=== PATIENT | male | born 1975 | race Caucasian/White ===

== ENCOUNTER → 2016-04-19 | Outpatient (CLI) | payer OTHER ==
[~2016-04-19] MED LIST: AMOX500T3 PO; DIPH-416 PO; ERTA1INJ IV; HYDR-5688 PO; OXYC-57 PO; OXYC1CAP5 PO; RIFA300C34 PO; RXC5 PO
== END | disposition home or self-care (01) ==
LOC: C.RDSM 14:22
PROVIDERS: ATTEND Physical Medicine & Rehabilitation Sports Medicine
DX: S46.012D Strain of muscle(s) and tendon(s) of the rotator cuff of left shoulder, subsequent encounter (principal); M25.612 Stiffness of left shoulder, not elsewhere classified; X58.XXXD Exposure to other specified factors, subsequent encounter

== ENCOUNTER → 2016-05-09 | Day surgery (SDC) | payer OTHER ==
[2016-04-29 10:31] VITALS: Ht 175.3 cm; Wt 75.0 kg
[~2016-05-09] VITALS: Ht 175.3 cm; Wt 75.0 kg
[~2016-05-09] MED LIST changes: +ARTIFICIAL TEARS OP OINT 3.5 GM TUBE ONE; +ATROPINE SULFATE 0.1 MG/ML 5ML SYR IV PRN; +CEFAZOLIN 1000MG/55 ML D5W IV SCH; +CEFAZOLIN IV 2,000 MG/60 ML D5W IV ONE; +DEXAMETHASONE SOD INJ 4 MG/ML VIAL IV PRN; +DEXAMETHASONE SOD INJ 4 MG/ML VIAL ONE; +EpHEDrine SULFATE INJ 50 MG/ML AMP IV PRN; +EpHEDrine SULFATE INJ 50 MG/ML AMP ONE; +EpINEphrine INJ 1MG/ML AMP 1 MG/ML AMP ONE; +FENTANYL CITRATE INJ 50 MCG/1 ML 2 ML VIAL IV PRN; +FENTANYL CITRATE INJ 50 MCG/1 ML 2 ML VIAL ONE; +GLYCOPYRROLATE INJ 0.2 MG/ML VIAL ONE; -HYDR-5688 PO; +KETOROLAC TROMETHAMINE 30 MG/ML VIAL IV. PRN; +LABETALOL HCL IV 5 MG/ML 20ML IV PRN; +LACTATED RINGER'S 1000ML 1,000 ML IV SCH; +LIDOCAINE HCL 2% 2 ML VIAL (20MG/ML) ONE; +LIDOCAINE/EPINEPHRINE 1% INJ 50 ML VIAL ONE; +METOCLOPRAMIDE HCL INJ 5 MG/ML 2 ML VIAL IV PRN; +MIDAZOLAM HCL 1 MG/ML 2ML VIAL ONE; +MoRPHine SULFATE 10 MG/ML CARP/VIAL IV PRN; +MoRPHine SULFATE 2 MG/ML CARP IV PRN; +MoRPHine SULFATE 4 MG/ML 1 ML CARP\\VIAL IV PRN; +NEOSTIGMINE METHYLSULFATE 5 MG/5 ML SYR ONE; +ONDANSETRON INJ 2 MG/ML 2 ML VIAL IV PRN; +ONDANSETRON INJ 2 MG/ML 2 ML VIAL ONE; -OXYC-57 PO; +OXYCODONE/ACETAMINOPHEN 5-325 TAB PO PRN; +PHENYLEPHRINE 100MCG/ML 5ML SYR IV PRN; +PHENYLEPHRINE HCL INJ 10 MG/ML VIAL ONE; +PROPOFOL IV EMULSION 10 MG/ML 20 ML VIAL IV ONE; +ROCURONIUM BROMIDE 10 MG/ML 5 ML VIAL ONE; +ROPIVACAINE 0.5% 5 MG/ML 30 ML VIAL ONE; +SODIUM CHLORIDE 0.9% 1000ML 1,000 ML IV SCH; +SUCCINYLCHOLINE CHLORIDE 20 MG/ML 10 ML VIAL IV ONE
--- NOTE | 2016-05-09 09:10 | History & Physical Bridge Note ---
H&P Re-Evaluation Bridge Note: I have examined the patient, reviewed the History & Physical and in the interval since the performance of the History & Physical I have noted the following changes of clinical significance: No changes noted
--- NOTE | 2016-05-09 14:04 | [facility] Post Operative Brief Note ---
Immediate Operative Summary Operative Date May 09, 2016. Pre-Operative Diagnosis Left Shoulder Stiffness, S/P Rotator Cuff Repair Post-Operative Diagnosis same Procedure(s) Performed Left Shoulder Arthroscopy,Extensive Debridement, Biopsies,manipulation Surgeon Dr. Mary Hodges Media Reconciliation Specialist Surgeon(s) Dr. Joesph Mayberry Estimated Blood Loss 50cc Findings healed cuff, adhesive capsulitis, extensive scarring Specimens 1. Left Shoulder SubAcromial Space--Do Not Combine--Janna Prosthetic Joint for Gram Stain, Aerobic, Anaerobic Culture--Will HOLD for 14 days for P.Acnes 2.Left Shoulder Gleno-Humeral Joint-Tissue Culture-Do Not Combine with SubAcromial Space Culture--Janna Prosthetic Joint for Gram Stain,Aerobic, Anaerobic Cultures--Will HOLD for 14 days for P.Acnes #2--Left Shoulder Gleno-Humeral Joint is also a Swab Culture Drains 0 Anesthesia general with block Complication(s) None Disposition Recovery Room / PACU
--- NOTE | 2016-05-09 14:18 | Discharge Instructions-SurgCtr ---
Discharge Instructions Visit Reason for Visit: Left Shoulder Stiffness, S/P Rotator Cuff Repair Discharge Discharge Diagnosis / Problem: status post left shoulder arthroscopic capsular release Discharge Goals Goal(s): Decrease discomfort, Improve function, Increase independence Activity Recommendations Activity Limitations: per Instructions/Follow-up section Anesthesia . Post Anesthesia Instructions: If you have had General Anesthesia or IV Sedation: * Do not drive today. * Resume driving when surgeon permits. * Do not make important decisions or sign legal documents today. * Call surgeon for: 1. Temperature elevations greater than 101 degrees F. 2. Uncontrollable pain. 3. Excessive bleeding. 4. Persistent nausea and vomiting. 5. Medication intolerance (nausea, vomiting or rash). * For nausea and vomiting use only clear liquids such as: tea, soda, bouillon until nausea subsides, then gradually increase diet as tolerated. * If you have any concerns or questions, call your surgeon's office. If physician is unavailable and it is an emergency, call 911 or go to the nearest emergency room. . Instructions / Follow-Up Instructions / Follow-Up The following are instructions to follow after "Shoulder Surgery" including, Acromioplasty, Rotator Cuff Repair and Instability Surgery ACTIVITY RECOMMENDATIONS: * Minimize activity after surgery. * No excessive walking, jogging, sports or laboring. * Return to activity is individualized depending on the patient and type of surgery. * Driving is not permitted until at least your first post operative visit. Please ask your doctor when it is safe to resume driving. * Expect increased discomfort with increased activity. Continue to ice the shoulder as needed. SCHOOL/WORK RECOMMENDATIONS: * You may return to sedentary work or school when you are feeling more comfortable. This is usually 3-7 days after surgery. MEDICATIONS: * You will have a prescription for pain medication and an anti-inflammatory medication after surgery. * Use the pain medication for severe pain and the anti-inflammatory for less severe pain. Once the pain medication has run out, try to use the anti-inflammatory medication. If this is not effective, contact the office for assistance. * The pain medication may cause nausea, constipation and drowsiness. You should see how they affect you before driving or similar activity. * The anti-inflammatory medication may cause stomach upset and bleeding. If this occurs let your doctor know immediately . * Take a stool softener like Colace or a laxative like Senokot to prevent constipation. DIET: * Resume previous diet. SPECIAL CARE: ICE: You have the option of an ice cooler, gel packs or ice bags. * If you have an ice cooler, refer to the instructions for that device. The ice cooler may be used continuously. * If you do not have an ice cooler, you will need to use ice bags or gel packs. Do not apply ice directly to the skin. Use a thin dressing or mac shirt between the skin and ice bag. Apply ice for 20-30 minutes and repeat every 2-4 hours. This is especially important for the first 7-10 days after surgery. Once the pain improves, use ice as needed. ELEVATION: * You may be more comfortable sleeping in an upright position. Use the sling to elevate your arm. DRESSING: * Your dressing will be changed at your first therapy appointment approximately 4-5 days after surgery. Band-aids, tape strips or gauze may be applied. You may then change your dressing daily. * Reapply dressing followed by the EBIce cooling pad (if chosen) and then the sling. * Always wash your hands prior to touching the incision area. * Once the stitches are removed, you may leave the wound open to air or cover with gauze. * Expect some bloody drainage for the first few days after surgery. * Leave the tape strips, if present, in place for 5-7 days. * Band-aids and gauze may be changed daily. * There may be a gauze pad in your armpit area. This can be changed daily or replaced by a dry washcloth. SLING/BRACE: * You will need to use a sling or brace after surgery. The length of time the sling is used is dependent upon the type of surgery performed. * Arthroscopic Acromioplasty requires use of the sling for 2-4 weeks for comfort. * Labral procedures and Rotator Cuff Repairs require use of the sling for a longer period of time. Please check with your doctor prior to discontinuing the sling. BATHING: * You may shower or sponge-bathe immediately after surgery. The post operative shoulder dressing is mostly water-tight. You may shower right over this dressing, but be reasonably careful not to get the gauze or incision wet. * Once the dressing has been changed on the fourth or fifth day after surgery, you may shower and get the incision wet. * Wash with regular soap and water. * Do not bathe (submerge the incision), soak, swim or use a hot tub until the incision is completely healed over with normal skin and the doctor has given the OK to proceed. * There is no need to apply any ointments, powders or salves to your incision. * Do not apply alcohol or hydrogen peroxide directly to the incision. * Diluted peroxide (50:50 mixture with sterile saline) may be used to clean dried blood from around the incision area. THERAPY: * You will begin therapy four or five days after surgery. * Organized therapy with the therapist is important for the first 2-4 months after surgery depending on the type of procedure. During that time you will attend therapy 1-3 times per week. * You will also need to do daily exercises for range of motion and strength as instructed. * Patients who have a Capsular Shift Procedure will need to abide by temporary range of motion limitations. * Patients having Rotator Cuff Surgery are not allowed to actively lift their arms until 4-6 weeks after surgery. * Please check with your doctor regarding appropriate motion restrictions. FOLLOW UP VISIT: * If not already scheduled, please call the office at to schedule a follow-up appointment for 10 days after surgery and monthly thereafter. * Follow up with physical therapy on day / [place] * Follow up with Dr. Hodges on 05/20/16 Procedures Procedures Performed: Left Shoulder Arthroscopy,Extensive Debridement, Biopsies,manipulation Pending Studies Studies pending at discharge: no Medical Emergencies . Who to Call and When: Medical Emergencies: If at any time you feel your situation is an emergency, please call 911 immediately. . Non-Emergent Contact Non-Emergency issues call your: Surgeon Call Non-Emergent contact if: you have a fever, your pain is not controlled, wound has increased drainage . . "Provider Documentation" section prepared by Fabian Murphy.
--- NOTE | 2016-05-09 14:20 | [facility] Post Operative Brief Note ---
Immediate Operative Summary Operative Date May 09, 2016. Pre-Operative Diagnosis Left Shoulder Stiffness, S/P Rotator Cuff Repair Post-Operative Diagnosis same Procedure(s) Performed Left Shoulder Arthroscopy,Extensive Debridement, Biopsies,manipulation Surgeon Dr. Mary Hodges Manager Field Service Surgeon(s) Dr. Fabian Mayberry Estimated Blood Loss 50cc Specimens 1. Left Shoulder SubAcromial Space--Do Not Combine--Janna Prosthetic Joint for Gram Stain, Aerobic, Anaerobic Culture--Will HOLD for 14 days for P.Acnes 2.Left Shoulder Gleno-Humeral Joint-Tissue Culture-Do Not Combine with SubAcromial Space Culture--Janna Prosthetic Joint for Gram Stain,Aerobic, Anaerobic Cultures--Will HOLD for 14 days for P.Acnes #2--Left Shoulder Gleno-Humeral Joint is also a Swab Culture Complication(s) None Disposition PCU
[2016-05-09 15:13] VITALS: TEMP 36.5
--- NOTE | 2016-05-09 15:32 | Anesthesia Progress Nt - [facility] ---
Anesthesia Post Op Note Date & Time May 09, 2016 at 15:33 Vital Signs Pain Intensity: 2 Vital Signs Past 12 Hours Date Time Temp Pulse Resp B/P Pulse Ox O2 Delivery O2 Flow Rate FiO2 05/09/16 15:13 36.5 88 16 117/72 95 Room Air 05/09/16 14:48 87 19 05/09/16 14:48 36.7 05/09/16 14:48 86 19 141/92 95 05/09/16 14:43 85 22 05/09/16 14:43 85 22 129/93 93 05/09/16 14:38 86 17 05/09/16 14:38 87 17 143/97 93 05/09/16 14:33 84 18 136/80 94 05/09/16 14:33 83 18 05/09/16 14:28 80 24 126/89 96 05/09/16 14:28 80 24 05/09/16 14:23 83 22 05/09/16 14:23 83 22 120/87 100 05/09/16 14:18 83 19 122/90 100 05/09/16 14:18 82 19 05/09/16 14:13 88 25 131/86 100 05/09/16 14:13 88 25 05/09/16 14:08 87 23 05/09/16 14:08 88 23 134/88 100 05/09/16 14:03 90 14 131/88 99 05/09/16 14:03 85 14 05/09/16 14:02 37.4 90 20 126/88 99 Diffusion Mask 8 05/09/16 10:30 70 05/09/16 10:30 71 22 98 05/09/16 10:28 104/65 05/09/16 10:25 69 18 98 05/09/16 10:25 69 05/09/16 10:23 107/68 05/09/16 10:20 70 05/09/16 10:20 71 21 98 05/09/16 10:18 113/77 05/09/16 10:15 70 05/09/16 10:15 69 22 98 05/09/16 10:13 120/71 05/09/16 10:10 69 05/09/16 10:10 69 21 98 05/09/16 10:08 119/75 05/09/16 10:05 74 05/09/16 10:05 75 23 98 05/09/16 10:04 77 05/09/16 10:04 80 23 98 05/09/16 10:03 127/71 05/09/16 09:59 80 20 98 05/09/16 09:59 78 05/09/16 09:58 126/73 05/09/16 09:54 75 05/09/16 09:54 77 16 97 05/09/16 09:53 125/79 05/09/16 09:49 79 05/09/16 09:49 77 22 98 05/09/16 09:48 123/78 05/09/16 09:44 76 05/09/16 09:44 76 21 98 05/09/16 09:43 115/78 05/09/16 09:39 76 26 99 05/09/16 09:39 78 05/09/16 09:38 105/79 05/09/16 09:36 109/76 05/09/16 09:34 64 0 05/09/16 09:29 74 0 05/09/16 09:24 66 0 05/09/16 09:19 67 0 05/09/16 09:14 0 05/09/16 09:09 0 05/09/16 09:04 0 05/09/16 08:59 0 05/09/16 08:37 36.7 77 16 109/77 97 Room Air Notes Mental Status: alert / awake / arousable, participated in evaluation Pt Amnestic to Procedure: Yes Nausea / Vomiting: adequately controlled Pain: adequately controlled Airway Patency, RR, SpO2: stable & adequate BP & HR: stable & adequate Hydration State: stable & adequate Anesthetic Complications: no major complications apparent
[2016-05-09 15:35] VITALS: BP 116/75; PULSE 88; O2SAT 95
--- NOTE | 2016-05-09 18:43 | OPERATIVE REPORT ---
DATE OF OPERATION: 05/09/2016 PREOPERATIVE DIAGNOSIS: Left shoulder stiffness, status post rotator cuff repair. POSTOPERATIVE DIAGNOSIS: Same. PROCEDURE: Bursal and articular synovial biopsies, examination and manipulation under anesthesia, extensive debridement of subacromial space, scar tissue and arthroscopic capsular releases intraarticularly. SURGEON: Miky Hodges MD CLOTH BLEACHING RANGE BACK TENDER: Fabian Sims MD fellow. No PA available. ANESTHESIA: General with interscalene block. INDICATIONS OF PROCEDURE: The patient is a 40-year-old male who is approximately 6 months status post a left shoulder rotator cuff repair. This was a traumatic tear that occurred at work and was fixed with 3 anchors. The patient has trouble with range of motion throughout his postoperative course and recently has plateaued with his range of motion. He has never had any erythema, swelling or wound drainage. He had no pain at rest or at night. The pain only when he stretches. X-rays show no complication. MRI shows that the rotator cuff is healed. There was no fluid around the anchors, capsular volume the small and there is mild bone marrow edema in the humeral head. There was no abscess formation. Preoperative sed rate, C-reactive protein and white blood cell count are all elevated. 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 He has not had fevers, chills, sweats, nausea, vomiting, diarrhea, cough, rhinorrhea, or dysuria. I discussed with him that there is a possibility that he may have an indolent infection based upon his stiffness and preoperative labs. Plan is to obtain some tissue biopsies to send for culture and proceed from there. Today, our main goal is to take the biopsy and do capsular releases to improve his range of motion. I discussed with him that if he did indeed have an infection, further surgery might be necessary along with consultation with ID. After surgery, he will be started on amoxicillin and rifampin to cover for appropriate Propionibacterium acnes potential infection. DESCRIPTION OF PROCEDURE: The patient was taken to the operating room. He was positioned lateral decubitus with the left side up. The left upper extremity was prepped and draped in usual sterile fashion. No bacteriostatic agents were utilized. The shoulder was not injected. Preoperative antibiotics were held and no epinephrine was utilized in the initial saline. Once the bursal and its articular biopsies and cultures had been obtained, intravenous antibiotics were administered. The patient was identified as [place]. He identified the left shoulder as the operative site. I marked it with my initials. A preop surgical time out was performed. Axillary roll was inserted. The torso was secured to the table. The table was airplaned posteriorly. The shoulder was placed into 10 pounds of lateral and distal traction. This was alternated between 5-10 pounds depending on surgical needs. The left upper extremity was prepped and draped in usual sterile fashion. Ioban was utilized to exclude the axilla from the field. The Arthrex shoulder tower was utilized. DVT prophylaxis was done with foot pumps and early mobility. The exam under anesthesia showed forward elevation of approximately 120 degrees compared 170 on the contralateral side. At this side, external rotation was about 0-5 degrees compared to 60 on the right. At 90 degrees of abduction, external rotation was about 45 compared 105 on the left. Internal rotation at 90 degrees of abduction was 30 degrees on the left, 45 on the right. A gentle manipulation was attempted; however, there was no improvement. The prior posterior soft spot viewing portal was utilized and access was gained at the subacromial space. A spinal needle was utilized to localize a portal distal anterior to the prior portal. Immediately on entering the subacromial space, significant scarring was noted with some degree of inflammation present. The shaver was introduced and the space was created for orientation and visualization. I then took multiple synovial biopsies using a basket punch. These were taken off the bursal tissue and scar tissue and multiple biopsies were taken in the region of the exposed sutures. The sutures were noted to be intact. No anchors were visualized. This was labeled as subacromial space. The scope was introduced into the joint and an anterior working portal in the rotator interval was created using the outside-in technique. There were significant adhesions noted between the rotator interval, the biceps, and the anterior humeral head. The rotator interval was thickened and contracted and this was debrided with basket forceps and motorized shaver. The rotator interval tissue was harvested with basket forceps. I also took some posterior capsular biopsy and anterior capsular biopsy. I then switched the scope anterior and through the posterior portal, I was able to take several biopsies directly from the suture anchor site of the rotator cuff repair. The biceps tendon was intact, but there were adhesions noted all around it. After taking the biopsies, the intravenous antibiotics were administered. I also took a swab culture from the area of the suture anchors posterosuperiorly that I could see. This was also sent as the articular specimen. These cultures were sent for Gram stain, aerobic and anaerobic and specific instructions as the prosthetic joint culture to held Propionibacterium acnes for 2 weeks. The adhesions between the biceps and rotator cuff were released. The adhesions between the biceps and the articular surfaces were also released. The biceps was normal. The labrum was intact circumferentially. The articular cartilage was normal throughout the shoulder with the exception of a 0.5 x 1.5 area where there was some shallow chondrosis noted superiorly. This would then perhaps 1 cm medial to the articular cartilage margin at about the center of the humeral head. The rotator cuff was noted to be intact. Sutures were visualized. There was normal appearing tissue from the rotator cuff coming down and attaching to the greater tuberosity which could not be displaced. The bare area was normal. The axillary pouch was contracted. The scope was placed anteriorly and the posterosuperior and posteroinferior capsule released under direct visualization and debrided with a shaver back to the muscular layer. The division inferiorly was carried anterior and I very judiciously debrided this capsule and took care to avoid the axillary nerve. The division was applied as close the glenoid as possible. The rotator interval was thoroughly debrided. The subscapularis was identified. There was a adherent capsular tissue to this and inferior to the subscapularis in the anteroinferior capsule was markedly thickened and contracted. This was carefully divided with basket forceps cautery and debrided with a shaver. Again, care was taken in the axillary pouch to not debride, avoid the axillary nerve, and stay close to the glenoid. This resulted in overall improvement of capsular volume. The subscap was normal. There were no loose bodies. The scope was then placed back into the subacromial space and a thorough subacromial bursectomy was performed. Adhesions between the deltoid and the humerus were released anterior, posterior and lateral. Adhesions between the rotator cuff and the acromion and throughout were released as well. Sutures were noted. The rotator cuff was intact without any evidence of tear. The instruments were removed from the shoulder. The portals were closed with 4-0 nylon, a soft sterile dressing was applied. A manipulation was then performed. Forward elevation I could get to about 150. This was difficult due to swelling. External rotation was 30-40 degrees at the side. With the arm at 90 degrees of abduction, external rotation was 85 degrees and internal rotation was about 45 degrees. I did feel a little bit giving of the tissue as I manipulated the arm. Manipulation throughout the range of external rotation and forward elevation was performed. ABD was placed in the armpit. A simple arm sling was applied. He was awakened from anesthesia without difficulty and taken to recovery room in stable condition. Specimens were as mentioned above. There were no complications. Counts were correct at the end of case. Blood loss was approximately 100 mL. At the conclusion of the operation, I spoke to patient's and informed her of my findings. Postoperative instructions were given. He will be started on the rifampin and amoxicillin. He is starting the physical therapy tomorrow and will have therapy with a therapist 3 times a week and then work daily several times on his own. I attest to the content of the Intraoperative Record and any orders documented therein. Any exceptions are noted below. MTDD
== END | disposition home or self-care (01) ==
LOC: X.SURG 08:20
PROVIDERS: ATTEND Physical Medicine & Rehabilitation Sports Medicine
DX: M25.612 Stiffness of left shoulder, not elsewhere classified (principal); S43.422D Sprain of left rotator cuff capsule, subsequent encounter; Z98.890 Other specified postprocedural states; X58.XXXD Exposure to other specified factors, subsequent encounter; M00.9 Pyogenic arthritis, unspecified; E78.5 Hyperlipidemia, unspecified

== ENCOUNTER → 2016-05-17 | Outpatient (CLI) | payer OTHER ==
[~2016-05-17] MED LIST changes: -ARTIFICIAL TEARS OP OINT 3.5 GM TUBE ONE; -ATROPINE SULFATE 0.1 MG/ML 5ML SYR IV PRN; -CEFAZOLIN 1000MG/55 ML D5W IV SCH; -CEFAZOLIN IV 2,000 MG/60 ML D5W IV ONE; -DEXAMETHASONE SOD INJ 4 MG/ML VIAL IV PRN; -DEXAMETHASONE SOD INJ 4 MG/ML VIAL ONE; -EpHEDrine SULFATE INJ 50 MG/ML AMP IV PRN; -EpHEDrine SULFATE INJ 50 MG/ML AMP ONE; -EpINEphrine INJ 1MG/ML AMP 1 MG/ML AMP ONE; -FENTANYL CITRATE INJ 50 MCG/1 ML 2 ML VIAL IV PRN; -FENTANYL CITRATE INJ 50 MCG/1 ML 2 ML VIAL ONE; -GLYCOPYRROLATE INJ 0.2 MG/ML VIAL ONE; -KETOROLAC TROMETHAMINE 30 MG/ML VIAL IV. PRN; -LABETALOL HCL IV 5 MG/ML 20ML IV PRN; -LACTATED RINGER'S 1000ML 1,000 ML IV SCH; -LIDOCAINE HCL 2% 2 ML VIAL (20MG/ML) ONE; -LIDOCAINE/EPINEPHRINE 1% INJ 50 ML VIAL ONE; -METOCLOPRAMIDE HCL INJ 5 MG/ML 2 ML VIAL IV PRN; -MIDAZOLAM HCL 1 MG/ML 2ML VIAL ONE; -MoRPHine SULFATE 10 MG/ML CARP/VIAL IV PRN; -MoRPHine SULFATE 2 MG/ML CARP IV PRN; -MoRPHine SULFATE 4 MG/ML 1 ML CARP\\VIAL IV PRN; -NEOSTIGMINE METHYLSULFATE 5 MG/5 ML SYR ONE; -ONDANSETRON INJ 2 MG/ML 2 ML VIAL IV PRN; -ONDANSETRON INJ 2 MG/ML 2 ML VIAL ONE; -OXYCODONE/ACETAMINOPHEN 5-325 TAB PO PRN; -PHENYLEPHRINE 100MCG/ML 5ML SYR IV PRN; -PHENYLEPHRINE HCL INJ 10 MG/ML VIAL ONE; -PROPOFOL IV EMULSION 10 MG/ML 20 ML VIAL IV ONE; -ROCURONIUM BROMIDE 10 MG/ML 5 ML VIAL ONE; -ROPIVACAINE 0.5% 5 MG/ML 30 ML VIAL ONE; -SODIUM CHLORIDE 0.9% 1000ML 1,000 ML IV SCH; -SUCCINYLCHOLINE CHLORIDE 20 MG/ML 10 ML VIAL IV ONE
== END | disposition home or self-care (01) ==
LOC: C.LAB1850 16:45
PROVIDERS: ATTEND Physical Medicine & Rehabilitation Sports Medicine
DX: Z01.818 Encounter for other preprocedural examination (principal)

== ENCOUNTER → 2016-05-22 | Day surgery (SDC) | payer OTHER ==
[~2016-05-22] VITALS: Ht 175.3 cm; Wt 75.0 kg
[~2016-05-22] MED LIST changes: +CEFTRIAXONE SOD INJ 2000 MG in DEXTROSE 5% 50ML IV SCH
[2016-05-22 13:05] VITALS: BP 127/80; PULSE 90; TEMP 37; O2SAT 97; Ht 175.3 cm; Wt 75.0 kg
== END | disposition home or self-care (01) ==
LOC: C.MTU 12:54
PROVIDERS: ATTEND Internal Medicine Infectious Disease
DX: M00.812 Arthritis due to other bacteria, left shoulder (principal); A49.8 Other bacterial infections of unspecified site

== ENCOUNTER → 2016-05-28 | Outpatient (CLI) | payer OTHER ==
[~2016-05-28] MED LIST changes: -AMOX500T3 PO; -CEFTRIAXONE SOD INJ 2000 MG in DEXTROSE 5% 50ML IV SCH; -RIFA300C34 PO
[2016-05-28 13:06] LABS: BASO % 0.2 %; BASO ABS # 0.03 K/uL (0-0.2); COMPLETE YES; EOS % 1.6 %; HEMATOCRIT 37.4 % (42-52); IG% 0.3 %; LYMPH % 10.1 %; LYMPH ABS # 1.58 K/uL (1.2-3.4); MEAN CELL VOLUME 90.1 fL (80-100); MEAN CORPUSCULAR HEMOGLOBIN 31.8 pg (25-34); MEAN CORPUSCULAR HGB CONC 35.3 g/dl (32-36); MEAN PLATELET VOLUME 9.2 fL (7.4-10.4); MONO % 7.2 %; NEUT % 80.6 %; PLATELET COUNT 270 K/uL (130-400); RED BLOOD COUNT 4.15 M/uL (4.7-6.1); WHITE BLOOD COUNT 15.61 K/uL (4.8-10.8)
[2016-05-28 13:35] LABS: ALT/SGPT 18 U/L (12-78); BLOOD UREA NITROGEN 8 mg/dl (7-18); BUN/CREATININE RATIO 9.1 (10-20); C-REACTIVE PROTEIN 6.13 mg/dl (0-0.29); CALCIUM 9.2 mg/dl (8.5-10.1); CARBON DIOXIDE 26 mmol/L (21-32); CHLORIDE 106 mmol/L (98-107); CREATININE 0.86 mg/dl (0.60-1.40); GLUCOSE 89 mg/dl (70-99); POTASSIUM 4.1 mmol/L (3.5-5.1); SODIUM 140 mmol/L (136-145)
[2016-05-28 13:37] LABS: ALB/GLOB RATIO 0.9 (0.9-2); ALKALINE PHOSPHATASE 90 U/L (45-117); AST/SGOT 9 U/L (15-37)
== END | disposition home or self-care (01) ==
LOC: C.LABSPEC 12:52
PROVIDERS: ATTEND Internal Medicine Infectious Disease
DX: A49.9 Bacterial infection, unspecified (principal); Z51.81 Encounter for therapeutic drug level monitoring; Z79.2 Long term (current) use of antibiotics

== ENCOUNTER → 2016-06-04 | Outpatient (CLI) | payer OTHER ==
[2016-06-04 13:17] LABS: BASO % 0.2 %; BASO ABS # 0.02 K/uL (0-0.2); COMPLETE YES; EOS % 2.6 %; HEMATOCRIT 37.9 % (42-52); IG% 0.4 %; LYMPH % 12.4 %; MEAN CELL VOLUME 90.2 fL (80-100); MEAN CORPUSCULAR HEMOGLOBIN 30.7 pg (25-34); MEAN PLATELET VOLUME 9.7 fL (7.4-10.4); MONO % 9.7 %; NEUT % 74.7 %; PLATELET COUNT 265 K/uL (130-400); WHITE BLOOD COUNT 12.11 K/uL (4.8-10.8)
[2016-06-04 13:23] LABS: ALT/SGPT 23 U/L (12-78); BLOOD UREA NITROGEN 8 mg/dl (7-18); BUN/CREATININE RATIO 9.9 (10-20); C-REACTIVE PROTEIN 8.28 mg/dl (0-0.29); CALCIUM 8.7 mg/dl (8.5-10.1); CARBON DIOXIDE 20 mmol/L (21-32); CHLORIDE 106 mmol/L (98-107); GLUCOSE 100 mg/dl (70-99); POTASSIUM 3.6 mmol/L (3.5-5.1); SODIUM 136 mmol/L (136-145)
[2016-06-04 13:26] LABS: ALB/GLOB RATIO 0.8 (0.9-2); ALKALINE PHOSPHATASE 94 U/L (45-117); AST/SGOT 11 U/L (15-37)
== END | disposition home or self-care (01) ==
LOC: C.LABSPEC 12:41
PROVIDERS: ATTEND Internal Medicine Infectious Disease
DX: A49.9 Bacterial infection, unspecified (principal); Y99.0 Civilian activity done for income or pay

== ENCOUNTER → 2016-06-06 | Outpatient (CLI) | payer OTHER | END | disposition home or self-care (01) | LOC: C.LAB1850 14:21 | PROVIDERS: ATTEND Internal Medicine Infectious Disease | DX: R19.7 Diarrhea, unspecified (principal) ==

== ENCOUNTER → 2016-06-11 | Outpatient (CLI) | payer OTHER ==
[~2016-06-11] MED LIST changes: -OXYC1CAP5 PO
[2016-06-11 13:00] LABS: BASO % 0.4 %; BASO ABS # 0.06 K/uL (0-0.2); COMPLETE YES; EOS % 2.8 %; HEMATOCRIT 38.7 % (42-52); LYMPH % 17.1 %; LYMPH ABS # 2.31 K/uL (1.2-3.4); MEAN CELL VOLUME 91.5 fL (80-100); MEAN CORPUSCULAR HEMOGLOBIN 32.2 pg (25-34); MEAN CORPUSCULAR HGB CONC 35.1 g/dl (32-36); MEAN PLATELET VOLUME 9.2 fL (7.4-10.4); MONO % 7.3 %; NEUT % 71.4 %; PLATELET COUNT 352 K/uL (130-400); RED BLOOD COUNT 4.23 M/uL (4.7-6.1); WHITE BLOOD COUNT 13.49 K/uL (4.8-10.8)
[2016-06-11 13:08] LABS: ALT/SGPT 40 U/L (12-78); BLOOD UREA NITROGEN 11 mg/dl (7-18); BUN/CREATININE RATIO 12.7 (10-20); C-REACTIVE PROTEIN 2.71 mg/dl (0-0.29); CARBON DIOXIDE 23 mmol/L (21-32); CHLORIDE 107 mmol/L (98-107); CREATININE 0.85 mg/dl (0.60-1.40); GLUCOSE 79 mg/dl (70-99); SODIUM 138 mmol/L (136-145)
[2016-06-11 13:11] LABS: ALB/GLOB RATIO 0.9 (0.9-2); ALKALINE PHOSPHATASE 111 U/L (45-117); AST/SGOT 19 U/L (15-37)
== END | disposition home or self-care (01) ==
LOC: C.LABSPEC 12:46
PROVIDERS: ATTEND Internal Medicine Infectious Disease
DX: A49.9 Bacterial infection, unspecified (principal)

== ENCOUNTER → 2016-06-17 | Outpatient (CLI) | payer OTHER ==
[2016-06-17 19:04] LABS: BASO % 0.3 %; BASO ABS # 0.04 K/uL (0-0.2); COMPLETE YES; EOS % 2.2 %; HEMATOCRIT 36.3 % (42-52); IG% 0.2 %; LYMPH % 14.5 %; LYMPH ABS # 2.11 K/uL (1.2-3.4); MEAN CELL VOLUME 87.7 fL (80-100); MEAN CORPUSCULAR HEMOGLOBIN 30.9 pg (25-34); MEAN CORPUSCULAR HGB CONC 35.3 g/dl (32-36); MEAN PLATELET VOLUME 9.4 fL (7.4-10.4); MONO % 6.3 %; NEUT % 76.5 %; PLATELET COUNT 321 K/uL (130-400); RED BLOOD COUNT 4.14 M/uL (4.7-6.1); WHITE BLOOD COUNT 14.52 K/uL (4.8-10.8)
[2016-06-17 19:18] LABS: ALB/GLOB RATIO 0.9 (0.9-2); ALKALINE PHOSPHATASE 102 U/L (45-117); ALT/SGPT 36 U/L (12-78); AST/SGOT 16 U/L (15-37); BLOOD UREA NITROGEN 9 mg/dl (7-18); BUN/CREATININE RATIO 8.4 (10-20); C-REACTIVE PROTEIN 2.55 mg/dl (0-0.29); CALCIUM 8.4 mg/dl (8.5-10.1); CARBON DIOXIDE 26 mmol/L (21-32); CHLORIDE 107 mmol/L (98-107); GLUCOSE 117 mg/dl (70-99); POTASSIUM 3.5 mmol/L (3.5-5.1); SODIUM 140 mmol/L (136-145)
== END | disposition home or self-care (01) ==
LOC: C.LABSPEC 09:03
PROVIDERS: ATTEND Internal Medicine Infectious Disease
DX: A49.9 Bacterial infection, unspecified (principal)

== ENCOUNTER → 2016-06-25 | Outpatient (CLI) | payer OTHER ==
[2016-06-25 18:30] LABS: BASO % 0.2 %; BASO ABS # 0.03 K/uL (0-0.2); COMPLETE YES; EOS % 3.2 %; HEMATOCRIT 37.9 % (42-52); IG% 0.2 %; LYMPH % 12.8 %; LYMPH ABS # 1.54 K/uL (1.2-3.4); MEAN CELL VOLUME 90.5 fL (80-100); MEAN CORPUSCULAR HEMOGLOBIN 30.8 pg (25-34); MEAN PLATELET VOLUME 9.4 fL (7.4-10.4); MONO % 7.6 %; PLATELET COUNT 284 K/uL (130-400); RED BLOOD COUNT 4.19 M/uL (4.7-6.1); WHITE BLOOD COUNT 12.04 K/uL (4.8-10.8)
[2016-06-25 18:39] LABS: ALT/SGPT 30 U/L (12-78); AST/SGOT 13 U/L (15-37); BLOOD UREA NITROGEN 8 mg/dl (7-18); CARBON DIOXIDE 27 mmol/L (21-32); CHLORIDE 105 mmol/L (98-107); CREATININE 0.93 mg/dl (0.60-1.40); GLUCOSE 74 mg/dl (70-99); POTASSIUM 4.3 mmol/L (3.5-5.1); SODIUM 139 mmol/L (136-145)
[2016-06-25 18:42] LABS: ALB/GLOB RATIO 0.9 (0.9-2); ALKALINE PHOSPHATASE 107 U/L (45-117); C-REACTIVE PROTEIN 4.34 mg/dl (0-0.29)
== END | disposition home or self-care (01) ==
LOC: C.LABSPEC 17:57
PROVIDERS: ATTEND Internal Medicine Infectious Disease
DX: A49.9 Bacterial infection, unspecified (principal)

== ENCOUNTER → 2016-07-02 | Outpatient (CLI) | payer OTHER ==
[2016-07-02 13:58] LABS: BASO % 0.4 %; BASO ABS # 0.05 K/uL (0-0.2); COMPLETE YES; EOS % 2.4 %; HEMATOCRIT 38.6 % (42-52); IG% 0.3 %; LYMPH % 10.8 %; LYMPH ABS # 1.37 K/uL (1.2-3.4); MEAN CELL VOLUME 92.1 fL (80-100); MEAN CORPUSCULAR HEMOGLOBIN 31.3 pg (25-34); MEAN CORPUSCULAR HGB CONC 33.9 g/dl (32-36); MEAN PLATELET VOLUME 9.4 fL (7.4-10.4); MONO % 6.7 %; NEUT % 79.4 %; PLATELET COUNT 303 K/uL (130-400); RED BLOOD COUNT 4.19 M/uL (4.7-6.1)
[2016-07-02 14:21] LABS: ALT/SGPT 26 U/L (12-78); AST/SGOT 12 U/L (15-37); BLOOD UREA NITROGEN 7 mg/dl (7-18); BUN/CREATININE RATIO 7.1 (10-20); CARBON DIOXIDE 25 mmol/L (21-32); CHLORIDE 108 mmol/L (98-107); GLUCOSE 76 mg/dl (70-99); SODIUM 141 mmol/L (136-145)
[2016-07-02 14:26] LABS: ALB/GLOB RATIO 0.9 (0.9-2); ALKALINE PHOSPHATASE 112 U/L (45-117); C-REACTIVE PROTEIN 3.84 mg/dl (0-0.29)
== END | disposition home or self-care (01) ==
LOC: C.LABSPEC 13:23
PROVIDERS: ATTEND Internal Medicine Infectious Disease
DX: A49.9 Bacterial infection, unspecified (principal)

== ENCOUNTER → 2016-07-05 | Outpatient (CLI) | payer OTHER ==
[~2016-07-05] MED LIST changes: +IBUP-1459 PO; +OXYC1TAB3 PO
== END | disposition home or self-care (01) ==
LOC: C.RDSM 12:00
PROVIDERS: ATTEND Physical Medicine & Rehabilitation Sports Medicine
DX: T81.4XXD Infection following a procedure, subsequent encounter (principal); Y83.9 Surgical procedure, unspecified as the cause of abnormal reaction of the patient, or of later complication, without mention of misadventure at the time of the procedure

== ENCOUNTER → 2016-07-09 | Outpatient (CLI) | payer OTHER ==
[2016-07-09 13:37] LABS: BASO % 0.4 %; BASO ABS # 0.05 K/uL (0-0.2); COMPLETE YES; EOS % 2.3 %; HEMATOCRIT 38.2 % (42-52); IG% 0.6 %; LYMPH % 13.7 %; LYMPH ABS # 1.72 K/uL (1.2-3.4); MEAN CELL VOLUME 91.4 fL (80-100); MEAN CORPUSCULAR HEMOGLOBIN 30.9 pg (25-34); MEAN CORPUSCULAR HGB CONC 33.8 g/dl (32-36); MEAN PLATELET VOLUME 9.4 fL (7.4-10.4); MONO % 7.2 %; NEUT % 75.8 %; PLATELET COUNT 329 K/uL (130-400); RED BLOOD COUNT 4.18 M/uL (4.7-6.1); WHITE BLOOD COUNT 12.53 K/uL (4.8-10.8)
[2016-07-09 13:59] LABS: ALB/GLOB RATIO 0.9 (0.9-2); ALKALINE PHOSPHATASE 115 U/L (45-117); ALT/SGPT 25 U/L (12-78); AST/SGOT 11 U/L (15-37); BLOOD UREA NITROGEN 9 mg/dl (7-18); BUN/CREATININE RATIO 10.1 (10-20); CALCIUM 9.3 mg/dl (8.5-10.1); CARBON DIOXIDE 27 mmol/L (21-32); CHLORIDE 107 mmol/L (98-107); CREATININE 0.87 mg/dl (0.60-1.40); GLUCOSE 96 mg/dl (70-99); POTASSIUM 4.2 mmol/L (3.5-5.1); SODIUM 140 mmol/L (136-145)
[2016-07-09 14:00] LABS: C-REACTIVE PROTEIN 2.43 mg/dl (0-0.29)
--- NOTE | 2016-07-18 13:37 | CODING QUERY NO DIAGNOSIS ---
TREATMENT RENDERED WITHOUT A DIAGNOSIS To promote full compliance with coding requirements relating to patient care, physician participation is requested in all cases of counselor camp uncertainty. Please assist us with providing a diagnosis/symptom for the test(s) below: A diagnosis/symptom was not documented on your Order. A valid diagnosis/symptom is required to bill all insurances. Please remember that we are unable to code a diagnosis of rule out, probable, possible, questionable, or suspected. Tests that require a diagnosis: CBC W/AUTO DIFF SED-RATE COMP MET PROFILE C-REACTIVE PROTEIN Provider Signature: Date: Thank you Radha Austin [employer] Information Management Once completed, please kindly fax back to [phone] For questions please call [phone]
== END | disposition home or self-care (01) ==
LOC: C.LABSPEC 12:50
PROVIDERS: ATTEND Internal Medicine Infectious Disease
DX: A49.9 Bacterial infection, unspecified (principal)

== ENCOUNTER → 2016-07-24 | Outpatient (CLI) | payer OTHER ==
[2016-07-24 14:05] LABS: BASO % 0.4 %; BASO ABS # 0.05 K/uL (0-0.2); COMPLETE YES; EOS % 2.8 %; HEMATOCRIT 38.8 % (42-52); IG% 0.4 %; LYMPH % 13.4 %; LYMPH ABS # 1.52 K/uL (1.2-3.4); MEAN CELL VOLUME 93.3 fL (80-100); MEAN CORPUSCULAR HEMOGLOBIN 30.3 pg (25-34); MEAN CORPUSCULAR HGB CONC 32.5 g/dl (32-36); MEAN PLATELET VOLUME 9.4 fL (7.4-10.4); MONO % 7.1 %; NEUT % 75.9 %; PLATELET COUNT 261 K/uL (130-400); RED BLOOD COUNT 4.16 M/uL (4.7-6.1); WHITE BLOOD COUNT 11.34 K/uL (4.8-10.8)
[2016-07-24 15:46] LABS: ALKALINE PHOSPHATASE 123 U/L (45-117); ALT/SGPT 44 U/L (12-78); AST/SGOT 22 U/L (15-37); BLOOD UREA NITROGEN 9 mg/dl (7-18); BUN/CREATININE RATIO 9.2 (10-20); C-REACTIVE PROTEIN 2.17 mg/dl (0-0.29); CALCIUM 9.2 mg/dl (8.5-10.1); CARBON DIOXIDE 27 mmol/L (21-32); CHLORIDE 108 mmol/L (98-107); CREATININE 0.99 mg/dl (0.60-1.40); GLUCOSE 81 mg/dl (70-99); POTASSIUM 3.9 mmol/L (3.5-5.1); SODIUM 140 mmol/L (136-145)
== END | disposition home or self-care (01) ==
LOC: C.LABSPEC 12:36
PROVIDERS: ATTEND Internal Medicine Infectious Disease
DX: A49.9 Bacterial infection, unspecified (principal); Z79.2 Long term (current) use of antibiotics

== ENCOUNTER → 2016-08-06 | Outpatient (CLI) | payer OTHER ==
[2016-08-06 10:15] LABS: BASO % 0.4 %; BASO ABS # 0.05 K/uL (0-0.2); COMPLETE YES; EOS % 2.5 %; HEMATOCRIT 41.6 % (42-52); IG% 0.3 %; LYMPH % 15.8 %; LYMPH ABS # 1.76 K/uL (1.2-3.4); MEAN CELL VOLUME 91.4 fL (80-100); MEAN CORPUSCULAR HEMOGLOBIN 30.3 pg (25-34); MEAN CORPUSCULAR HGB CONC 33.2 g/dl (32-36); MEAN PLATELET VOLUME 9.2 fL (7.4-10.4); PLATELET COUNT 298 K/uL (130-400); RED BLOOD COUNT 4.55 M/uL (4.7-6.1); WHITE BLOOD COUNT 11.15 K/uL (4.8-10.8)
[2016-08-06 10:25] LABS: ALT/SGPT 29 U/L (12-78); BLOOD UREA NITROGEN 12 mg/dl (7-18); BUN/CREATININE RATIO 14.1 (10-20); C-REACTIVE PROTEIN 1.53 mg/dl (0-0.29); CARBON DIOXIDE 24 mmol/L (21-32); CHLORIDE 106 mmol/L (98-107); CREATININE 0.87 mg/dl (0.60-1.40); GLUCOSE 93 mg/dl (70-99); POTASSIUM 3.8 mmol/L (3.5-5.1); SODIUM 140 mmol/L (136-145)
[2016-08-06 10:28] LABS: ALB/GLOB RATIO 1.1 (0.9-2); ALKALINE PHOSPHATASE 121 U/L (45-117); AST/SGOT 13 U/L (15-37)
[2016-08-06 10:29] LABS: CALCIUM 9.4 mg/dl (8.5-10.1)
== END | disposition home or self-care (01) ==
LOC: C.LABSPEC 09:41
PROVIDERS: ATTEND Physical Medicine & Rehabilitation Sports Medicine
DX: S46.012D Strain of muscle(s) and tendon(s) of the rotator cuff of left shoulder, subsequent encounter (principal); X58.XXXD Exposure to other specified factors, subsequent encounter; M25.612 Stiffness of left shoulder, not elsewhere classified; T81.4XXD Infection following a procedure, subsequent encounter; Y83.9 Surgical procedure, unspecified as the cause of abnormal reaction of the patient, or of later complication, without mention of misadventure at the time of the procedure; A49.9 Bacterial infection, unspecified; Z51.81 Encounter for therapeutic drug level monitoring; Z79.2 Long term (current) use of antibiotics

== ENCOUNTER → 2016-08-13 | Outpatient (CLI) | payer OTHER ==
[2016-08-13 12:46] LABS: BASO % 0.3 %; BASO ABS # 0.03 K/uL (0-0.2); COMPLETE YES; EOS % 3.5 %; HEMATOCRIT 41.1 % (42-52); IG% 0.3 %; LYMPH % 16.1 %; LYMPH ABS # 1.64 K/uL (1.2-3.4); MEAN CELL VOLUME 93.2 fL (80-100); MEAN CORPUSCULAR HEMOGLOBIN 31.3 pg (25-34); MEAN CORPUSCULAR HGB CONC 33.6 g/dl (32-36); MEAN PLATELET VOLUME 9.8 fL (7.4-10.4); MONO % 9.4 %; NEUT % 70.4 %; PLATELET COUNT 282 K/uL (130-400); RED BLOOD COUNT 4.41 M/uL (4.7-6.1)
[2016-08-13 15:15] LABS: ALT/SGPT 22 U/L (12-78); AST/SGOT 10 U/L (15-37); BLOOD UREA NITROGEN 10 mg/dl (7-18); BUN/CREATININE RATIO 10.7 (10-20); CALCIUM 9.1 mg/dl (8.5-10.1); CARBON DIOXIDE 25 mmol/L (21-32); CHLORIDE 108 mmol/L (98-107); CREATININE 0.94 mg/dl (0.60-1.40); GLUCOSE 85 mg/dl (70-99); POTASSIUM 4.2 mmol/L (3.5-5.1); SODIUM 140 mmol/L (136-145)
[2016-08-13 15:18] LABS: ALKALINE PHOSPHATASE 117 U/L (45-117); C-REACTIVE PROTEIN 1.91 mg/dl (0-0.29)
== END | disposition home or self-care (01) ==
LOC: C.LABSPEC 11:59
PROVIDERS: ATTEND Internal Medicine Infectious Disease
DX: A49.9 Bacterial infection, unspecified (principal); Z79.2 Long term (current) use of antibiotics

== ENCOUNTER → 2016-08-20 | Outpatient (CLI) | payer OTHER ==
[2016-08-20 13:23] LABS: BASO % 0.6 %; BASO ABS # 0.06 K/uL (0-0.2); COMPLETE YES; EOS % 2.6 %; HEMATOCRIT 40.6 % (42-52); IG% 0.3 %; LYMPH % 17.1 %; LYMPH ABS # 1.84 K/uL (1.2-3.4); MEAN CELL VOLUME 92.5 fL (80-100); MEAN CORPUSCULAR HEMOGLOBIN 30.1 pg (25-34); MEAN CORPUSCULAR HGB CONC 32.5 g/dl (32-36); MEAN PLATELET VOLUME 9.8 fL (7.4-10.4); MONO % 7.3 %; NEUT % 72.1 %; PLATELET COUNT 267 K/uL (130-400); RED BLOOD COUNT 4.39 M/uL (4.7-6.1); WHITE BLOOD COUNT 10.78 K/uL (4.8-10.8)
[2016-08-20 13:50] LABS: ALT/SGPT 26 U/L (12-78); BLOOD UREA NITROGEN 15 mg/dl (7-18); BUN/CREATININE RATIO 17.2 (10-20); C-REACTIVE PROTEIN 1.13 mg/dl (0-0.29); CARBON DIOXIDE 23 mmol/L (21-32); CHLORIDE 108 mmol/L (98-107); CREATININE 0.88 mg/dl (0.60-1.40); GLUCOSE 86 mg/dl (70-99); POTASSIUM 4.3 mmol/L (3.5-5.1); SODIUM 140 mmol/L (136-145)
[2016-08-20 13:52] LABS: ALB/GLOB RATIO 1.1 (0.9-2); ALKALINE PHOSPHATASE 103 U/L (45-117); AST/SGOT 16 U/L (15-37); CALCIUM 9.1 mg/dl (8.5-10.1)
== END | disposition home or self-care (01) ==
LOC: C.LABSPEC 12:23
PROVIDERS: ATTEND Internal Medicine Infectious Disease
DX: A49.9 Bacterial infection, unspecified (principal)

== ENCOUNTER → 2016-08-26 | Outpatient (CLI) | payer OTHER ==
[2016-08-26 18:42] LABS: BASO % 0.3 %; BASO ABS # 0.04 K/uL (0-0.2); COMPLETE YES; EOS % 1.3 %; HEMATOCRIT 40.2 % (42-52); IG% 0.4 %; LYMPH % 13.9 %; LYMPH ABS # 1.87 K/uL (1.2-3.4); MEAN CELL VOLUME 92.4 fL (80-100); MEAN CORPUSCULAR HEMOGLOBIN 31.3 pg (25-34); MEAN CORPUSCULAR HGB CONC 33.8 g/dl (32-36); MEAN PLATELET VOLUME 9.6 fL (7.4-10.4); MONO % 7.4 %; NEUT % 76.7 %; PLATELET COUNT 292 K/uL (130-400); RED BLOOD COUNT 4.35 M/uL (4.7-6.1); WHITE BLOOD COUNT 13.42 K/uL (4.8-10.8)
[2016-08-26 18:58] LABS: ALT/SGPT 26 U/L (12-78); BLOOD UREA NITROGEN 12 mg/dl (7-18); BUN/CREATININE RATIO 12.1 (10-20); CALCIUM 8.5 mg/dl (8.5-10.1); CARBON DIOXIDE 25 mmol/L (21-32); CHLORIDE 107 mmol/L (98-107); GLUCOSE 88 mg/dl (70-99); POTASSIUM 3.8 mmol/L (3.5-5.1); SODIUM 140 mmol/L (136-145)
[2016-08-26 19:02] LABS: ALB/GLOB RATIO 1.2 (0.9-2); ALKALINE PHOSPHATASE 109 U/L (45-117); AST/SGOT 15 U/L (15-37); C-REACTIVE PROTEIN 2.38 mg/dl (0-0.29)
== END | disposition home or self-care (01) ==
LOC: C.LABSPEC 17:57
PROVIDERS: ATTEND Internal Medicine Infectious Disease
DX: A49.9 Bacterial infection, unspecified (principal)

== ENCOUNTER → 2016-08-29 | Day surgery (SDC) | payer OTHER ==
[2016-08-19 11:58] VITALS: Ht 175.3 cm; Wt 72.7 kg
[~2016-08-29] VITALS: Ht 175.3 cm; Wt 72.7 kg
[~2016-08-29] MED LIST changes: +ARTIFICIAL TEARS OP OINT 3.5 GM TUBE ONE; +ATROPINE SULFATE 0.1 MG/ML 5ML SYR IV PRN; +BUPIVACAINE/EPINEPHRINE 0.25% 1:200,000 30 ML VIAL ONE; +CEFAZOLIN 1000MG/55 ML D5W IV SCH; +DEXAMETHASONE SOD INJ 4 MG/ML VIAL ONE; +ERTAPENEM IV 1 GM in SODIUM CHLOR 0.9% AD-VAN 50ML IV SCH; +EpHEDrine SULFATE INJ 50 MG/ML AMP IV PRN; +EpINEphrine INJ 1MG/ML AMP 1 MG/ML AMP ONE; +FENTANYL CITRATE INJ 50 MCG/1 ML 2 ML VIAL IV PRN; +FENTANYL CITRATE INJ 50 MCG/1 ML 2 ML VIAL ONE; +GENTAMICIN SULFATE 40 MG/ML 2 ML VIAL ONE; +GENTAMICIN SULFATE 40 MG/ML VIAL IV SCH; +HYDROmorphone INJ 1 MG/ML SYR ONE; +LACTATED RINGER'S 1000ML 1,000 ML IV SCH; +LIDOCAINE HCL 2% 2 ML VIAL (20MG/ML) ONE; +LIDOCAINE/EPINEPHRINE 1% INJ 50 ML VIAL ONE; +MIDAZOLAM HCL 1 MG/ML 2ML VIAL ONE; +MoRPHine SULFATE 2 MG/ML CARP IV PRN; +MoRPHine SULFATE 4 MG/ML 1 ML CARP\\VIAL IV PRN; +ONDANSETRON INJ 2 MG/ML 2 ML VIAL IV PRN; +ONDANSETRON INJ 2 MG/ML 2 ML VIAL ONE; +OXYCODONE HCL IR 5 MG TAB (IMMEDIATE RELEASE) PO PRN; +POVIDONE-IODINE OP SOLN 30 ML BTL ONE; +PROPOFOL IV EMULSION 10 MG/ML 20 ML VIAL IV ONE; +ROPIVACAINE 0.5% 5 MG/ML 30 ML VIAL ONE; +SODIUM CHLORIDE 0.9% 1000ML 1,000 ML IV SCH; +VANCOMYCIN HCL 1000MG/20ML VIAL ONE
--- NOTE | 2016-08-29 11:47 | [facility] Post Operative Brief Note ---
Immediate Operative Summary Operative Date August 29, 2016. Pre-Operative Diagnosis Left Shoulder Infection Post-Operative Diagnosis Same Procedure(s) Performed Left Shoulder Scope, Debridement, Open Removal of Deep Hardware, Irrigation /Debridement, Insertion of Stimulan Beads Surgeon Dr. Mary Hodges Corporate Bond Trader Surgeon(s) Cindi Coon PAC Estimated Blood Loss 10 cc Findings intact rotator cuff Specimens A. Retained Hardware B culture x 3 Drains 0 Anesthesia LMA with block Complication(s) None Disposition Recovery Room / PACU
--- NOTE | 2016-08-29 11:50 | Discharge Instructions-SurgCtr ---
Discharge Instructions Date of Service August 29, 2016. Visit Reason for Visit: Left Shoulder Infection Discharge Discharge Diagnosis / Problem: left shoulder post op infection; s/p RTC repair Discharge Goals Goal(s): Decrease discomfort, Improve function, Increase independence Medications Stopped Medications Name(s): Invanz antibiotic-last dose 1 week ago Restart Stopped Medication(s): Resume Invanz per Infectious Disease on 08/30/16. You will have a dose at the Surgery center on 08/29/16. Activity Recommendations Activity Limitations: per Instructions/Follow-up section Anesthesia . Post Anesthesia Instructions: If you have had General Anesthesia or IV Sedation: * Do not drive today. * Resume driving when surgeon permits. * Do not make important decisions or sign legal documents today. * Call surgeon for: 1. Temperature elevations greater than 101 degrees F. 2. Uncontrollable pain. 3. Excessive bleeding. 4. Persistent nausea and vomiting. 5. Medication intolerance (nausea, vomiting or rash). * For nausea and vomiting use only clear liquids such as: tea, soda, bouillon until nausea subsides, then gradually increase diet as tolerated. * If you have any concerns or questions, call your surgeon's office. If physician is unavailable and it is an emergency, call 911 or go to the nearest emergency room. . Instructions / Follow-Up Instructions / Follow-Up The following are instructions to follow after "Shoulder Surgery" including, Acromioplasty, Rotator Cuff Repair and Instability Surgery ACTIVITY RECOMMENDATIONS: * Minimize activity after surgery. * No excessive walking, jogging, sports or laboring. * Return to activity is individualized depending on the patient and type of surgery. * Driving is not permitted until at least your first post operative visit. Please ask your doctor when it is safe to resume driving. * Expect increased discomfort with increased activity. Continue to ice the shoulder as needed. SCHOOL/WORK RECOMMENDATIONS: * You may return to sedentary work or school when you are feeling more comfortable. This is usually 3-7 days after surgery. MEDICATIONS: * You will have a prescription for pain medication and an anti-inflammatory medication after surgery. * Use the pain medication for severe pain and the anti-inflammatory for less severe pain. Once the pain medication has run out, try to use the anti-inflammatory medication. If this is not effective, contact the office for assistance. * The pain medication may cause nausea, constipation and drowsiness. You should see how they affect you before driving or similar activity. * The anti-inflammatory medication may cause stomach upset and bleeding. If this occurs let your doctor know immediately . * Take a stool softener like Colace or a laxative like Senokot to prevent constipation. DIET: * Resume previous diet. SPECIAL CARE: ICE: You have the option of an ice cooler, gel packs or ice bags. * If you have an ice cooler, refer to the instructions for that device. The ice cooler may be used continuously. * If you do not have an ice cooler, you will need to use ice bags or gel packs. Do not apply ice directly to the skin. Use a thin dressing or mac shirt between the skin and ice bag. Apply ice for 20-30 minutes and repeat every 2-4 hours. This is especially important for the first 7-10 days after surgery. Once the pain improves, use ice as needed. ELEVATION: * You may be more comfortable sleeping in an upright position. Use the sling to elevate your arm. DRESSING: * Your dressing will be changed at your first therapy appointment approximately 4-5 days after surgery. Band-aids, tape strips or gauze may be applied. You may then change your dressing daily. * Reapply dressing followed by the EBIce cooling pad (if chosen) and then the sling. * Always wash your hands prior to touching the incision area. * Once the stitches are removed, you may leave the wound open to air or cover with gauze. * Expect some bloody drainage for the first few days after surgery. * Leave the tape strips, if present, in place for 5-7 days. * Band-aids and gauze may be changed daily. * There may be a gauze pad in your armpit area. This can be changed daily or replaced by a dry washcloth. SLING/BRACE: * You will need to use a sling or brace after surgery. The length of time the sling is used is dependent upon the type of surgery performed. * Arthroscopic Acromioplasty requires use of the sling for 2-4 weeks for comfort. * Labral procedures and Rotator Cuff Repairs require use of the sling for a longer period of time. Please check with your doctor prior to discontinuing the sling. BATHING: * You may shower or sponge-bathe immediately after surgery. The post operative shoulder dressing is mostly water-tight. You may shower right over this dressing, but be reasonably careful not to get the gauze or incision wet. * Once the dressing has been changed on the fourth or fifth day after surgery, you may shower and get the incision wet. * Wash with regular soap and water. * Do not bathe (submerge the incision), soak, swim or use a hot tub until the incision is completely healed over with normal skin and the doctor has given the OK to proceed. * There is no need to apply any ointments, powders or salves to your incision. * Do not apply alcohol or hydrogen peroxide directly to the incision. * Diluted peroxide (50:50 mixture with sterile saline) may be used to clean dried blood from around the incision area. THERAPY: * You will begin therapy four or five days after surgery. * Organized therapy with the therapist is important for the first 2-4 months after surgery depending on the type of procedure. During that time you will attend therapy 1-3 times per week. * You will also need to do daily exercises for range of motion and strength as instructed. * Patients who have a Capsular Shift Procedure will need to abide by temporary range of motion limitations. * Patients having Rotator Cuff Surgery are not allowed to actively lift their arms until 4-6 weeks after surgery. * Please check with your doctor regarding appropriate motion restrictions. FOLLOW UP VISIT: * If not already scheduled, please call the office at to schedule a follow-up appointment for 10 days after surgery and monthly thereafter. * You have a follow up appointment with Dr. Hodges on 09/11/16 at 12:15 p.m. * You should begin physical therapy on Friday or Friday next week. Script provided. Diet Recommendations Home Diet: no limitations, resume previous diet Procedures Procedures Performed: Left Shoulder Scope, Debridement, Open Removal of Deep Hardware, Irrigation /Debridement, Insertion of Stimulan Beads Pending Studies Studies pending at discharge: no Medical Emergencies . Who to Call and When: Medical Emergencies: If at any time you feel your situation is an emergency, please call 911 immediately. . Non-Emergent Contact Non-Emergency issues call your: Surgeon Call Non-Emergent contact if: temperature is above 101, your pain is not controlled, your pain is concerning you, wound has increased drainage, you have any medication questions . . "Provider Documentation" section prepared by Tressa Rhoades. . [place] Drug Monitoring Program Search Results: patient reviewed within database, no issues identified
--- NOTE | 2016-08-29 11:56 | [facility] Operative Report ---
Operative Report Operative Date August 29, 2016. Pre-Operative Diagnosis Left Shoulder Infection Post-Operative Diagnosis Left shoulder infection; s/p Left RTC repair Procedure(s) Performed Left shoulder arthroscopy, open hardware removal, debridement, irrigation, insertion of antibiotic beads Surgeon Dr. Miky Hodges Telemetry Rn Surgeon(s) Tressa Coon PAC Estimated Blood Loss 10 cc Findings retained hardware Specimens A. Retained Hardware B culture x 3 Drains 0 Anesthesia LMA with block Complication(s) None Disposition Recovery Room / PACU (stable) Indications Patient has been followed in our office, with persistent left shoulder pain and stiffness. S/p RTC repair and manipulation with continued pain left shoulder. Cultures were taken and he was found to have an infection in his left shoulder. He was given a PICC line and has been receiving IV antibiotics for the last 6 weeks with minimal improvement. MRI obtained, found to have fluid around suture anchors, surgery recommended. Risks/complications discussed, informed consent obtained. Description of Procedure Patient was taken to the operating room, given general anesthesia, given IV Ancef for surgical prophylaxis. Time out performed, prepped and draped in routine sterile fashion. I was present the entire case, please see Dr. Hodges's operative report for further detail. Patient was awakened and taken to the recovery room in stable condition. I attest to the content of the Intraoperative Record and any orders documented therein. Any exceptions are noted below.
[2016-08-29 12:37] VITALS: TEMP 37
--- NOTE | 2016-08-29 13:06 | Anesthesia Progress Nt - [facility] ---
Anesthesia Post Op Note Date & Time August 29, 2016 at 13:06 Vital Signs Pain Intensity: 0 Vital Signs Past 12 Hours Date Time Temp Pulse Resp B/P Pulse Ox O2 Delivery O2 Flow Rate FiO2 08/29/16 12:37 37 92 16 138/73 94 Room Air 08/29/16 12:31 37 150/80 08/29/16 12:30 92 18 08/29/16 12:30 89 18 93 08/29/16 12:26 128/79 08/29/16 12:25 100 15 08/29/16 12:25 91 15 91 08/29/16 12:21 144/70 08/29/16 12:20 88 20 08/29/16 12:20 87 20 91 08/29/16 12:16 142/73 08/29/16 12:15 87 18 93 08/29/16 12:15 90 18 08/29/16 12:11 148/74 08/29/16 12:10 88 17 08/29/16 12:10 86 17 98 08/29/16 12:06 134/67 08/29/16 12:05 88 17 08/29/16 12:05 82 17 98 08/29/16 12:01 124/67 08/29/16 12:00 86 18 98 08/29/16 12:00 84 18 08/29/16 11:56 120/67 08/29/16 11:55 84 19 08/29/16 11:55 83 19 127/73 98 08/29/16 11:52 36.8 88 20 127/73 98 Mask 6 08/29/16 11:51 145/ 08/29/16 11:50 79 08/29/16 11:50 79 97 08/29/16 07:49 121/74 08/29/16 07:47 80 08/29/16 07:47 80 94 08/29/16 07:42 72 21 99 08/29/16 07:42 72 21 08/29/16 07:41 146/78 08/29/16 07:39 67 15 100 08/29/16 07:39 70 15 08/29/16 07:36 148/80 08/29/16 07:35 162/81 08/29/16 07:31 157/85 08/29/16 07:29 53 97 08/29/16 07:29 53 08/29/16 07:26 134/81 08/29/16 07:24 63 95 08/29/16 07:24 60 08/29/16 07:20 138/77 08/29/16 07:19 56 98 08/29/16 07:19 56 08/29/16 07:14 61 08/29/16 07:09 73 08/29/16 07:04 56 08/29/16 06:59 58 08/29/16 06:42 107/69 08/29/16 06:29 36.8 64 16 107/69 97 Room Air Notes Mental Status: alert / awake / arousable, participated in evaluation Pt Amnestic to Procedure: Yes Nausea / Vomiting: adequately controlled Pain: adequately controlled Airway Patency, RR, SpO2: stable & adequate BP & HR: stable & adequate Hydration State: stable & adequate Anesthetic Complications: no major complications apparent
[2016-08-29 13:20] VITALS: BP 142/82; PULSE 88; O2SAT 95
--- NOTE | 2016-08-29 16:11 | OPERATIVE REPORT ---
DATE OF OPERATION: 08/29/2016 PREOPERATIVE DIAGNOSIS: Propionibacterium acnes infection of the left shoulder status post arthroscopic rotator cuff repair. POSTOPERATIVE DIAGNOSIS: Same. SURGEON: Dr. Hodges. INTERNATIONAL TRADE SPECIALIST: Dr. Fabian Sims, fellow. SECOND INTERNATIONAL TRADE SPECIALIST: Cindi Rhoades. ANESTHESIA: Laryngeal mask with interscalene block. PROCEDURE: Left shoulder arthroscopy with debridement, open removal of deep hardware, culture, implantation of antibiotic impregnated Stimulan beads. BRIEF HISTORY: The patient is a 41-year-old male who is almost 1 year status post an arthroscopic repair of his left shoulder rotator cuff. His postoperative course was complicated by stiffness. The workup for that demonstrated abnormal sed rate and C-reactive protein. He underwent manipulation and arthroscopic lysis of adhesions with culture. The culture grew out Propionibacterium acnes. The hardware consisting of 3 suture anchors was left in place at that time and the rotator cuff was noted to be intact. He underwent an approximate 8-week course of intravenous antibiotics. He had issues with diarrhea. His range of motion improved nearly to normal except for slight loss of external rotation and his pain improved, but his inflammatory markers remained elevated. A repeat MRI showed some fluid around the anchors possibly related to biofilm production. His rotator cuff was intact. He is taken back today for shoulder arthroscopy and debridement, reevaluation of his rotator cuff, removal of the implants and implantation of antibiotic impregnated Stimulan beads. PROCEDURE IN DETAIL: Informed consent was obtained. The patient identified as Helder Melendez. He identified the operative site as the left shoulder. I marked it with my initials. A preop surgical time out was performed. A preop dose of IV antibiotics were given. He had been off of Inanz for 1 week preoperatively, he had the PICC line in place. He was taken to the operating room, positioned supine on the OR table. The Trimano arm queen and Mccammon body positioner were utilized. The anesthetic was administered. He was examined under anesthesia. He had grade 2 anterior, posterior laxity equal bilaterally with a grade 1 sulcus sign equal bilaterally. His range of motion was full and equal to the opposite side except for external rotation of 30 degrees on the left compared to 45 on the right. His elevation and rotatory movement at 90 degrees of abduction were equal to the opposite side. He was positioned beach chair. The neck was held in neutral alignment. The heels were padded, knees were flexed, the torso was secured to the table. The left upper extremity was prepped and draped in the usual sterile fashion. Prior to that 1% lidocaine with epinephrine was injected into the portal sites and subacromial space. DVT prophylaxis with impulse foot pumps and postoperatively with early mobility. There was no undue pressure on his opposite foot. Prior incisions were utilized when able and new incisions were made where necessary. A posterior soft spot viewing portal was established followed by an anterior mid glenoid working portal. There were some adhesions in the anterior aspect of the shoulder joint rotator interval area which were debrided. I re-released his anterior capsule from the level of the subscap down to the inferior margin of the glenoid and this made his external rotation with the arm to the side symmetric. The biceps tendon was normal, the articular cartilage of the glenoid was normal. There was minor fraying around the margin of the glenoid. The scope was placed anterior to visualize the posterior structures. There was evidence of healed prior arthroscopic capsular release throughout. The articular surface of the humeral head was normal throughout. There was some fibrillation posteriorly. The bare area was noted. There was a normal posterior rotator cuff insertion. The rotator cuff repair was completely intact. The area where the suture anchors was present sutures were noted to be present. There was one area on the superior and posterior aspect of the head, 4-5 mm wide and 15 mm long where there was an area of missing cartilage. This was noted on prior arthroscopic surgery. The remainder of the cartilage showed no significant issues. There were no loose bodies. The scope was placed in the subacromial space. There were adhesions noted and these were debrided, particularly in the anterior aspect of the shoulder and posteriorly. The lateral gutters were recreated. Prior to going into the subacromial space, I used a spinal needle on PDS suture to percutaneously tag where the location of the suture anchors was believed to be based upon intra-articular location of the stitches. The PDS sutures were identified and oriented in relationship to the skin for incision. The rotator cuff was intact on the bursal and articular surface. I then went ahead and removed the arthroscopic instruments, I made a 5 cm incision over the anterolateral aspect of the acromion. Full thickness flaps were elevated down to the deltoid fascia. The deltoid was then split in line with its fibers off the anterior margin of the acromion, the deltoid was not detached. A self-retaining retractor was inserted. Bursitis was removed. Compared to prior surgery there was much more normal appearance without any notable granulation tissue throughout the shoulder and minimal tenosynovitis. The lateral anchor was identified which was a SwiveLock. The screwdriver was engaged and it was easily removed. This brought out 4 sutures which I then utilized to trace back to the suture anchors. I started out anteriorly and traced these anchors back using blunt dissection to where they went into the rotator cuff and oriented this in comparison of my PDS sutures. I then went ahead and made a longitudinal incision anteriorly, splitting the supraspinatus, but not detaching it. I then dissected the sutures down to the level of the anchor. I used curettes and rongeur to debride the area around the anchor to clearly see it and then removed the FiberWire sutures. The screwdriver was engaged and the anchor was easily removed. The anterior anchor was loose. The other anchors were not. The rotator cuff around this area was completely healed. The rotator cuff was not detached, but was split. The same procedure was performed posteriorly where the sutures were utilized to identify where the anchor was, and a longitudinal split which was about 1.5 cm posterior to the prior split in line with fibers of the rotator cuff was made. Using cautery, curette and rongeur I was able to trace the stitches out down to the level of the anchor, all of the FiberWire sutures were completely removed. When I inserted the initial anchor for the original surgery, I used a BioComposite anchor which broke when I inserted it. There were several small pieces of this BioComposite anchor located anterolaterally, which I removed with a curette and rongeur. The anchor was then engaged and completely removed. There was some fibrillation of the posterior flap but otherwise the rotator cuff in this area posteriorly was also completely healed. Irrigation with sterile saline was performed, irrigation with Betadine lavage was performed. All of the holes were curettaged with a curette and thoroughly irrigated. I then mixed Stimulan beads 10 mL of powder with 240 mg of gentamicin and 1 gram of vancomycin to make small 2 mm beads. Once the beads had set, approximately 8-10 beads were placed into each of the holes, impacted with a switching stick down into the bone. The rotator cuff was then reapproximated using 0 PDS sutures x2 for each of these splits, this resulted in complete repair of the rotator cuff without any detachment. The margin, the area that was slightly detached was right where the suture anchor went in, which was right at the articular cartilage margin. All of the anchors were completely removed as were all the sutures including the tip of the SwiveLock anchor. Irrigation was then again performed. The split at the deltoid was closed with running #1 Vicryl in a full thickness fashion proximally but not distally. The deltoid was split for a distance of 4 cm and self-retaining retractor was utilized. Skin was closed with 3-0 Vicryl and 4-0 nylon sutures on the skin. The portals were closed with 4-0 nylon. The arm was cleaned with wet and dry sponges. A soft sterile dressing was applied and an ABD in the armpit. The patient was placed into an UltraSling. He was awakened from anesthesia without difficulty and taken to the recovery room in stable condition. The removed hardware was sent for specimen. I did obtain 3 cultures, one for each of the suture anchor sites. These were labeled for aerobic and anaerobic cultures and Gram stain. They were labeled as periprosthetic cultures to be held for 2 weeks to identify Propionibacterium acnes. There were instructions to not combine the cultures. Counts were correct at the end of case. Blood loss was minimal. At the conclusion of the operation, I spoke to patient's and informed her of my findings. Postoperative instructions were given. He will be given a dose of Ivanz prior to discharge, will continue that at home starting tomorrow. He can do active movement of the hand, wrist, and elbow. We are going to do passive range of motion of the shoulder to protect the division of the rotator cuff for a period of 4-6 weeks. He will be into physical therapy within a few days to work on his range of motion in a passive fashion. The patient had a localized area of discomfort which was over the anterolateral biceps near the end of the deltopectoral interval, this area was not readily visualized with the surgical procedure. I did debride scar tissue in the front of the shoulder in hopes that this may help dissipate that. The biceps tendon was normal. Subscap was normal. I attest to the content of the Intraoperative Record and any orders documented therein. Any exceptions are noted below. CANDYD
== END | disposition home or self-care (01) ==
LOC: X.SURG 06:04
PROVIDERS: ATTEND Physical Medicine & Rehabilitation Sports Medicine
DX: T84.611A Infection and inflammatory reaction due to internal fixation device of left humerus, initial encounter (principal); B96.89 Other specified bacterial agents as the cause of diseases classified elsewhere; Z98.890 Other specified postprocedural states; F17.210 Nicotine dependence, cigarettes, uncomplicated; X58.XXXA Exposure to other specified factors, initial encounter

== ENCOUNTER → 2016-09-03 | Outpatient (CLI) | payer OTHER ==
[~2016-09-03] MED LIST changes: -ARTIFICIAL TEARS OP OINT 3.5 GM TUBE ONE; -ATROPINE SULFATE 0.1 MG/ML 5ML SYR IV PRN; -BUPIVACAINE/EPINEPHRINE 0.25% 1:200,000 30 ML VIAL ONE; -CEFAZOLIN 1000MG/55 ML D5W IV SCH; -DEXAMETHASONE SOD INJ 4 MG/ML VIAL ONE; -ERTAPENEM IV 1 GM in SODIUM CHLOR 0.9% AD-VAN 50ML IV SCH; -EpHEDrine SULFATE INJ 50 MG/ML AMP IV PRN; -EpINEphrine INJ 1MG/ML AMP 1 MG/ML AMP ONE; -FENTANYL CITRATE INJ 50 MCG/1 ML 2 ML VIAL IV PRN; -FENTANYL CITRATE INJ 50 MCG/1 ML 2 ML VIAL ONE; -GENTAMICIN SULFATE 40 MG/ML 2 ML VIAL ONE; -GENTAMICIN SULFATE 40 MG/ML VIAL IV SCH; -HYDROmorphone INJ 1 MG/ML SYR ONE; -LACTATED RINGER'S 1000ML 1,000 ML IV SCH; -LIDOCAINE HCL 2% 2 ML VIAL (20MG/ML) ONE; -LIDOCAINE/EPINEPHRINE 1% INJ 50 ML VIAL ONE; -MIDAZOLAM HCL 1 MG/ML 2ML VIAL ONE; -MoRPHine SULFATE 2 MG/ML CARP IV PRN; -MoRPHine SULFATE 4 MG/ML 1 ML CARP\\VIAL IV PRN; -ONDANSETRON INJ 2 MG/ML 2 ML VIAL IV PRN; -ONDANSETRON INJ 2 MG/ML 2 ML VIAL ONE; -OXYCODONE HCL IR 5 MG TAB (IMMEDIATE RELEASE) PO PRN; -POVIDONE-IODINE OP SOLN 30 ML BTL ONE; -PROPOFOL IV EMULSION 10 MG/ML 20 ML VIAL IV ONE; -ROPIVACAINE 0.5% 5 MG/ML 30 ML VIAL ONE; -SODIUM CHLORIDE 0.9% 1000ML 1,000 ML IV SCH; -VANCOMYCIN HCL 1000MG/20ML VIAL ONE
[2016-09-03 13:46] LABS: BASO % 0.5 %; BASO ABS # 0.05 K/uL (0-0.2); COMPLETE YES; EOS % 3.8 %; HEMATOCRIT 39.5 % (42-52); IG% 0.2 %; LYMPH % 17.2 %; LYMPH ABS # 1.63 K/uL (1.2-3.4); MEAN CELL VOLUME 92.1 fL (80-100); MEAN CORPUSCULAR HEMOGLOBIN 30.8 pg (25-34); MEAN CORPUSCULAR HGB CONC 33.4 g/dl (32-36); MEAN PLATELET VOLUME 9.4 fL (7.4-10.4); MONO % 7.7 %; NEUT % 70.6 %; PLATELET COUNT 321 K/uL (130-400); RED BLOOD COUNT 4.29 M/uL (4.7-6.1); WHITE BLOOD COUNT 9.46 K/uL (4.8-10.8)
[2016-09-03 14:25] LABS: ALB/GLOB RATIO 0.9 (0.9-2); ALT/SGPT 25 U/L (12-78); AST/SGOT 14 U/L (15-37); BLOOD UREA NITROGEN 9 mg/dl (7-18); BUN/CREATININE RATIO 9.2 (10-20); C-REACTIVE PROTEIN 3.23 mg/dl (0-0.29); CARBON DIOXIDE 24 mmol/L (21-32); CHLORIDE 106 mmol/L (98-107); CREATININE 0.98 mg/dl (0.60-1.40); GLUCOSE 92 mg/dl (70-99); SODIUM 140 mmol/L (136-145)
[2016-09-03 14:26] LABS: ALKALINE PHOSPHATASE 96 U/L (45-117)
== END | disposition home or self-care (01) ==
LOC: C.LABSPEC 12:14
PROVIDERS: ATTEND Internal Medicine Infectious Disease
DX: A49.9 Bacterial infection, unspecified (principal)

== ENCOUNTER → 2016-09-10 | Outpatient (CLI) | payer OTHER ==
[2016-09-10 12:41] LABS: BASO % 0.8 %; BASO ABS # 0.08 K/uL (0-0.2); COMPLETE YES; EOS % 3.2 %; HEMATOCRIT 41.3 % (42-52); IG% 0.6 %; LYMPH % 20.9 %; LYMPH ABS # 2.09 K/uL (1.2-3.4); MEAN CELL VOLUME 92.2 fL (80-100); MEAN CORPUSCULAR HEMOGLOBIN 29.9 pg (25-34); MEAN CORPUSCULAR HGB CONC 32.4 g/dl (32-36); MEAN PLATELET VOLUME 9.2 fL (7.4-10.4); MONO % 6.6 %; NEUT % 67.9 %; PLATELET COUNT 328 K/uL (130-400); RED BLOOD COUNT 4.48 M/uL (4.7-6.1); WHITE BLOOD COUNT 9.98 K/uL (4.8-10.8)
[2016-09-10 12:59] LABS: ALT/SGPT 32 U/L (12-78); AST/SGOT 17 U/L (15-37); BLOOD UREA NITROGEN 5 mg/dl (7-18); BUN/CREATININE RATIO 5.7 (10-20); C-REACTIVE PROTEIN 0.73 mg/dl (0-0.29); CARBON DIOXIDE 26 mmol/L (21-32); CHLORIDE 107 mmol/L (98-107); CREATININE 0.94 mg/dl (0.60-1.40); GLUCOSE 97 mg/dl (70-99); POTASSIUM 3.9 mmol/L (3.5-5.1); SODIUM 141 mmol/L (136-145)
[2016-09-10 13:01] LABS: ALB/GLOB RATIO 0.9 (0.9-2); ALKALINE PHOSPHATASE 100 U/L (45-117)
[2016-09-10 13:07] LABS: CALCIUM 9.3 mg/dl (8.5-10.1)
== END | disposition home or self-care (01) ==
LOC: C.LABSPEC 12:25
PROVIDERS: ATTEND Internal Medicine Infectious Disease
DX: A49.9 Bacterial infection, unspecified (principal)

== ENCOUNTER → 2016-09-11 | Outpatient (CLI) | payer OTHER | END | disposition home or self-care (01) | LOC: C.RDSM 13:11 | PROVIDERS: ATTEND Physical Medicine & Rehabilitation Sports Medicine | DX: S46.012D Strain of muscle(s) and tendon(s) of the rotator cuff of left shoulder, subsequent encounter (principal); X58.XXXD Exposure to other specified factors, subsequent encounter ==

== ENCOUNTER → 2016-09-17 | Outpatient (CLI) | payer OTHER ==
[2016-09-17 12:48] LABS: BASO % 0.6 %; BASO ABS # 0.06 K/uL (0-0.2); COMPLETE YES; EOS % 3.5 %; HEMATOCRIT 40.2 % (42-52); IG% 0.2 %; LYMPH % 17.9 %; LYMPH ABS # 1.75 K/uL (1.2-3.4); MEAN CELL VOLUME 92.4 fL (80-100); MEAN CORPUSCULAR HEMOGLOBIN 31.7 pg (25-34); MEAN CORPUSCULAR HGB CONC 34.3 g/dl (32-36); MEAN PLATELET VOLUME 9.6 fL (7.4-10.4); MONO % 8.3 %; NEUT % 69.5 %; PLATELET COUNT 299 K/uL (130-400); RED BLOOD COUNT 4.35 M/uL (4.7-6.1); WHITE BLOOD COUNT 9.77 K/uL (4.8-10.8)
[2016-09-17 13:24] LABS: ALT/SGPT 24 U/L (12-78); BLOOD UREA NITROGEN 6 mg/dl (7-18); BUN/CREATININE RATIO 5.5 (10-20); C-REACTIVE PROTEIN 0.59 mg/dl (0-0.29); CARBON DIOXIDE 21 mmol/L (21-32); CHLORIDE 108 mmol/L (98-107); GLUCOSE 80 mg/dl (70-99); POTASSIUM 4.1 mmol/L (3.5-5.1); SODIUM 140 mmol/L (136-145)
[2016-09-17 13:27] LABS: ALKALINE PHOSPHATASE 86 U/L (45-117); AST/SGOT 18 U/L (15-37)
[2016-09-17 13:33] LABS: CALCIUM 9.5 mg/dl (8.5-10.1)
== END | disposition home or self-care (01) ==
LOC: C.LABSPEC 12:34
PROVIDERS: ATTEND Internal Medicine Infectious Disease
DX: A49.9 Bacterial infection, unspecified (principal)

== ENCOUNTER → 2016-09-24 | Outpatient (CLI) | payer OTHER ==
[2016-09-24 13:15] LABS: BASO % 0.7 %; BASO ABS # 0.05 K/uL (0-0.2); COMPLETE YES; EOS % 5.7 %; IG% 0.1 %; LYMPH % 22.3 %; LYMPH ABS # 1.57 K/uL (1.2-3.4); MEAN CELL VOLUME 92.6 fL (80-100); MEAN CORPUSCULAR HGB CONC 33.5 g/dl (32-36); MEAN PLATELET VOLUME 9.4 fL (7.4-10.4); MONO % 7.8 %; NEUT % 63.4 %; PLATELET COUNT 215 K/uL (130-400); RED BLOOD COUNT 4.32 M/uL (4.7-6.1); WHITE BLOOD COUNT 7.03 K/uL (4.8-10.8)
[2016-09-24 14:02] LABS: ALKALINE PHOSPHATASE 80 U/L (45-117); ALT/SGPT 25 U/L (12-78); BLOOD UREA NITROGEN 7 mg/dl (7-18); BUN/CREATININE RATIO 6.1 (10-20); C-REACTIVE PROTEIN 0.79 mg/dl (0-0.29); CARBON DIOXIDE 24 mmol/L (21-32); CHLORIDE 106 mmol/L (98-107); GLUCOSE 90 mg/dl (70-99); POTASSIUM 4.1 mmol/L (3.5-5.1); SODIUM 139 mmol/L (136-145)
[2016-09-24 14:04] LABS: AST/SGOT 13 U/L (15-37)
== END | disposition home or self-care (01) ==
LOC: C.LABSPEC 12:39
PROVIDERS: ATTEND Internal Medicine Infectious Disease
DX: A49.9 Bacterial infection, unspecified (principal)

== ENCOUNTER → 2016-10-01 | Outpatient (CLI) | payer OTHER ==
[~2016-10-01] MED LIST changes: -IBUP-1459 PO; -OXYC1TAB3 PO
[2016-10-01 10:59] LABS: BASO % 0.4 %; BASO ABS # 0.05 K/uL (0-0.2); COMPLETE YES; EOS % 2.9 %; HEMATOCRIT 39.5 % (42-52); IG% 0.4 %; LYMPH % 14.2 %; LYMPH ABS # 1.59 K/uL (1.2-3.4); MEAN CELL VOLUME 90.6 fL (80-100); MEAN CORPUSCULAR HEMOGLOBIN 31.2 pg (25-34); MEAN CORPUSCULAR HGB CONC 34.4 g/dl (32-36); MEAN PLATELET VOLUME 9.6 fL (7.4-10.4); MONO % 9.5 %; NEUT % 72.6 %; PLATELET COUNT 182 K/uL (130-400); RED BLOOD COUNT 4.36 M/uL (4.7-6.1); WHITE BLOOD COUNT 11.21 K/uL (4.8-10.8)
[2016-10-01 11:20] LABS: ALKALINE PHOSPHATASE 90 U/L (45-117); ALT/SGPT 23 U/L (12-78); AST/SGOT 18 U/L (15-37); BLOOD UREA NITROGEN 13 mg/dl (7-18); BUN/CREATININE RATIO 13.6 (10-20); C-REACTIVE PROTEIN 1.67 mg/dl (0-0.29); CARBON DIOXIDE 25 mmol/L (21-32); CHLORIDE 106 mmol/L (98-107); CREATININE 0.99 mg/dl (0.60-1.40); GLUCOSE 83 mg/dl (70-99); SODIUM 139 mmol/L (136-145)
== END | disposition home or self-care (01) ==
LOC: C.LABSPEC 09:41
PROVIDERS: ATTEND Internal Medicine Infectious Disease
DX: A49.9 Bacterial infection, unspecified (principal)

== ENCOUNTER → 2016-10-08 | Outpatient (CLI) | payer OTHER ==
[2016-10-08 09:22] LABS: BASO % 0.6 %; BASO ABS # 0.05 K/uL (0-0.2); COMPLETE YES; EOS % 3.5 %; HEMATOCRIT 39.8 % (42-52); IG% 0.2 %; LYMPH % 20.1 %; LYMPH ABS # 1.65 K/uL (1.2-3.4); MEAN CELL VOLUME 91.3 fL (80-100); MEAN CORPUSCULAR HGB CONC 33.9 g/dl (32-36); MEAN PLATELET VOLUME 9.2 fL (7.4-10.4); MONO % 8.1 %; NEUT % 67.5 %; PLATELET COUNT 252 K/uL (130-400); RED BLOOD COUNT 4.36 M/uL (4.7-6.1); WHITE BLOOD COUNT 8.19 K/uL (4.8-10.8)
[2016-10-08 09:32] LABS: ALT/SGPT 23 U/L (12-78); BLOOD UREA NITROGEN 8 mg/dl (7-18); BUN/CREATININE RATIO 7.5 (10-20); C-REACTIVE PROTEIN 0.71 mg/dl (0-0.29); CALCIUM 9.1 mg/dl (8.5-10.1); CARBON DIOXIDE 24 mmol/L (21-32); CHLORIDE 106 mmol/L (98-107); GLUCOSE 121 mg/dl (70-99); POTASSIUM 4.1 mmol/L (3.5-5.1); SODIUM 137 mmol/L (136-145)
[2016-10-08 09:35] LABS: ALKALINE PHOSPHATASE 91 U/L (45-117); AST/SGOT 16 U/L (15-37)
== END | disposition home or self-care (01) ==
LOC: C.LABSPEC 08:18
PROVIDERS: ATTEND Internal Medicine Infectious Disease
DX: A49.9 Bacterial infection, unspecified (principal)

== ENCOUNTER → 2016-10-15 | Outpatient (CLI) | payer OTHER ==
[2016-10-15 14:45] LABS: BASO % 0.6 %; BASO ABS # 0.06 K/uL (0-0.2); COMPLETE YES; EOS % 3.2 %; HEMATOCRIT 40.7 % (42-52); IG% 0.3 %; LYMPH ABS # 1.58 K/uL (1.2-3.4); MEAN CELL VOLUME 92.5 fL (80-100); MEAN CORPUSCULAR HEMOGLOBIN 31.1 pg (25-34); MEAN CORPUSCULAR HGB CONC 33.7 g/dl (32-36); MEAN PLATELET VOLUME 9.2 fL (7.4-10.4); MONO % 9.4 %; NEUT % 69.5 %; PLATELET COUNT 276 K/uL (130-400)
[2016-10-15 15:08] LABS: ALT/SGPT 25 U/L (12-78); AST/SGOT 17 U/L (15-37); BLOOD UREA NITROGEN 13 mg/dl (7-18); BUN/CREATININE RATIO 13.8 (10-20); CALCIUM 8.9 mg/dl (8.5-10.1); CARBON DIOXIDE 25 mmol/L (21-32); CHLORIDE 105 mmol/L (98-107); CREATININE 0.96 mg/dl (0.60-1.40); GLUCOSE 99 mg/dl (70-99); POTASSIUM 4.2 mmol/L (3.5-5.1); SODIUM 137 mmol/L (136-145)
[2016-10-15 15:11] LABS: ALKALINE PHOSPHATASE 95 U/L (45-117); C-REACTIVE PROTEIN 0.84 mg/dl (0-0.29)
== END | disposition home or self-care (01) ==
LOC: C.LABSPEC 12:36
PROVIDERS: ATTEND Internal Medicine Infectious Disease
DX: A49.9 Bacterial infection, unspecified (principal)

== ENCOUNTER → 2016-10-18 | Outpatient (CLI) | payer OTHER | END | disposition home or self-care (01) | LOC: C.RDSM 10:10 | PROVIDERS: ATTEND Physical Medicine & Rehabilitation Sports Medicine | DX: M54.6 Pain in thoracic spine (principal) ==

== ENCOUNTER → 2016-11-04 | Outpatient (CLI) | payer OTHER ==
[2016-11-04 17:54] LABS: BASO % 0.3 %; BASO ABS # 0.03 K/uL (0-0.2); COMPLETE YES; EOS % 1.4 %; HEMATOCRIT 39.9 % (42-52); IG% 0.3 %; LYMPH % 14.4 %; LYMPH ABS # 1.63 K/uL (1.2-3.4); MEAN CORPUSCULAR HEMOGLOBIN 32.2 pg (25-34); MEAN CORPUSCULAR HGB CONC 34.6 g/dl (32-36); MEAN PLATELET VOLUME 9.6 fL (7.4-10.4); MONO % 6.7 %; NEUT % 76.9 %; PLATELET COUNT 258 K/uL (130-400); RED BLOOD COUNT 4.29 M/uL (4.7-6.1)
[2016-11-04 18:18] LABS: ALT/SGPT 28 U/L (12-78); AST/SGOT 16 U/L (15-37); BLOOD UREA NITROGEN 7 mg/dl (7-18); CARBON DIOXIDE 25 mmol/L (21-32); CHLORIDE 108 mmol/L (98-107); GLUCOSE 154 mg/dl (70-99); POTASSIUM 4.1 mmol/L (3.5-5.1); SODIUM 140 mmol/L (136-145)
[2016-11-04 18:20] LABS: ALB/GLOB RATIO 0.9 (0.9-2); ALKALINE PHOSPHATASE 96 U/L (45-117)
== END | disposition home or self-care (01) ==
LOC: C.LABBFT 12:19
PROVIDERS: ATTEND Internal Medicine Infectious Disease
DX: M00.812 Arthritis due to other bacteria, left shoulder (principal); A49.8 Other bacterial infections of unspecified site

== ENCOUNTER → 2016-12-11 | Outpatient (CLI) | payer OTHER ==
[2016-12-11 16:53] LABS: BASO % 0.4 %; BASO ABS # 0.04 K/uL (0-0.2); COMPLETE YES; EOS % 2.3 %; HEMATOCRIT 42.2 % (42-52); IG% 0.2 %; LYMPH % 18.9 %; LYMPH ABS # 1.88 K/uL (1.2-3.4); MEAN CORPUSCULAR HEMOGLOBIN 31.6 pg (25-34); MEAN CORPUSCULAR HGB CONC 33.6 g/dl (32-36); MEAN PLATELET VOLUME 9.8 fL (7.4-10.4); MONO % 8.3 %; NEUT % 69.9 %; PLATELET COUNT 255 K/uL (130-400); RED BLOOD COUNT 4.49 M/uL (4.7-6.1); WHITE BLOOD COUNT 9.97 K/uL (4.8-10.8)
[2016-12-11 17:00] LABS: ALT/SGPT 27 U/L (12-78); AST/SGOT 19 U/L (15-37); BLOOD UREA NITROGEN 11 mg/dl (7-18); BUN/CREATININE RATIO 8.8 (10-20); C-REACTIVE PROTEIN 0.96 mg/dl (0-0.29); CALCIUM 9.1 mg/dl (8.5-10.1); CARBON DIOXIDE 26 mmol/L (21-32); CHLORIDE 106 mmol/L (98-107); GLUCOSE 91 mg/dl (70-99); POTASSIUM 3.9 mmol/L (3.5-5.1); SODIUM 139 mmol/L (136-145)
[2016-12-11 17:03] LABS: ALB/GLOB RATIO 1.2 (0.9-2); ALKALINE PHOSPHATASE 96 U/L (45-117)
== END | disposition home or self-care (01) ==
LOC: C.LABBFT 11:29
PROVIDERS: ATTEND Internal Medicine Infectious Disease
DX: M00.812 Arthritis due to other bacteria, left shoulder (principal)

== ENCOUNTER → 2017-01-02 | Outpatient (CLI) | payer OTHER ==
[2017-01-02 12:10] LABS: BASO % 0.9 %; BASO ABS # 0.07 K/uL (0-0.2); COMPLETE YES; EOS % 2.9 %; IG% 0.3 %; LYMPH % 29.5 %; LYMPH ABS # 2.32 K/uL (1.2-3.4); MEAN CELL VOLUME 91.9 fL (80-100); MEAN CORPUSCULAR HEMOGLOBIN 31.1 pg (25-34); MEAN CORPUSCULAR HGB CONC 33.9 g/dl (32-36); MEAN PLATELET VOLUME 9.4 fL (7.4-10.4); NEUT % 57.4 %; PLATELET COUNT 243 K/uL (130-400); RED BLOOD COUNT 4.79 M/uL (4.7-6.1); WHITE BLOOD COUNT 7.87 K/uL (4.8-10.8)
[2017-01-02 12:20] LABS: ALT/SGPT 29 U/L (12-78); BLOOD UREA NITROGEN 12 mg/dl (7-18); BUN/CREATININE RATIO 10.6 (10-20); C-REACTIVE PROTEIN 0.86 mg/dl (0-0.29); CALCIUM 9.5 mg/dl (8.5-10.1); CARBON DIOXIDE 23 mmol/L (21-32); CHLORIDE 105 mmol/L (98-107); GLUCOSE 85 mg/dl (70-99); POTASSIUM 4.4 mmol/L (3.5-5.1); SODIUM 136 mmol/L (136-145)
[2017-01-02 12:23] LABS: ALB/GLOB RATIO 1.1 (0.9-2); ALKALINE PHOSPHATASE 95 U/L (45-117); AST/SGOT 17 U/L (15-37)
== END | disposition home or self-care (01) ==
LOC: C.LABBFT 10:59
PROVIDERS: ATTEND Internal Medicine Infectious Disease
DX: M00.812 Arthritis due to other bacteria, left shoulder (principal)

== ENCOUNTER → 2017-02-13 | Day surgery (SDC) | payer OTHER ==
[2017-01-27 12:09] VITALS: Ht 175.3 cm; Wt 72.7 kg
[~2017-02-13] VITALS: Ht 175.3 cm; Wt 72.7 kg
[~2017-02-13] MED LIST changes: +ATROPINE SULFATE 0.1 MG/ML 5ML SYR IV PRN; +CEFAZOLIN 2000MG IV PUSH 10 ML IV SCH; +DEXAMETHASONE SOD INJ 4 MG/ML VIAL IV PRN; -DIPH-416 PO; -ERTA1INJ IV; +EpHEDrine SULFATE INJ 50 MG/ML AMP IV PRN; +EpINEphrine INJ 1MG/ML AMP 1 MG/ML AMP ONE; +FENTANYL CITRATE INJ 50 MCG/1 ML 2 ML VIAL IV PRN; +FENTANYL CITRATE INJ 50 MCG/1 ML 2 ML VIAL ONE; +IBUP-1459 PO; +KETOROLAC TROMETHAMINE 30 MG/ML VIAL IV. PRN; +LABETALOL HCL IV 5 MG/ML 20ML IV PRN; +LACTATED RINGER'S 1000ML 1,000 ML IV SCH; +LIDOCAINE/EPINEPHRINE 1% INJ 50 ML VIAL ONE; +METOCLOPRAMIDE HCL INJ 5 MG/ML 2 ML VIAL IV PRN; +MIDAZOLAM HCL 1 MG/ML 2ML VIAL ONE; +MoRPHine SULFATE 10 MG/ML CARP/VIAL IV PRN; +MoRPHine SULFATE 2 MG/ML CARP IV PRN; +MoRPHine SULFATE 4 MG/ML 1 ML CARP\\VIAL IV PRN; +ONDANSETRON INJ 2 MG/ML 2 ML VIAL IV PRN; +ONDANSETRON INJ 2 MG/ML 2 ML VIAL ONE; +OXYC1TAB3 PO; +OXYCODONE HCL IR 5 MG TAB (IMMEDIATE RELEASE) PO PRN; +PHENYLEPHRINE 100MCG/ML 5ML SYR IV PRN; +PROPOFOL IV EMULSION 10 MG/ML 20 ML VIAL IV ONE; +ROCURONIUM BROMIDE 10 MG/ML 5 ML VIAL IV ONE; +ROPIVACAINE 0.5% 5 MG/ML 30 ML VIAL ONE; -RXC5 PO; +SODIUM CHLORIDE 0.9% 1000ML 1,000 ML IV SCH; +SUCCINYLCHOLINE CHLORIDE 20 MG/ML 10 ML VIAL IV ONE
--- NOTE | 2017-02-13 10:50 | Discharge Instructions-SurgCtr ---
Discharge Instructions Date of Service Feb 13, 2017. Visit Reason for Visit: S/P Left Shoulder Rotator Cuff Repair, Po Infectio Discharge Discharge Diagnosis / Problem: status post left shoulder rotator cuff repair, postoperative infection Discharge Goals Goal(s): Decrease discomfort, Improve function, Increase independence Activity Recommendations Activity Limitations: per Instructions/Follow-up section Weightbearing Status: Left weightbearing (as tolerated) Anesthesia . Post Anesthesia Instructions: If you have had General Anesthesia or IV Sedation: * Do not drive today. * Resume driving when surgeon permits. * Do not make important decisions or sign legal documents today. * Call surgeon for: 1. Temperature elevations greater than 101 degrees F. 2. Uncontrollable pain. 3. Excessive bleeding. 4. Persistent nausea and vomiting. 5. Medication intolerance (nausea, vomiting or rash). * For nausea and vomiting use only clear liquids such as: tea, soda, bouillon until nausea subsides, then gradually increase diet as tolerated. * If you have any concerns or questions, call your surgeon's office. If physician is unavailable and it is an emergency, call 911 or go to the nearest emergency room. . Instructions / Follow-Up Instructions / Follow-Up The following are instructions to follow after "Shoulder Surgery" including, Acromioplasty, Rotator Cuff Repair and Instability Surgery ACTIVITY RECOMMENDATIONS: * Minimize activity after surgery. * No excessive walking, jogging, sports or laboring. * Return to activity is individualized depending on the patient and type of surgery. * Driving is not permitted until at least your first post operative visit. Please ask your doctor when it is safe to resume driving. * Expect increased discomfort with increased activity. Continue to ice the shoulder as needed. SCHOOL/WORK RECOMMENDATIONS: * You may return to sedentary work or school when you are feeling more comfortable. This is usually 3-7 days after surgery. MEDICATIONS: * You will have a prescription for pain medication and an anti-inflammatory medication after surgery. * Use the pain medication for severe pain and the anti-inflammatory for less severe pain. Once the pain medication has run out, try to use the anti-inflammatory medication. If this is not effective, contact the office for assistance. * Resume your clindamycin starting today if tolerating food. Take same dose as she did prior to surgery. * The pain medication may cause nausea, constipation and drowsiness. You should see how they affect you before driving or similar activity. * The anti-inflammatory medication may cause stomach upset and bleeding. If this occurs let your doctor know immediately . * Take a stool softener like Colace or a laxative like Senokot to prevent constipation. DIET: * Resume previous diet. SPECIAL CARE: ICE: You have the option of an ice cooler, gel packs or ice bags. * If you have an ice cooler, refer to the instructions for that device. The ice cooler may be used continuously. * If you do not have an ice cooler, you will need to use ice bags or gel packs. Do not apply ice directly to the skin. Use a thin dressing or mac shirt between the skin and ice bag. Apply ice for 20-30 minutes and repeat every 2-4 hours. This is especially important for the first 7-10 days after surgery. Once the pain improves, use ice as needed. ELEVATION: * You may be more comfortable sleeping in an upright position. Use the sling to elevate your arm. DRESSING: * Your dressing will be changed at your first therapy appointment approximately 4-5 days after surgery. Band-aids, tape strips or gauze may be applied. You may then change your dressing daily. * Reapply dressing followed by the EBIce cooling pad (if chosen) and then the sling. * Always wash your hands prior to touching the incision area. * Once the stitches are removed, you may leave the wound open to air or cover with gauze. * Expect some bloody drainage for the first few days after surgery. * Leave the tape strips, if present, in place for 5-7 days. * Band-aids and gauze may be changed daily. * There may be a gauze pad in your armpit area. This can be changed daily or replaced by a dry washcloth. SLING/BRACE: * You will need to use a sling or brace after surgery. The length of time the sling is used is dependent upon the type of surgery performed. * Arthroscopic Acromioplasty requires use of the sling for 2-4 weeks for comfort. * Labral procedures and Rotator Cuff Repairs require use of the sling for a longer period of time. Please check with your doctor prior to discontinuing the sling. BATHING: * You may shower or sponge-bathe immediately after surgery. The post operative shoulder dressing is mostly water-tight. You may shower right over this dressing, but be reasonably careful not to get the gauze or incision wet. * Once the dressing has been changed on the fourth or fifth day after surgery, you may shower and get the incision wet. * Wash with regular soap and water. * Do not bathe (submerge the incision), soak, swim or use a hot tub until the incision is completely healed over with normal skin and the doctor has given the OK to proceed. * There is no need to apply any ointments, powders or salves to your incision. * Do not apply alcohol or hydrogen peroxide directly to the incision. * Diluted peroxide (50:50 mixture with sterile saline) may be used to clean dried blood from around the incision area. THERAPY: * You will begin therapy four or five days after surgery. * Organized therapy with the therapist is important for the first 2-4 months after surgery depending on the type of procedure. During that time you will attend therapy 1-3 times per week. * You will also need to do daily exercises for range of motion and strength as instructed. * Patients who have a Capsular Shift Procedure will need to abide by temporary range of motion limitations. * Patients having Rotator Cuff Surgery are not allowed to actively lift their arms until 4-6 weeks after surgery. * Please check with your doctor regarding appropriate motion restrictions. FOLLOW UP VISIT: * If not already scheduled, please call the office at to schedule a follow-up appointment for 10 days after surgery and monthly thereafter. * Start physical therapy on Friday or Friday. Please call for appointment. Prescription is provided today for instructions. * You have a follow-up appointment scheduled with Dr. Hodges on 02/26/2017 at 1:15 PM Diet Recommendations Home Diet: no limitations, resume previous diet Procedures Procedures Performed: Left Shoulder Arthroscopic Extemsive Debridement, Biceps Tenotomy With Cultures, Examine under anesthesia Pending Studies Studies pending at discharge: no Medical Emergencies . Who to Call and When: Medical Emergencies: If at any time you feel your situation is an emergency, please call 911 immediately. . Non-Emergent Contact Non-Emergency issues call your: Surgeon Call Non-Emergent contact if: temperature is above 101, your pain is not controlled, wound has increased drainage, wound has increased redness, wound has increased pain, you have any medication questions . . "Provider Documentation" section prepared by Tressa Rhoades. . [place] Drug Monitoring Program Search Results: patient reviewed within database, no issues identified
--- NOTE | 2017-02-13 10:56 | [facility] Operative Report ---
Operative Report Operative Date Feb 13, 2017. Pre-Operative Diagnosis Left shoulde infection, status post rotator cuff repair Post-Operative Diagnosis Same as pre-op Procedure(s) Performed Left Shoulder Arthroscopic Extensive Debridement, Biceps Tenotomy With Cultures, Examine under anesthesia Surgeon Exhibitor Sales Surgeon(s) Tressa Aguilar PA-C Estimated Blood Loss 1ML Findings Scarring, small rotator cuff tear. Specimens #1 Left shoulder joint culture-hold for 2 weeks for P.Acnes #2 Left shoulder intrarticular tissue culture & biopsy-hold for 2 weeks for P.Acnes #3 Left shoulder bursa tissue culture & biopsy-hold for 2 weeks for P.Acnes #4 Left shoulder bursa culture-hold for 2 weeks for P.Acnes Drains none Anesthesia Gen. with peripheral nerve block Complication(s) None Disposition Recovery Room / PACU (stable) Indications Patient is a 41-year-old male who is status post a left shoulder rotator cuff repair last year he then developed a postoperative infection. He then underwent hardware removal in August 2016. He has been on suppressive antibiotics since. It was determined that he would undergo a left shoulder arthroscopy debridement tenotomy and intraoperative cultures. Risks and complications of the surgery were explained to the patient and he agreed to proceed. Informed consent was obtained. His antibiotics were held for 3 weeks prior to surgery. Description of Procedure Patient was taken to the operating room and placed under general anesthesia. He was given a peripheral nerve block of his left shoulder. He was given 2 g of IV Ancef for surgical prophylaxis. Timeout was performed. He was prepped and draped in routine sterile fashion. I was present during the entire case, please see Dr. Hodges's operative report for further detail. Patient was awakened and transferred to the recovery room in stable condition. I attest to the content of the Intraoperative Record and any orders documented therein. Any exceptions are noted below.
--- NOTE | 2017-02-13 11:00 | [facility] Operative Report ---
Operative Report Operative Date Feb 13, 2017. Pre-Operative Diagnosis Left shoulde infection, status post rotator cuff repair Post-Operative Diagnosis Same as pre-op Procedure(s) Performed Left Shoulder Arthroscopic Extemsive Debridement, Biceps Tenotomy With Cultures, Examine under anesthesia Surgeon Title Specialist Surgeon(s) Margie STARKS Estimated Blood Loss 25 mL Findings Thinning of the rotator cuff tendon posteriorly. Full-thickness perforation of the rotator cuff without detachment from the greater tuberosity. Specimens #1 Left shoulder joint culture-hold for 2 weeks for P.Acres #2 Left shoulder intrarticular tissue culture & biopsy-hold for 2 weeks for P.Acres #3 Left shoulder bursa tissue culture & biopsy-hold for 2 weeks for P.Acres #4 Left shoulder bursa culture-hold for 2 weeks for P.Acres Drains none Anesthesia laryngeal mask with peripheral nerve block Complication(s) None Disposition Recovery Room / PACU Implants None Indications Patient's a 41-year-old male little a little over 1 year status post a arthroscopic left shoulder rotator cuff repair. He had postoperative stiffness. He underwent a shoulder arthroscopy debridement and cultures which showed an infection with Propionibacterium acnes. He was treated with antibiotics. He then had a third operation to debride and remove his implants. He now goes back to surgery as he has continued pain and crepitation. MRI suggest thinning of the rotator cuff. He has anterior pain. It is thought that the the biceps tendon is responsible for this discomfort. We talked about the differences between Tenodesis and tenotomy. Further foreign material and implants are desired to be avoided and therefore tenotomy was elected. We'll also do debridement to try to help with pain and range of motion. We'll also take cultures to of a violated for eradication of infection. We will also evaluate rotator cuff. If there is a rotator cuff tear due to concerns of recurrence of infection with implants or foreign material. We will leave the rotator cuff as is for now. Description of Procedure Informed consent was obtained. The patient identified as Helder mahajan. He identified the operative site as the left shoulder. I marked with my initials. Preoperative surgical timeout was performed. A preoperative dose of IV antibiotics was given. His preoperative oral antibiotics of been held for 3 weeks. DVT prophylaxis intraoperatively with foot pumps postoperatively with early mobility. No local anesthetic with injection was given. The general anesthetic and nerve block were administered by the anesthesiologist. He was positioned beachchair with the neck held in neutral alignment. The eyes were carefully lubricated and taped shut. Padding was applied around the mastoid processes. The torso secured to the table with tape and kidney rest the heels were padded and the knees were flexed. The NeuravionO arm queen and Tennent body positioner were utilized. The examination under anesthesia revealed grade 2 anterior and posterior translation and grade 2 sulcus equal to the opposite side. There was crepitation with forward elevation the shoulder likely localized to the subacromial space. The shoulder could not be dislocated. Her motion showed approximate 20 of external rotation on the right side compared to about 15 on the left. His internal rotation was equal with the arm to side and with the arm at 90 of abduction. External rotation was about 95 on the right and 85 on the left. His forward elevation was 180 on the right and 170 on the left. His abduction was perhaps 5 less than the opposite side. Therefore his range of motion passively was within 10 of the opposite side in all planes. Cleaning Specialist photographs were obtained. The left upper extremity was prepped and draped in usual sterile fashion a double prep was performed. The axilla was excluded from the field with Ioban. Prior arthroscopic portals were utilized were appropriate. Posterior viewing portal was established followed by anterior working portal using the outside in technique. There was some bleeding within the joint likely due to the examination and manipulation preoperatively. There was some mild synovitis around the rotator cuff insertion. There was injection and streaking of the biceps tendon but otherwise normal in appearance a biceps tenotomy was performed and stump was debrided. The rotator interval and subscapularis appeared to be normal and the glenoid labrum was intact circumferentially. The axillary pouch was somewhat scarred but intact there were no loose bodies. The articular surface of the glenoid was normal. The articular surface of the humeral head was normal with some fibrillation. Posteriorly there were some irregularities of the articular cartilage just medial to the bare area consistent with what was seen previously. There was a chondral defect located superiorly which was seen on prior arthroscopic evaluation. Initial up action upon entering the shoulder was to obtain a swab culture of the rotator cuff insertion and synovial punch biopsies of the tissue in that area without injuring the rotator cuff. This was mainly scar tissue. I then went into the subacromial space. Significant scarring was noted. Culture was obtained and punch biopsies of this scar tissue in different areas of the bursa were obtained. There was a swab culture labeled left shoulder intra-articular a tissue culture labeled left shoulder intra-articular a bursal swab culture and tissue culture labeled as such. All were to be held for 2 weeks labeled periprosthetic culture looking for P acnes. I then did an extensive debridement of the subacromial space there was some fraying on the upper surface of the rotator cuff bursa area and undersurface of the acromion consistent with impingement which may have accounted for his crepitation. Scar tissue in the gutters was debrided scar tissue on the medial upper surface of the rotator cuff was debrided. Electro Cautery was utilized for hemostasis. The anterior and superior rotator cuff appeared to be intact. There was questionable thinning posteriorly. After taking cultures and thoroughly debriding the subacromial space I reentered the shoulder joint. I debrided the rotator cuff insertion but found that the rotator cuff was approximated to the articular cartilage margin without evidence of a full- thickness tear. The scope was placed anterior and posterior structures were visualized. The posterior portion of the rotator cuff repair was inspected and there appeared to be some undersurface partial thickness delamination. There was no full-thickness tearing of the rotator cuff. There was a perforation which was a few millimeters wide and perhaps a centimeter in length beginning at the bone and proceeding medialward. The rotator cuff tendon looked to be about 5 mm in thickness at the minimum in this area for its attachment. The rotator cuff otherwise was intact without evidence of a full-thickness detached tear. I did reenter the bursal space and examined this and probe. Again no full-thickness tear but the perforation longitudinal was noted. This could be repaired with perhaps a single stitch but given his history of the infection we agreed not to do any repairing at this point. Concern for recurrent infection particularly with any foreign material or implants. This perforation would've been in the region of the juncture between the supraspinatus and infraspinatus The arthroscopic instruments were removed from the shoulder the portals were closed with an interrupted nylon sutures a postoperative soft sterile dressing was applied with an ABG in the armpit. He was applied and a simple sling. The specimens were as mentioned above. Multiple cultures and biopsies. Counts are correct in the case blood loss was minimal. At the conclusion operations both patient's and informed her my findings postoperative instructions were given. He'll be able to do early active range of motion of the shoulder as tolerated without restriction in terms of movement. He can begin doing some shoulder isometrics and we will cautiously progress with rotator cuff rehabilitation and strengthening in the future. He is to resume his preop oral antibiotic until we have definitive cultures back. Blood loss was approximately 25 mL. No residual foreign material was noted in the shoulder. I attest to the content of the Intraoperative Record and any orders documented therein. Any exceptions are noted below.
[2017-02-13 11:56] VITALS: PULSE 68; TEMP 36.7; O2SAT 97
--- NOTE | 2017-02-13 12:11 | Anesthesia Progress Nt - [facility] ---
Anesthesia Post Op Note Date & Time Feb 13, 2017 at 12:11 Vital Signs Pain Intensity: 0 Vital Signs Past 12 Hours Date Time Temp Pulse Resp B/P (MAP) Pulse Ox O2 Delivery O2 Flow Rate FiO2 02/13/17 11:56 36.7 68 123/83 (96) 97 Room Air 02/13/17 11:20 36.2 02/13/17 11:17 63 22 02/13/17 11:17 63 22 99 02/13/17 11:16 135/94 (101) 02/13/17 11:15 Room Air 02/13/17 11:12 68 23 02/13/17 11:12 67 23 98 02/13/17 11:10 135/92 (97) 02/13/17 11:07 65 21 02/13/17 11:07 65 21 99 02/13/17 11:06 125/90 (103) 02/13/17 11:02 69 22 02/13/17 11:02 68 22 100 02/13/17 11:01 136/90 (96) 02/13/17 10:57 74 21 02/13/17 10:57 75 21 99 02/13/17 10:56 131/94 (98) 02/13/17 10:52 74 23 98 02/13/17 10:52 74 23 02/13/17 10:51 143/87 (101) 02/13/17 10:48 143/84 (100) 02/13/17 10:45 36.7 76 16 143/84 98 Diffusion Mask 5 02/13/17 08:47 0 02/13/17 08:42 76 30 99 02/13/17 08:42 76 02/13/17 08:41 102/78 02/13/17 08:37 77 25 98 02/13/17 08:37 76 02/13/17 08:35 116/75 02/13/17 08:32 78 02/13/17 08:32 78 29 99 02/13/17 08:31 114/79 02/13/17 08:27 61 18 99 02/13/17 08:27 64 02/13/17 08:26 123/74 02/13/17 08:25 61 13 123/74 (90) 100 Mask 6 02/13/17 08:22 62 02/13/17 07:17 36.7 64 16 116/78 (05) 98 Room Air Notes Mental Status: alert / awake / arousable, participated in evaluation Pt Amnestic to Procedure: Yes Nausea / Vomiting: adequately controlled Pain: adequately controlled Airway Patency, RR, SpO2: stable & adequate BP & HR: stable & adequate Hydration State: stable & adequate Anesthetic Complications: no major complications apparent
[2017-02-13 12:12] VITALS: BP 130/76
== END | disposition home or self-care (01) ==
LOC: X.SURG 06:38
PROVIDERS: ATTEND Physical Medicine & Rehabilitation Sports Medicine
DX: M00.9 Pyogenic arthritis, unspecified (principal); Z98.890 Other specified postprocedural states; F17.200 Nicotine dependence, unspecified, uncomplicated; Z88.1 Allergy status to other antibiotic agents

== ENCOUNTER → 2017-03-03 | Outpatient (CLI) | payer OTHER ==
[~2017-03-03] MED LIST changes: -ATROPINE SULFATE 0.1 MG/ML 5ML SYR IV PRN; -CEFAZOLIN 2000MG IV PUSH 10 ML IV SCH; -DEXAMETHASONE SOD INJ 4 MG/ML VIAL IV PRN; -EpHEDrine SULFATE INJ 50 MG/ML AMP IV PRN; -EpINEphrine INJ 1MG/ML AMP 1 MG/ML AMP ONE; -FENTANYL CITRATE INJ 50 MCG/1 ML 2 ML VIAL IV PRN; -FENTANYL CITRATE INJ 50 MCG/1 ML 2 ML VIAL ONE; -KETOROLAC TROMETHAMINE 30 MG/ML VIAL IV. PRN; -LABETALOL HCL IV 5 MG/ML 20ML IV PRN; -LACTATED RINGER'S 1000ML 1,000 ML IV SCH; -LIDOCAINE/EPINEPHRINE 1% INJ 50 ML VIAL ONE; -METOCLOPRAMIDE HCL INJ 5 MG/ML 2 ML VIAL IV PRN; -MIDAZOLAM HCL 1 MG/ML 2ML VIAL ONE; -MoRPHine SULFATE 10 MG/ML CARP/VIAL IV PRN; -MoRPHine SULFATE 2 MG/ML CARP IV PRN; -MoRPHine SULFATE 4 MG/ML 1 ML CARP\\VIAL IV PRN; -ONDANSETRON INJ 2 MG/ML 2 ML VIAL IV PRN; -ONDANSETRON INJ 2 MG/ML 2 ML VIAL ONE; -OXYCODONE HCL IR 5 MG TAB (IMMEDIATE RELEASE) PO PRN; -PHENYLEPHRINE 100MCG/ML 5ML SYR IV PRN; -PROPOFOL IV EMULSION 10 MG/ML 20 ML VIAL IV ONE; -ROCURONIUM BROMIDE 10 MG/ML 5 ML VIAL IV ONE; -ROPIVACAINE 0.5% 5 MG/ML 30 ML VIAL ONE; -SODIUM CHLORIDE 0.9% 1000ML 1,000 ML IV SCH; -SUCCINYLCHOLINE CHLORIDE 20 MG/ML 10 ML VIAL IV ONE
[2017-03-03 10:34] LABS: BASO % 0.6 %; BASO ABS # 0.07 K/uL (0-0.2); COMPLETE YES; HEMATOCRIT 44.1 % (42-52); IG% 0.3 %; LYMPH % 18.3 %; LYMPH ABS # 2.21 K/uL (1.2-3.4); MEAN CELL VOLUME 92.6 fL (80-100); MEAN CORPUSCULAR HEMOGLOBIN 31.5 pg (25-34); MEAN PLATELET VOLUME 9.2 fL (7.4-10.4); MONO % 7.6 %; NEUT % 71.2 %; PLATELET COUNT 226 K/uL (130-400); RED BLOOD COUNT 4.76 M/uL (4.7-6.1); WHITE BLOOD COUNT 12.08 K/uL (4.8-10.8)
[2017-03-03 11:06] LABS: ALT/SGPT 29 U/L (12-78); BLOOD UREA NITROGEN 13 mg/dl (7-18); BUN/CREATININE RATIO 12.4 (10-20); C-REACTIVE PROTEIN 1.06 mg/dl (0-0.29); CALCIUM 8.8 mg/dl (8.5-10.1); CARBON DIOXIDE 25 mmol/L (21-32); CHLORIDE 104 mmol/L (98-107); CREATININE 1.07 mg/dl (0.60-1.40); GLUCOSE 94 mg/dl (70-99); POTASSIUM 4.2 mmol/L (3.5-5.1); SODIUM 136 mmol/L (136-145)
[2017-03-03 11:08] LABS: ALB/GLOB RATIO 1.2 (0.9-2); ALKALINE PHOSPHATASE 101 U/L (45-117); AST/SGOT 17 U/L (15-37)
== END | disposition home or self-care (01) ==
LOC: C.LAB1850 09:43
PROVIDERS: ATTEND Internal Medicine Infectious Disease
DX: M00.812 Arthritis due to other bacteria, left shoulder (principal)

== ENCOUNTER → 2017-08-11 | Outpatient (CLI) | payer OTHER | END | disposition home or self-care (01) | LOC: C.RDSM 13:36 | PROVIDERS: ATTEND Physical Medicine & Rehabilitation Sports Medicine | DX: Z98.890 Other specified postprocedural states (principal); T81.4XXD Infection following a procedure, subsequent encounter; S46.012D Strain of muscle(s) and tendon(s) of the rotator cuff of left shoulder, subsequent encounter; X58.XXXD Exposure to other specified factors, subsequent encounter ==

== ENCOUNTER 2017-11-13 08:18 | Observation (INO) | payer OTHER ==
[2017-11-13] VITALS (13 sets, daily range): BP systolic 107–126; BP diastolic 65–82; PULSE 48–75; TEMP 36.5–37.1; O2SAT 95–100; Ht 175.3 cm; Wt 74.1 kg
[~2017-11-13] VITALS: Ht 175.3 cm; Wt 74.1 kg
[~2017-11-13 08:18] MED LIST changes: +ASPI81TA28 PO; -OXYC1TAB3 PO
[2017-11-13] MEDS ORDERED: ATOR-26 PO (09:17)
[2017-11-13] MEDS ORDERED: ASPECOTC PO (09:17)
[2017-11-13] MEDS ORDERED: ATEN-173 PO (09:17)
[2017-11-13] MEDS ORDERED: OMEG10007 PO (09:17)
[2017-11-13] MEDS ORDERED: MIDAZOLAM HCL 1 MG/ML 2ML VIAL ONE ×3 (10:36→11:42)
[2017-11-13] MEDS ORDERED: HEPARIN SOD (PORCINE) 1000 UNIT/ML 10 ML VIAL ONE (10:36)
[2017-11-13] MEDS ORDERED: FENTANYL CITRATE INJ 50 MCG/1 ML 2 ML VIAL ONE (10:36)
[2017-11-13] MEDS ORDERED: NiCARDipine HCL INJ 2.5 MG/ML 10 ML AMP ONE (10:36)
[2017-11-13] MEDS ORDERED: NITROGLYCERIN/D5W 100MCG/ML 20ML SYR ONE (10:39)
[2017-11-13] MEDS ORDERED: SODIUM CHLORIDE 0.9% 1000ML 1,000 ML IV SCH (11:35)
--- NOTE | 2017-11-13 11:41 | Cardiac Catheterization ---
Procedure Note Procedure Date Nov 13, 2017. Pre-Procedure Diagnosis Angina AUC Score 9 Post-Procedure Diagnosis Severe CAD Procedure(s) Performed Coronary Angiography, Left Heart Cath, LV Angiography Field Irrigation Worker Dr. Perez Marine Oil Terminal Superintendent(s) None Estimated Blood Loss None Medication(s) Versed, Lidocaine 1% Summary of Findings See dictated report Hemodynamics Rest Ao: 111/63 Final Ao: 117/65 LV: 123/19 Recommendations PCI without planned CABG Specimens None Radiation Exposure (mGy) 794 Contrast (mls) 70 Procedural Complication(s) None Disposition PCU ACC Data Cardiac Status Clinical evaluation leading to the procedure CAD Presntation: Stable angina Anginal Classification: CCS III Heart Failure: No Cardiogenic Shock w/in 24Hrs: No Cardiac Arrest w/in 24Hrs: No Imaging studies past 6 months: No Stress studies past 6 months: No Coronary Anatomy Dominant: Right LAD (% Stenosis): Proximal (95%), Mid (80%) OM1 (% Stenosis): Normal OM2 (% Stenosis): Normal L PDA (% Stenosis): Distal (Tandem 80% and 90%) RCA (% Stenosis): Proximal (70%) Left Ventricular Angiography EF (%): 60% Mitral Regurgitation: None Diagnostic Physician's Name: Ry Perez, DO Status: Elective Closure Device Percutaneous Entry Location: Femoral
[2017-11-13] MEDS ORDERED: DC ALL ANTICOAGULANTS ONE (11:45)
--- NOTE | 2017-11-13 11:48 | Procedure Note ---
Cardiac Cath Report Procedure: 1. Left heart catheterization 2. Coronary angiography 3. Left ventriculogram History: This is a 42-year-old male patient who presented with classic exertional angina. He has a history of cigarette smoking and familial hypercholesterolemia. Procedure summary: After informed consent was obtained the patient was taken to the cardiac catheterization lab. I attempted to gain access from a right radial approach however even with the use of ultrasound I was not able to cannulate the radial artery. We then switched to a right transfemoral approach utilizing a retrograde selinger technique. Preformed 5 Bengali diagnostic catheters utilized for the coronary angiograms. A 5 Bengali pigtail catheter was utilized for the left ventriculogram. Following the procedure the patient underwent coronary intervention. Coronary angiography: Selective injections of the left coronary artery revealed the left main trunk to be widely patent. The left circumflex artery consists of a large first marginal or ramus branch which is widely patent and then a smaller second marginal branch which is also patent. The proximal LAD just at the takeoff of the left main trunk has a 95% long stenosis. There is diffuse disease throughout the proximal and mid segment of the LAD and just after the first septal tanker service attendant there is an 80% long stenosis. The remainder the LAD is widely patent. There is a second ramus branch from the left main trunk which is patent. The right coronary artery is dominant. There is a 90% stenosis in the proximal right coronary artery and then to tandem lesions distally 80% and 90% respectively. Left ventriculogram The left ventricle is of normal size with normal systolic function. The estimated left ventricular ejection fraction is 60%. The LVEDP is 19. The mitral valve is competent. Summary: Severe two-vessel coronary artery disease including proximal LAD and mid LAD stenosis along with proximal right coronary and distal right coronary lesions. Left ventricular function is preserved. Recommendations: The patient's will be reviewed with interventional cardiology.
[2017-11-13] MEDS ORDERED: NITROGLYCERIN 0.4 MG SL PER TAB CHARGE ONE ×2 (11:52→12:09)
[2017-11-13] MEDS ORDERED: TICAGRELOR 90 MG TAB PO ONE (12:19)
[2017-11-13] MEDS ORDERED: IV FLUIDS COMPLETED PRN (13:45)
--- NOTE | 2017-11-13 13:45 | CARDIAC CATH REPORT ---
INDICATION: Unstable angina, positive stress test in a 42-year-old smoker. PROCEDURE PERFORMED: PCI with drug-eluting stent x6 (normal 6), 2-vessel left anterior descending artery and right coronary artery, radiological interpretation and supervision. METHOD: Upon completion of cardiac catheterization and after review of cardiac catheterization films, the 5-Kinyarwanda sheath in the right femoral artery was exchanged over wire for a 6-Kinyarwanda sheath, was aspirated and flushed. Intravenous heparin was administered and titrated to an ACT on the order of 250 seconds. A 6-Kinyarwanda JR4 guiding catheter with sideholes was advanced over wire under fluoroscopic guidance to the central circulation where it was aspirated and flushed. After confirmation of adequate waveform, it was advanced into the right coronary artery. Cineangiograms of the right coronary were obtained and reviewed. A 0.014-inch lumber carrier wire was advanced through the guiding catheter across the area of stenosis to the distal subbranch of the posterolateral branch. A 2.0 Mini Trek 15 angioplasty catheter was positioned in the ostial posterior AV extension of the right coronary artery, in the distal right coronary artery, proximal right coronary with multiple inflations made to maximum pressure of less than 1 and balloon was withdrawn. A 2.5 Xience 15 stent was positioned in the ostial posterior AV extension of the right coronary artery, inflated to maximum pressure of less than a minute, balloon was withdrawn. A 2.75 Xience 15 stent was positioned in the distal right coronary, inflated to maximum pressure of less than a minute, balloon was withdrawn. A 3.0 Xience 15, then 3.0 Xience 12 were positioned in the proximal right coronary and each inflated to maximum pressure of less than a minute. Balloon was withdrawn. The distal and proximal right coronary artery stented segments were postdilated with multiple inflations to maximum pressure using a 3.0 NC Trek 15 to maximum pressure of less than a minute. The balloon was withdrawn. Final cineangiograms were obtained and the wire was removed from the coronary artery, guiding catheter was removed from the right coronary artery under fluoroscopic guidance, removed from body over wire and the sheath was aspirated and flushed. A 6-Kinyarwanda EBU 3.5 guiding catheter was advanced over wire under fluoroscopic guidance to the central circulation. It was aspirated and flushed. After confirmation of adequate waveforms, it was advanced into the left main. Cineangiogram of the left anterior descending was obtained and reviewed. A new 2.5 Mini Trek 15 angioplasty catheter was positioned first in the mid LAD, then in the proximal and ostial LAD. Each inflated to a maximum pressure of less than a minute. Balloon was withdrawn. A 2.5 Xience 15 stent was positioned in the mid LAD, inflated to maximum pressure of less than a minute. Balloon was withdrawn. A 2.5 Xience 12 stent was positioned in the ostium and proximal left anterior descending artery, inflated to maximum pressure of less than a minute. Balloon was withdrawn. Both stented segments were postdilated to maximum pressure using a 2.5 NC Trek 12 to maximum pressure of less than a minute. Balloon was withdrawn. Final cineangiograms were obtained and the wire was removed from the coronary artery, guiding catheter was removed from left main under fluoroscopic guidance, Kinyarwanda sheath and flushed. An Angio-Seal was deployed over the right femoral artery. The patient returned to his room in good condition. COMPLICATIONS: None. FINDINGS: Initial cineangiograms demonstrated an ostial 80 and a mid 80% stenosis of a relatively small of the LAD, final cineangiograms demonstrated no residual stenosis, normal cut resection, BOB grade 3 flow throughout the stented segments. Initial cineangiograms demonstrated an ostial 80, proximal 80, distal 90% stenosis of the RCA and an ostial 90% stenosis of the posterior AV extension of the right coronary artery. Final cineangiograms demonstrate no residual stenosis, no uncovered resection and BOB grade 3 flow throughout the vessels including the PDA. IMPRESSION: Successful angioplasty, drug-eluting stent placement. RECOMMENDATIONS: Smoking cessation, medical therapy of risk factors in the face of now documented coronary artery disease in the young man. Dual antiplatelet therapy for minimum of 1 year.
[2017-11-13] MEDS: SODIUM CHLORIDE 0.45% 1000ML 1,000 ML IV SCH ×2 (16:26→18:27)
[2017-11-13] MEDS ORDERED: ACETAMINOPHEN 325 MG TAB ONE (18:25)
[2017-11-13] MEDS ORDERED: NURSING VERBAL MED ORDER ONE (18:30)
[2017-11-13] MEDS ORDERED: ACETAMINOPHEN 325 MG TAB PO PRN (18:30)
[2017-11-13] MEDS: TICAGRELOR 90 MG TAB PO SCH (20:43)
[2017-11-14 03:49] VITALS: BP 110/64; PULSE 66; TEMP 36.7; O2SAT 95
[2017-11-14] MEDS: SODIUM CHLORIDE 0.45% 1000ML 1,000 ML IV SCH (04:28)
[2017-11-14 06:12] LABS: BASO % 0.2 %; BASO ABS # 0.03 K/uL (0-0.2); EOS % 2.4 %; EOS ABS # 0.32 K/uL (0-0.5); HEMATOCRIT 40.3 % (42-52); HEMOGLOBIN 13.9 g/dL (14.0-18.0); IG# 0.06 K/uL (0.00-0.02); LYMPH ABS # 2.11 K/uL (1.2-3.4); MEAN CELL VOLUME 92.4 fL (80-100); MEAN CORPUSCULAR HEMOGLOBIN 31.9 pg (25-34); MEAN CORPUSCULAR HGB CONC 34.5 g/dl (32-36); MEAN PLATELET VOLUME 9.7 fL (7.4-10.4); MONO % 9.4 %; MONO ABS # 1.24 K/uL (0.11-0.59); NEUT % 71.5 %; NEUT ABS # 9.39 K/uL (1.4-6.5); PLATELET COUNT 201 K/uL (130-400); RED CELL DISTRIBUTION WIDTH CV 12.7 % (11.5-14.5); RED CELL DISTRIBUTION WIDTH SD 42.7 fL (36.4-46.3); WHITE BLOOD COUNT 13.15 K/uL (4.8-10.8)
[2017-11-14 07:16] VITALS: BP 121/70; PULSE 65; TEMP 36.7; O2SAT 96
[2017-11-14] MEDS: TICAGRELOR 90 MG TAB PO SCH (08:35)
[2017-11-14] MEDS ORDERED: ASPIRIN 81 MG ECTAB PO SCH (09:00)
[2017-11-14] MEDS ORDERED: ATORVASTATIN 40 MG TAB PO SCH (09:00)
[2017-11-14] MEDS ORDERED: ASPI-461 PO (09:30)
[2017-11-14] MEDS ORDERED: PLAVIX75 PO (09:30)
[2017-11-14] MEDS ORDERED: CLOPIDOGREL BISULFATE 300 MG TAB PO STA (09:35)
--- NOTE | 2017-11-14 09:35 | Discharge Instructions ---
Discharge Instructions Procedure Procedure Date: Nov 14, 2017. Reason for Visit: Abnormal Stress, Chest Pain *Dr Perez Doing*. Discharge Discharge Date: Nov 14, 2017. Discharge Diagnosis: Coronary artery disease s/p 2 vessel stenting, LASHAY Last Recorded Wt (Kilograms): 74.100 Anesthesia Post Anesthesia Instructions: If you have had General Anesthesia or IV Sedation: * Do not drive today. * Resume driving when surgeon permits. * Do not make important decisions or sign legal documents today. * Call surgeon for: 1. Temperature elevations greater than 101 degrees F. 2. Uncontrollable pain. 3. Excessive bleeding. 4. Persistent nausea and vomiting. 5. Medication intolerance (nausea, vomiting or rash). * For nausea and vomiting use only clear liquids such as: tea, soda, bouillon until nausea subsides, then gradually increase diet as tolerated. * If you have any concerns or questions, call your surgeon's office. If physician is unavailable and it is an emergency, call 911 or go to the nearest emergency room. Instructions Activity Recommendations: limitations as noted below Recommended Home Diet: low cholesterol Allergies: Coded Allergies: Ceftriaxone (Verified Allergy, Intermediate, fatigue,wt loss, severe dehydration, 10/20/17) Provider Instructions ACTIVITY RECOMMENDATIONS: It is common to feel weak and fatigue for a few days. * Do not drive or operate any motorized equipment for the next three days. * Limit stair usage (2 or 3 trips a day only) for the next three days. * Do not lift anything heavier than 10 pounds for the next three days. * Do not engage in vigorous exercise or any sports for the next five days. * You may shower the day after your procedure, but do not immerse the area for three days. Cleanse the site gently with soap and water. SPECIAL CARE INSTRUCTIONS: * You may replace the pressure dressing or band-aid the morning after the procedure. * After your procedure, it is normal to have a small bruise or small lump at the site. Examine your site daily for any change in the bruise or lump, redness, swelling, drainage or numbness. Notify your doctor if any change. BLEEDING: * If there is a small amount of bleeding at the site, lie down and apply firm pressure with a clean cloth for ten minutes. When the bleeding stops, lie quietly keeping the procedure limb straight for six hours. Notify your doctor as soon as possible. * If the bleeding does not stop after ten minutes or if there is a large amount of bleeding or spurting, call 911 immediately. Continue to lie down and hold firm pressure until help arrives. SKIN IRRITATION: * You may experience some redness and/or swelling in the area where radiation was administered. If any skin irritation occurs, please contact your family physician. FOLLOW UP VISIT: Keep any scheduled doctor appointments. Follow Up Additional Instructions: Continue tobacco abstention Follow-up with: Dr Perez as scheduled Gloria Luevano Recommendations: Call your doctor if: * Temperature above 101 degrees * Pain not relieved by pain medicine ordered * There is increased drainage or redness from any incision * You have any unanswered questions or concerns. Your Doctors Instructions noted above were prepared by provider Jarrod Mccabe. Patient Signature Section: Patient Instructions Signature Page Helder Melendez Patient (or Guardian) Signature/Date: I have read and understand the instructions given to me by my caregivers. Caregiver/RN/Doctor Signature/Date: The above-named patient and/or guardian has received patient instructions on this date. + Original Patient Signature Page (only) stays with chart. Please make copy for patient.
--- NOTE | 2017-11-14 10:16 | DISCHARGE SUMMARY ---
DISCHARGE DIAGNOSES: 1. Diffuse coronary atherosclerosis. 2. Status post successful 2-vessel coronary stenting using drug-eluting stents to the right coronary artery in 2 separate areas and the left anterior descending in 2 separate areas. 3. Familial hyperlipidemia. DISPOSITION: Discharged to home. CONDITION: Good. ALLERGIES: CEFTRIAXONE. DISCHARGE MEDICATIONS: Atenolol 25 mg p.o. daily, aspirin 81 mg p.o. daily, nitroglycerin sublingual 0.4 mg p.r.n. pain, Plavix 75 mg p.o. daily, atorvastatin 80 mg p.o. daily. DISCHARGE INSTRUCTIONS: Post cath instructions given. No driving, lifting, or strenuous activity x3 days. Call or go to the ER if sudden pain, swelling, bleeding in the groin develop. Follow up with Dr. Perez as scheduled. Cardiac rehab consulted. HISTORY OF PRESENT ILLNESS: Patient is a 42-year-old male with a history of progressive angina of 2 months or greater with positive stress testing referred for diagnostic cardiac catheterization. History is notable for prior tobacco use and familial hyperlipidemia. HOSPITAL COURSE: Patient was initially admitted for diagnostic cardiac catheterization study demonstrating small caliber vessels with diffuse coronary atherosclerosis, significant high grade obstruction with 95% narrowing of the proximal LAD, 80% narrowing of the mid left anterior descending, proximal narrowing of the right coronary of 70% with distal narrowing of 80%-90% of the right coronary artery. The patient underwent 2-vessel coronary intervention with stents to both areas of disease in the left anterior descending and the right coronary artery successfully. Groin access site was closed using Angio-Seal. Post procedure, patient tolerated well. On the day of discharge, he was ambulatory in the [place] without recurrent symptoms or complaints. There were no arrhythmias. DISCHARGE PLAN: Discharged to home with the aggressive management of multiple cardiac risk factors. Patient is already at tobacco abstention. High dose atorvastatin added to regimen. Dual antiplatelet therapy mandated for uninterruption for a year with combination of aspirin and clopidogrel.
[2017-11-14 10:49] VITALS: BP 121/70; PULSE 65; TEMP 36.7; O2SAT 96
== END 2017-11-14 12:00 | disposition home or self-care (01) ==
LOC: C.CATH 08:18 → ENRESERV 11:43 → C.2T 12:30
PROVIDERS: ADMIT Internal Medicine Interventional Cardiology; ATTEND Internal Medicine Interventional Cardiology
DX: I25.119 Atherosclerotic heart disease of native coronary artery with unspecified angina pectoris (principal); E78.4 Other hyperlipidemia; F17.200 Nicotine dependence, unspecified, uncomplicated; Z79.82 Long term (current) use of aspirin; Z82.49 Family history of ischemic heart disease and other diseases of the circulatory system

== ENCOUNTER 2025-03-13 10:52 | Inpatient (IN) ==
--- NOTE | 2025-03-13 12:01 | XRay Report ---
XR chest 1V not portable HISTORY: 49 years-old Male Chest pain, nonspecific COMPARISON: 09/02/2024 TECHNIQUE: AP view of the chest FINDINGS: Cardiomediastinal and hilar silhouettes are within normal limits. No pneumothorax, pleural effusion o r overt pulmonary edema. Mild patchy right basilar pulmonary opacities. The bones of the chest appear grossly intact. IMPRESSION: Findings suggestive of right basilar pneumonia. ACT 112: Negative or not required by law. The above report was generated using voice recognition software. It may contain grammatical, syntax o r spelling errors. Electronically signed by: Jorge Vega M.D. 03/13/2025 12:00 PM
--- NOTE | 2025-03-13 12:04 | Emergency Department Note ---
Impression & Plan Acute exacerbation of chronic obstructive airways disease, RLL pneumonia, Hypoxia ED Provider Note Provider: Delfino Stone MD CHIEF COMPLAINT: Cough, achy, sore throat, fatigue/weakness HISTORY OF PRESENT ILLNESS: Patient is a 49-year-old gentleman history of emphysema as well as CAD with stents earlier this year presenting here today reporting that since Friday he started to have little bit of sore throat and cold symptoms. On developed significant diffuse body aches and subjective fevers at home. Feeling weak and at times dizzy and quite lethargic. Has a little bit of pain with coughing and coughed enough that he threw up once. Denies any other nausea however or diarrhea. Started feel just a little bit better today but still with some ongoing cough symptoms. No chest pain like when he had cardiac disease in the past. No inhalers at home. Has used some NyQuil but no other [id number] medications other than cough drops. PAST MEDICAL HISTORY: As noted above MEDICATIONS: Reviewed home medications SOCIAL HISTORY: Former smoker PHYSICAL EXAM: GENERAL: alert and oriented in no acute distress on stretcher slightly fatigued, mask in place Head: normocephalic and atraumatic EYES: No injection, discharge or icterus. EOMI. NECK: Trachea midline. Supple with good range of motion noted ENT: Mucous membranes pink and moist. Pharynx without exudate or uvular deviation with slight erythema. LUNGS: Airway patent. No retractions. Breath sounds with some expiratory wheeze appreciable. HEART: Regular rate and rhythm. No chest wall tenderness SKIN: Acyanotic, warm, dry, without rashes EXTREMITIES: Without swelling, tenderness or deformity NEUROLOGICAL: No focal deficits. No aphasia. No facial droop or slurred speech. Ambulatory. EK bpm normal sinus rhythm. No PVC or PAC. No acute ST segment elevation or depression with some lead III T wave inversion. QTc 440. Patient's laboratory studies and imaging reviewed. Differential includes Reactive airway disease, pneumonia, URI, strep throat, RPA, NICKEL PLATER, meningitis, pneumothorax, COPD, CHF, infections, cardiac ischemia, pulmonary embolism, musculoskeletal, gastrointestinal, as well as other pathologies. IMPRESSION/MEDICAL DECISION MAKING: Patient in no severe distress. Does not appear altered. Does not appear meningitic. Not hypoxic here. Former smoker history of emphysema by report but not on inhalers or oxygen at home. Patient with some expiratory wheeze. Describes URI and bronchitis symptoms initially. X-ray obtained and sent to radiologist for review to exclude pneumonia. Blood work is sent as well. EKG without significant findings. Little bit of chest pain with coughing I doubt this represents PE dissection or ACS. Did complete a troponin for completeness given his fatigue symptoms. Diffuse body aches seem likely indicative of a viral process. COVID flu RSV testing was completed. No evidence of NICKEL PLATER or RPA on clinical exam but did send a strep test to exclude this. Given some IV steroid, DuoNeb, Tylenol, Mucinex, Tessalon Perle to help with symptoms here initially. Chest x-ray completed questioning possibly some early developing right basilar pneumonia findings per radiology report. No atilio large pneumonia or effusion noted. Negative COVID flu RSV and strep testing. Blood work without anemia or leukocytosis. Electrolytes without significant abnormality or renal dysfunction beyond some borderline hyponatremia 133. Troponin is normal. After nebulizer patient is noted to be hypoxic into the high 80s. Placed on 2 L of oxygen. Discussed with pharmacy. Treated with a dose of Unasyn and doxycycline here. Discussed with him that a combination of likely emphysema/COPD flare with early pneumonia is causing his symptoms. Given the hypoxia recommended observation overnight. DIAGNOSIS: COPD exacerbation, right lower lobe pneumonia, hypoxia DISPOSITION: Hospitalist will evaluate Patient was agreeable with this plan. Past Med/Surg History Problem List (Updated 03/13/25 @ 16:36 by Delfino Stone M.D.) Hypoxia (Acute) RLL pneumonia (Acute) Acute exacerbation of chronic obstructive airways disease (Acute) Chest pain (Acute) Dyslipidemia (Chronic) History of coronary artery stent placement (Chronic) CAD (coronary artery disease) (Chronic) Medical History Dyslipidemia CAD (coronary artery disease) Surgical History History of colonoscopy History of coronary artery stent placement Social History Smoking Status: Never smoker Tobacco Type: Cigarettes and E-cigarettes / Vaping Hx Alcohol Use: No Hx Substance Use: No Preferred Language: Chadian Communication Ability: Effective Hr Leader Required: No Beliefs That Will Affect Care: None marital status: Current Living Situation: Spouse and Family Feels Safe at Home: Yes Assistive Devices: None Allergies Allergies Allergy/AdvReac Type Severity Reaction Status Date / Time ceftriaxone Allergy Intermediate fatigue,wt Verified 09/02/24 13:41 loss, severe dehydration Home Meds Home Medications Medication Instructions Recorded Confirmed alirocumab 75 mg/mL subcutaneous 75 mg subcut Q14D 05/24/20 03/13/25 pen injector (Praluent Pen) aspirin 81 mg tablet,delayed 81 mg PO QAM 05/24/20 03/13/25 release (Marshal Low Dose Aspirin) atorvastatin 80 mg tablet 80 mg PO QAM 05/24/20 03/13/25 clopidogrel 75 mg tablet 75 mg PO QAM 05/24/20 03/13/25 ezetimibe 10 mg tablet 10 mg PO QAM 05/24/20 03/13/25 allopurinol 100 mg tablet 100 mg PO QAM 09/02/24 03/13/25 metformin 500 mg tablet,extended 500 mg PO QAM 09/02/24 03/13/25 release 24 hr bupropion HCl 300 mg 24 hr tablet, 300 mg PO QAM 03/13/25 03/13/25 extended release Previous Rx's Medication Instructions Recorded isosorbide mononitrate 30 mg 30 mg PO QAM #30 tabs 25 tablet,extended release 24 hr pantoprazole 40 mg tablet,delayed 40 mg PO DAILY #30 tabs 09/03/24 release Results & Data (ED) Vital Signs Vital Signs - 24 hr 03/13/25 11:08 03/13/25 12:04 03/13/25 12:04 Temperature 37.4 C Temperature Source Oral Pulse Rate 93 H Pulse Rate [Apical] 91 H Respiratory Rate 18 17 Respiratory Effort / Characteristics Non-Labored Spontaneous Respiratory Depth Normal Respiratory Pattern Blood Pressure 148/96 H Blood Pressure [Left Arm] 102/73 Blood Pressure Mean 113 Blood Pressure Mean [Left Arm] 82 Blood Pressure Position Sitting Blood Pressure Position [Left Arm] Pulse Oximetry 95 98 98 Oxygen Delivery Method Room Air Room Air Room Air Sepsis Recent Fever Within 48 Hours No Sepsis New/Unexplained Change in Mental Status No Sepsis Action Taken by Nursing No Action Required Oxygen Flow Rate - Titration Pulse Oximetry Post Tiitration 03/13/25 12:04 03/13/25 12:19 03/13/25 13:35 Temperature Temperature Source Pulse Rate Pulse Rate [Apical] 88 Respiratory Rate 18 Respiratory Effort / Characteristics Non-Labored Spontaneous Respiratory Depth Respiratory Pattern Blood Pressure Blood Pressure [Left Arm] Blood Pressure Mean Blood Pressure Mean [Left Arm] Blood Pressure Position Blood Pressure Position [Left Arm] Pulse Oximetry 98 94 87 L Oxygen Delivery Method Room Air Room Air Room Air Sepsis Recent Fever Within 48 Hours Sepsis New/Unexplained Change in Mental Status Sepsis Action Taken by Nursing Oxygen Flow Rate - Titration 2 Pulse Oximetry Post Tiitration 92 03/13/25 13:35 Temperature Temperature Source Pulse Rate Pulse Rate [Apical] 109 H Respiratory Rate 20 Respiratory Effort / Characteristics Non-Labored Spontaneous Respiratory Depth Normal Respiratory Pattern Regular Blood Pressure Blood Pressure [Left Arm] 140/71 Blood Pressure Mean Blood Pressure Mean [Left Arm] 94 Blood Pressure Position Blood Pressure Position [Left Arm] Sitting Pulse Oximetry 92 Oxygen Delivery Method Room Air Sepsis Recent Fever Within 48 Hours Sepsis New/Unexplained Change in Mental Status Sepsis Action Taken by Nursing Oxygen Flow Rate - Titration Pulse Oximetry Post Tiitration Laboratory Data 03/13/25 11:37 03/13/25 12:55 Lab Results 03/13/25 03/13/25 03/13/25 Range/Units 11:37 11:58 12:55 WBC 6.53 (4.8-10.8) K/ul RBC 4.75 (4.70-6.10) M/uL Hgb 15.0 (14.0-18.0) g/dL Hct 43.4 (42.0-52.0) % MCV 91.4 (80.0-100.0) fL MCH 31.6 (25.0-34.0) pg MCHC 34.6 (32.0-36.0) g/dL RDW Std Deviation 40.0 (36.4-46.3) fL RDW Coeff of Juan Antonio 11.9 (11.5-14.5) % Plt Count 178 (130-400) K/uL MPV 9.0 L (9.4-12.4) fL Immature Gran % (Auto) 0.3 % Neut % (Auto) 71.0 % Lymph % (Auto) 14.5 % [place] % (Auto) 12.7 % Eos % (Auto) 0.9 % Baso % (Auto) 0.6 % Neut # (Auto) 4.63 (1.40-6.50) K/uL Lymph # (Auto) 0.95 L (1.20-3.40) K/uL [place] # (Auto) 0.83 H (0.11-0.59) K/uL Eos # (Auto) 0.06 (0.00-0.50) K/uL Baso # (Auto) 0.04 (0.00-0.20) K/uL Immature Gran # (Auto) 0.02 (0.01-0.20) K/uL PT Cancelled 11.0 INR Cancelled 1.0 APTT Cancelled 30 PTT Ratio Cancelled 1.1 Sodium Cancelled 133 L Potassium Cancelled 3.7 Chloride Cancelled 99 Carbon Dioxide Cancelled 23 Anion Gap Cancelled 11 BUN Cancelled 14 Creatinine Cancelled 0.93 Est Cr Clr Drug Dosing Cancelled 109.9 eGFR Cancelled 101.92 BUN/Creatinine Ratio Cancelled 15.1 Glucose Cancelled 103 H Calcium Cancelled 8.9 Total Bilirubin Cancelled 0.8 AST Cancelled 25 ALT Cancelled 30 Alkaline Phosphatase Cancelled 76 Troponin I High Sens Cancelled 4.3 B-Natriuretic Peptide 8 (0-100) pg/ml Total Protein Cancelled 7.1 Albumin Cancelled 4.3 Globulin Cancelled 2.8 Albumin/Globulin Ratio Cancelled 1.5 Procalcitonin 0.06 (0-0.5) ng/ml SARS-CoV-2 (PCR) NEGATIVE (Negative) Influenza Type A (PCR) Negative (Neg) Influenza Type B (PCR) Negative (Neg) RSV (RT-PCR) Negative (Neg) Group A Strep (PCR) NOT DETECTED (NotDetected) Administered Medications Discontinued Medications Acetaminophen (Acetaminophen 500 Mg Tab) 1,000 mg PO NOW STA Stop: 03/13/25 12:00 Last Admin: 03/13/25 12:10 Dose: 1,000 mg Documented By: ROB Albuterol (Albut/Ipratrop 3mg/0.5mg Neb 3 Ml Vial) 12 ml NEB ONE ONE; Protocol Stop: 03/13/25 12:00 Last Admin: 03/13/25 12:15 Dose: 12 ml Documented By: EM Benzonatate (Benzonatate 100 Mg Capsule) 100 mg PO NOW ONE Stop: 03/13/25 12:00 Last Admin: 03/13/25 12:11 Dose: 100 mg Documented By: ROB Doxycycline Hyclate (Doxycycline Hyclate 100 Mg Cap) 100 mg PO NOW STA Stop: 03/13/25 13:40 Last Admin: 03/13/25 14:11 Dose: 100 mg Documented By: KIAN Guaifenesin (Guaifenesin 600 Mg Tabcr) 1,200 mg PO ONCE ONE Stop: 03/13/25 12:01 Last Admin: 03/13/25 12:09 Dose: 1,200 mg Documented By: ROB Ampicillin Sodium/Sulbactam Sodium (Unasyn) 3,000 mg in 100 mls @ 200 mls/hr IV NOW STA Stop: 03/13/25 14:08 Last Infusion: 03/13/25 15:16 Dose: Infused Documented By: sade Admin: 03/13/25 14:11 Dose: 200 mls/hr Documented By: KIAN Methylprednisolone (Methylprednisolone 125 Mg/2 Ml Vial) 60 mg IV NOW STA Stop: 03/13/25 12:00 Last Admin: 03/13/25 12:11 Dose: 60 mg Documented By: ROB Potassium Chloride (Potassium Chloride Crtab 20 Meq Tabcr) 20 meq PO NOW STA Stop: 03/13/25 14:41 Last Admin: 03/13/25 15:15 Dose: 20 meq Documented By: sade Imaging Data Radiologist's Impression: Chest X-Ray 03/13/25 11:12 XR chest 1V not portable HISTORY: 49 years-old Male Chest pain, nonspecific COMPARISON: 09/02/2024 TECHNIQUE: AP view of the chest FINDINGS: Cardiomediastinal and hilar silhouettes are within normal limits. No pneumothorax, pleural effusion or overt pulmonary edema. Mild patchy right basilar pulmonary opacities. The bones of the chest appear grossly intact. IMPRESSION: Findings suggestive of right basilar pneumonia. ACT 112: Negative or not required by law. The above report was generated using voice recognition software. It may contain grammatical, syntax or spelling errors. Electronically signed by: Jorge Vega M.D. 03/13/2025 12:00 PM Discharge Plan Visit Data Chief Complaint: Respiratory Problems Stated Complaint: CAN'T BREATHE RIGHT ED Provider: Delfino Stone Discharge Problem: Acute exacerbation of chronic obstructive airways disease, RLL pneumonia, Hypoxia Patient Disposition: Admitted As Inpatient Condition: Fair Discharge Instructions Interventions: ED Discharge Assessment Last Done: 03/13/25 16:02
[2025-03-13] MEDS: guaiFENesin 600 MG TABCR PO ONE (12:09)
[2025-03-13] MEDS: ACETAMINOPHEN 500 MG TAB PO STA (12:10)
[2025-03-13] MEDS: BENZONATATE 100 MG CAPSULE PO ONE (12:11)
[2025-03-13 12:15] LABS: Hematocrit (blood only) 43.4 % (42.0-52.0); Hemoglobin 15.0 g/dL (14.0-18.0); Immature Granulocytes # (auto) 0.02 K/uL (0.01-0.20); Immature Granulocytes % (auto) 0.3 %; Mean Corpuscular Hemoglobin 31.6 pg (25.0-34.0); Mean Corpuscular Volume 91.4 fL (80.0-100.0); Platelet Count 178 K/uL (130-400); RDW Standard Deviation 40.0 fL (36.4-46.3); Red Blood Count 4.75 M/uL (4.70-6.10); White Blood Count 6.53 K/ul (4.8-10.8)
[2025-03-13] MEDS: ALBUT/IPRATROP 3MG/0.5MG NEB 3 ML VIAL NEB ONE (12:15)
[2025-03-13 12:58] LABS: Influenza A virus by PCR Negative (Neg); Influenza B virus by PCR Negative (Neg); SARS CoV2 RNA(COVID-19) Ceph NEGATIVE (Negative)
[2025-03-13 13:23] LABS: Alanine Aminotransferase 30.0 U/L (7-52); Albumin Globulin Ratio 1.5 (0.9-2); Albumin Level 4.3 gm/dl (3.4-5.0); Alkaline Phosphatase 76.0 U/L (34-104); Anion Gap 11.0 (3-11); Bilirubin,Total 0.8 mg/dl (0.2-1.0); Blood Urea Nitrogen 14.0 mg/dl (6-23); Calcium 8.9 mg/dl (8.6-10.3); Carbon Dioxide 23.0 mmol/L (21-32); Chloride 99.0 mmol/L (98-107); Creatinine Clr Calc Pharmacy 109.9 ml/min; Globulin 2.8 gm/dl (2.5-4.0); Glucose 103.0 mg/dl (70-99(Fasting)); Potassium 3.7 mmol/L (3.5-5.1); Sodium 133.0 mmol/L (136-145); Total Protein 7.1 gm/dl (6.0-8.3)
[2025-03-13 13:32] LABS: INR 1.0 (0.9-1.1); Partial Thromboplastin Time 30 Seconds (21-31); Prothrombin Time 11.0 Seconds (9.0-12.0)
[2025-03-13] MEDS: DOXYCYCLINE HYCLATE 100 MG CAP PO STA (14:11)
[2025-03-13] MEDS: AMPICILLIN/SULBACTAM SOD 3,000 MG/100 ML BAG IV STA (14:11)
--- NOTE | 2025-03-13 14:23 | History & Physical Report ---
Date of Service March 13, 2025 Assessment & Plan (1) Acute exacerbation of chronic obstructive airways disease: (2) RLL pneumonia: Plan Mr. Melendez is a 49-year-old gentleman with a past medical history of emphysema, CAD s/p cardiac cath 11/13/2017 with PCI with LASHAY x 6 to LAD and RCA, HLD, gout, DM2, GERD admitted to [facility] for further evaluation and management of acute hypoxic respiratory failure iso emphysema and possibly community acquired pneumonia #Acute hypoxic resp failure #Right Basilar Pneumonia #Emphysema Patient has not followed with Dr. Henry (Pulm) since 2023 before PFTs obtained, denies intubation history, prior exacerbations reports 1 week of sick like symptoms progressing received unasyn/doxy for CAP iso ?cephalosporin allergy Will continue for now, consider transition to po levofloxacin as able prednisone 40mg in am duonebs, consider combivent or other rescue inhaler as well as close pulm f/u op supportive management #Sinus tachycardia likely iso acute illness iso of hypoxia checked ddimer, which is 380 #CAD s/p single drug-eluting stent implantation in an overlap fashion with the old proximal stent in mRCA 08/2024 hx of BB amanuel intolerance in 2018 with atenolol states he does not take Losartan as his "blood pressures are fine" continue to monitor and consider addition of agent vs close follow up with Cards as OP continue ASA/plavix continue imdur #familial hypercholesterolemia continue statin, zetia on praulent as OP, not due for "another week" admit med tele DVTppx lovenox Admission and Anticipated Discharge Date Admission Date: Time spent evaluating patient, direct bedside care, chart review, placing orders, interpretation of diagnostic studies, discussion with consultants, patient, and family members, as well as other required patient management activities is 75 minutes. History of Present Illness Chief Complaint: Hypoxia Primary Care Provider: [place], Mr. Melendez is a 49-year-old gentleman with a past medical history of emphysema, CAD s/p cardiac cath 11/13/2017 with PCI with LASHAY x 6 to LAD and RCA, HLD, gout, DM2, GERD presented to [facility] ED due to hypoxia at home after a week of feeling poorly. Patient states last Friday he was feeling that his throat was scratchy which then progressed to general aches/pains. He reports subjective fevers, and then today when prompted by his to check his pulse ox, he noted he was in the 80s. Patient states he has had a steady cough, nonproductive, over the last week. He reports vomiting only after coughing episode. He denies chest pain, palpitations, or other acute concerns. In the ED, vitals were notable for BP of 120-140s, HR of 90-100s, and O2 sat of low 90s on 2L NC . flu/covid/rsv negative Imaging revealed CXR with changes consistent with right basilar pneumonia EKG in 90s, normal rhythm ED interventions: gal lyons Patient to be admitted to [facility] for further evaluation and management of acute hypoxic respiratory failure iso community acquired pneumonia Allergies Allergy/AdvReac Type Severity Reaction Status Date / Time ceftriaxone Allergy Intermediate fatigue,wt Verified 09/02/24 13:41 loss, severe dehydration Home Medications Medication Instructions Recorded Confirmed Type alirocumab 75 mg/mL subcutaneous 75 mg subcut Q14D 05/24/20 03/13/25 History pen injector (Praluent Pen) aspirin 81 mg tablet,delayed 81 mg PO QAM 05/24/20 03/13/25 History release (Marshal Low Dose Aspirin) atorvastatin 80 mg tablet 80 mg PO QAM 05/24/20 03/13/25 History clopidogrel 75 mg tablet 75 mg PO QAM 05/24/20 03/13/25 History ezetimibe 10 mg tablet 10 mg PO QAM 05/24/20 03/13/25 History allopurinol 100 mg tablet 100 mg PO QAM 09/02/24 03/13/25 History metformin 500 mg tablet,extended 500 mg PO QAM 09/02/24 03/13/25 History release 24 hr isosorbide mononitrate 30 mg 30 mg PO QAM #30 tabs 09/03/24 03/13/25 Rx tablet,extended release 24 hr pantoprazole 40 mg tablet,delayed 40 mg PO DAILY #30 tabs 09/03/24 03/13/25 Rx release bupropion HCl 300 mg 24 hr tablet, 300 mg PO QAM 03/13/25 03/13/25 History extended release Past Med/Surg History Problem List (Updated 03/13/25 @ 16:36 by Delfino Stone M.D.) Hypoxia (Acute) RLL pneumonia (Acute) Acute exacerbation of chronic obstructive airways disease (Acute) Chest pain (Acute) Dyslipidemia (Chronic) History of coronary artery stent placement (Chronic) CAD (coronary artery disease) (Chronic) Medical History Dyslipidemia CAD (coronary artery disease) Surgical History History of colonoscopy History of coronary artery stent placement Social History Smoking Status: Never smoker Tobacco Type: Cigarettes and E-cigarettes / Vaping Hx Alcohol Use: No Hx Substance Use: No Preferred Language: [place]i Communication Ability: Effective Risk Control Analyst Required: No Beliefs That Will Affect Care: None marital status: Current Living Situation: Spouse and Family Feels Safe at Home: Yes Assistive Devices: None Review of Systems Review of Systems: Constitutional: (-) fever/chills, (-) recent loss of weight, (-) appetite changes, (-) night sweats. Head: (-) headache, (-) dizziness. Eye: (-) blurring of vision, (-) double vision, (-) redness. Ear: (-) hearing loss, (-) discharge, (-) vertigo Nose: (-) discharge, (-) bleeding, (-) congestion, (-) post nasal drip. Throat: (-) sore throat, (-) hoarseness of voice, (-) odynophagia. Cardiovascular: (-) chest pain, (-) palpitations, (-) syncope, (-) orthopnea, (- ) PND, (-) leg swelling. Respiratory: (+) shortness of breath, (+) cough, +) wheezing, (-) hemoptysis. Neuro: (-) weakness in extremities, (-) numbness, (-) tingling, (-) tremor. Gastrointestinal: (-) belly pain, (-) belly distension, (-) nausea, (-) vomiting, (-) diarrhea, (-) constipation, Genitourinary: (-) hematuria, (-) dysuria, (-) polyuria, (-) hesitancy, (-) frequency, (-) urinary incontinence. Musculoskeletal: (-) myalgia, (-) arthralgia. Skin: (-) rashes. Endocrine: (-) heat/cold intolerance. Psychiatry: (-) depression, (-) hallucination. Physical Exam Physical Exam: GENERAL APPEARANCE: AxOx4, appears tired, but no resp distress noted, no acute distress. HEENT: NC, AT. MMM. EOMI, clear conjunctiva, oropharynx clear. NECK: Supple without lymphadenopathy. No stiffness or restricted ROM. HEART: Normal rate and regular rhythm, normal S1/S1, no m/r/g LUNGS: CTAB, moving air well, right rhonchi with scattered wheezing ABDOMEN: Soft, nontender, nondistended with good bowel sounds heard. BACK: No CVAT, no obvious deformity. EXTREMITIES: Without cyanosis, clubbing or edema. NEUROLOGICAL: Grossly nonfocal. Alert and oriented, moving all 4 extremities. Skin: Warm and dry without any rash. Results & Data Results & Data Vital Signs (Past 12 Hours) Vital Signs Temp Pulse Pulse Resp BP BP Pulse Ox 03/13/25 13:35 109 H 20 140/71 92 03/13/25 13:35 87 L 03/13/25 12:19 88 18 94 03/13/25 12:04 98 03/13/25 12:04 98 03/13/25 12:04 91 H 17 102/73 98 03/13/25 11:08 37.4 C 93 H 18 148/96 H 95 O2 Del Method 03/13/25 13:35 Room Air 03/13/25 13:35 Room Air 03/13/25 12:19 Room Air 03/13/25 12:04 Room Air 03/13/25 12:04 Room Air 03/13/25 12:04 Room Air 03/13/25 11:08 Room Air Laboratory Results Short CBC 03/13/25 Range/Units 11:37 WBC 6.53 (4.8-10.8) K/ul Hgb 15.0 (14.0-18.0) g/dL Hct 43.4 (42.0-52.0) % Plt Count 178 (130-400) K/uL BMP 03/13/25 03/13/25 11:37 12:55 Sodium Cancelled 133 L Potassium Cancelled 3.7 Chloride Cancelled 99 Carbon Dioxide Cancelled 23 BUN Cancelled 14 Creatinine Cancelled 0.93 Glucose Cancelled 103 H Calcium Cancelled 8.9 Liver Function 03/13/25 03/13/25 Range/Units 11:37 12:55 Total Bilirubin Cancelled 0.8 AST Cancelled 25 ALT Cancelled 30 Alkaline Phosphatase Cancelled 76 Albumin Cancelled 4.3 Medications Administered Home Medications Medication Instructions Recorded Confirmed Last Taken alirocumab 75 mg/mL subcutaneous 75 mg subcut Q14D 05/24/20 03/13/25 08/31/24 pen injector (Praluent Pen) aspirin 81 mg tablet,delayed 81 mg PO QAM 05/24/20 03/13/25 09/02/24 release (Marshal Low Dose Aspirin) atorvastatin 80 mg tablet 80 mg PO QAM 05/24/20 03/13/25 09/02/24 clopidogrel 75 mg tablet 75 mg PO QAM 05/24/20 03/13/25 09/02/24 ezetimibe 10 mg tablet 10 mg PO QAM 05/24/20 03/13/25 09/02/24 allopurinol 100 mg tablet 100 mg PO QAM 09/02/24 03/13/25 09/02/24 metformin 500 mg tablet,extended 500 mg PO QAM 09/02/24 03/13/25 09/02/24 release 24 hr isosorbide mononitrate 30 mg 30 mg PO QAM #30 tabs 09/03/24 03/13/25 Unknown tablet,extended release 24 hr pantoprazole 40 mg tablet,delayed 40 mg PO DAILY #30 tabs 09/03/24 03/13/25 Unknown release bupropion HCl 300 mg 24 hr tablet, 300 mg PO QAM 03/13/25 03/13/25 Unknown extended release
[2025-03-13] MEDS: POTASSIUM CHLORIDE CRTAB 20 MEQ TABCR PO STA (15:15)
[2025-03-13] MEDS ORDERED: ACETAMINOPHEN 325 MG TAB PO PRN (16:15)
[2025-03-13] MEDS ORDERED: MELATONIN 3 MG TAB PO PRN (16:15)
[2025-03-13] MEDS: COUGH DROP (SUGAR FREE) LOZ 24 LOZ/1 BOX BUCCAL PRN (19:43)
[2025-03-13] MEDS: AMPICILLIN/SULBACTAM SOD 3,000 MG/100 ML BAG IV SCH (19:49)
[2025-03-13] MEDS: ALBUT/IPRATROP 3MG/0.5MG NEB 3 ML VIAL NEB SCH (19:52)
[2025-03-13] MEDS: BENZONATATE 100 MG CAPSULE PO SCH (20:39)
[2025-03-13] MEDS: DOXYCYCLINE HYCLATE 100 MG CAP PO SCH (20:39)
[2025-03-13] MEDS: ENOXAPARIN INJ 40 MG/0.4 ML SYR SQ SCH (20:40)
[2025-03-13] MEDS: guaiFENesin 600 MG TABCR PO SCH (20:40)
[2025-03-14] MEDS: predniSONE 20 MG TAB PO SCH (07:59)
[2025-03-14] MEDS: ATORVASTATIN 40 MG TAB PO SCH (08:00)
[2025-03-14] MEDS: ISOSORBIDE MONO EXTENDED REL 30 MG TABCR PO SCH (08:00)
[2025-03-14] MEDS: CLOPIDOGREL BISULFATE 75 MG TAB PO SCH (08:00)
[2025-03-14] MEDS: EZETIMIBE 10 MG TAB PO SCH (08:00)
[2025-03-14] MEDS: ASPIRIN 81 MG ECTAB PO SCH (08:01)
--- NOTE | 2025-03-14 08:35 | Electrocardiogram Report ---
Test Reason : Blood Pressure : */* mmHG Vent. Rate : 93 BPM Atrial Rate : 93 BPM P-R Int : 150 ms QRS Dur : 78 ms QT Int : 354 ms P-R-T Axes : 41 40 27 degrees QTcB Int : 440 ms Normal sinus rhythm Normal ECG When compared with ECG of 03-Sep-2024 04:24, Premature ventricular complexes are no longer Present Vent. rate has increased by 33 bpm Confirmed by Dianna Rausch ([id number]) on 03/14/2025 8:35:40 AM Referred By: REFERRED SELF Confirmed By: Dianna Rausch
[2025-03-14 23:01] LABS: Chlamydia pneumoniae PCR Not Detected (NotDetected); Coronavirus 229E PCR Not Detected (NotDetected); Coronavirus CoV-2 (COVID19)PCR Not Detected (NotDetected); Coronavirus HKU1 PCR Not Detected (NotDetected); Coronavirus NL63 PCR Not Detected (NotDetected); Coronavirus OC43PCR Not Detected (NotDetected); Human Metapneumovirus PCR Not Detected (NotDetected); Parainfluenza Virus 1 PCR Not Detected (NotDetected); Parainfluenza Virus 2 PCR Not Detected (NotDetected); Parainfluenza Virus 3 PCR Not Detected (NotDetected); Parainfluenza Virus 4 PCR Not Detected (NotDetected); Respiratory Syncytial VirusPCR Not Detected (NotDetected); Rhinovirus/Enterovirus PCR Not Detected (NotDetected)
[2025-03-15 07:50] VITALS: BP 120/72; TEMP 97.7
--- NOTE | 2025-03-15 11:37 | Hospitalist Progress Note ---
Date of Service March 15, 2025 Delayed Progress note for 03/14/2025 Assessment & Plan (1) Acute exacerbation of chronic obstructive airways disease: (2) RLL pneumonia: Plan Mr. Melendez is a 49-year-old gentleman with a past medical history of emphysema, CAD s/p cardiac cath 11/13/2017 with PCI with LASHAY x 6 to LAD and RCA, HLD, gout, DM2, GERD admitted to [facility] for further evaluation and management of acute hypoxic respiratory failure iso emphysema and possibly community acquired pneumonia #Acute hypoxic resp failure #Right Basilar Pneumonia #Emphysema Patient has not followed with Dr. Henry (Pulm) since 2023 before PFTs obtained, denies intubation history, prior exacerbations reports 1 week of sick like symptoms progressing received unasyn/doxy for CAP iso ?cephalosporin allergy Will continue for now, consider transition to po levofloxacin as able prednisone 40mg in am duonebs, consider combivent or other rescue inhaler as well as close pulm f/u op Clinically little better since admission Remains afebrile #Sinus tachycardia likely iso acute illness iso of hypoxia checked ddimer, which is 380 Remains minimally tachycardic Advised to drink more fluid #CAD s/p single drug-eluting stent implantation in an overlap fashion with the old proximal stent in mRCA 08/2024 hx of BB amanuel intolerance in 2018 with atenolol states he does not take Losartan as his "blood pressures are fine" continue to monitor and consider addition of agent vs close follow up with Cards as OP continue ASA/plavix continue imdur Denies any cardiac symptoms #familial hypercholesterolemia continue statin, zetia on praulent as OP, not due for "another week" admit med tele DVTppx lovenox Admission and Anticipated Discharge Date Admission Date: March 13, 2025 Subjective 03/14/2025 The patient was seen and examined in medical telemetry unit He has been complaining of cough with minimal wheezing His shortness of breath is improved a little bit Review of Systems Review of Systems: All systems reviewed and are unremarkable except as noted below Physical Exam Physical Exam: Lying in bed without any acute distress Constitutional: well developed, well nourished and + ill appearing Eyes: PERRL, conjunctivae normal, anicteric sclerae ENMT: external ear and nose normal, oropharynx normal Neck: trachea midline, no thyromegaly Respiratory: + respiratory distress ( minimal distres s at rest) Auscultation: lungs clear to auscultation bilaterally Cardiovascular: Rate/Rhythm: regular rate, regular rhythm and + tachycardic Heart Sounds: normal S1 and normal S2; no murmur Extremities: no edema Gastrointestinal (Abdomen): Inspection/Auscultation: normal bowel sounds; abdomen not distended Percussion/Palpation: abdomen soft; abdomen nontender Musculoskeletal: No acute arthritis involving any of the joint Neurologic: normal touch/pain/proprioception and moves all extremities; no focal motor deficits Psychiatric: A+Ox3, euthymic affect Lymphatic: no cervical or axillary lymphadenopathy Results & Data Results & Data Vital Signs (Past 12 Hours) Vital Signs Temp Pulse Pulse Pulse Pulse Resp Resp 03/15/25 10:57 03/15/25 10:07 106 H 92 H 22 03/15/25 07:49 36.5 C 73 18 03/15/25 07:36 70 03/15/25 07:28 76 18 03/15/25 02:09 36.4 C L 71 16 Resp BP Pulse Ox Pulse Ox Pulse Ox O2 Del Method O2 Flow Rate 03/15/25 10:57 Nasal Cannula 2 03/15/25 10:07 18 93 94 03/15/25 07:49 120/72 95 Room Air 03/15/25 07:36 03/15/25 07:28 95 Nasal Cannula 2 03/15/25 02:09 122/61 95 Nasal Cannula 2 Medications Administered Current Inpatient Medications Acetaminophen (Acetaminophen 325 Mg Tab) 650 mg PO Q4H PRN PRN Reason: Pain or Fever Stop: 04/12/25 16:14 Albuterol (Albut/Ipratrop 3mg/0.5mg Neb 3 Ml Vial) 3 ml NEB Q6R [facility]; Protocol Stop: 04/12/25 18:59 Last Admin: 03/15/25 07:28 Dose: 3 ml Allopurinol (Allopurinol 100 Mg Tab) 100 mg PO [facility] Stop: 04/13/25 08:59 Last Admin: 03/15/25 08:16 Dose: 100 mg Aspirin (Aspirin 81 Mg Ectab) 81 mg PO [facility] Stop: 04/13/25 08:59 Last Admin: 03/15/25 08:15 Dose: 81 mg Atorvastatin Calcium (Atorvastatin 40 Mg Tab) 80 mg PO [facility] Stop: 04/13/25 08:59 Last Admin: 03/15/25 08:16 Dose: 80 mg Benzonatate (Benzonatate 100 Mg Capsule) 100 mg PO TID [facility] Stop: 04/12/25 20:59 Last Admin: 03/15/25 08:15 Dose: 100 mg Bupropion HCl (Bupropion Xl 300 Mg Tabcr) [facility] Stop: 04/13/25 08:59 Last Admin: 03/15/25 08:16 Dose: 300 mg Clopidogrel Bisulfate (Clopidogrel Bisulfate 75 Mg Tab) 75 mg PO QAM [facility] Stop: 04/13/25 08:59 Last Admin: 03/15/25 08:15 Dose: 75 mg Doxycycline Hyclate (Doxycycline Hyclate 100 Mg Cap) 100 mg PO BID [facility] Stop: 03/18/25 20:59 Last Admin: 03/15/25 08:15 Dose: 100 mg Ezetimibe (Ezetimibe 10 Mg Tab) 10 mg PO [facility] Stop: 04/13/25 08:59 Last Admin: 03/15/25 08:15 Dose: 10 mg Enoxaparin Sodium (Enoxaparin Inj 40 Mg/0.4 Ml Syr) 40 mg SQ HS [facility] Stop: 04/12/25 20:59 Last Admin: 03/14/25 20:24 Dose: Not Given Guaifenesin (Guaifenesin 600 Mg Tabcr) 1,200 mg PO Q12 [facility] Stop: 04/12/25 20:59 Last Admin: 03/15/25 08:16 Dose: 1,200 mg Ampicillin Sodium/Sulbactam Sodium (Unasyn) 3,000 mg in 100 mls @ 200 mls/hr IV Q6H [facility] Stop: 03/18/25 19:59 Last Infusion: 03/15/25 09:53 Dose: Infused Isosorbide Mononitrate (Isosorbide [place] Extended Rel 30 Mg Tabcr) [facility] Stop: 04/13/25 08:59 Last Admin: 03/15/25 08:16 Dose: 30 mg Melatonin (Melatonin 3 Mg Tab) 3 mg PO HS PRN PRN Reason: Sleep Stop: 04/12/25 16:14 Menthol (Cough Drop (Sugar Free) Lynn 24 Lynn/1 Box) 1 lynn BUCCAL Q2H PRN PRN Reason: Sore Throat Stop: 04/12/25 19:08 Last Admin: 03/13/25 19:43 Dose: 1 lynn Pantoprazole Sodium (Pantoprazole 40 Mg Tab) 40 mg PO DAILY [facility] Stop: 04/13/25 08:59 Last Admin: 03/15/25 08:15 Dose: 40 mg Prednisone (Prednisone 20 Mg Tab) 40 mg PO QAM [facility] Stop: 04/13/25 08:59 Last Admin: 03/15/25 08:15 Dose: 40 mg
--- NOTE | 2025-03-15 11:42 | Hospitalist Progress Note ---
Date of Service March 15, 2025 Assessment & Plan (1) Acute exacerbation of chronic obstructive airways disease: (2) RLL pneumonia: Plan Mr. Melendez is a 49-year-old gentleman with a past medical history of emphysema, CAD s/p cardiac cath 11/13/2017 with PCI with LASHAY x 6 to LAD and RCA, HLD, gout, DM2, GERD admitted to [facility] for further evaluation and management of acute hypoxic respiratory failure iso emphysema and possibly community acquired pneumonia #Acute hypoxic resp failure #Right Basilar Pneumonia #Emphysema Patient has not followed with Dr. Henry (Pulm) since 2023 before PFTs obtained, denies intubation history, prior exacerbations reports 1 week of sick like symptoms progressing received unasyn/doxy for CAP iso ?cephalosporin allergy Will continue for now, consider transition to po levofloxacin as able prednisone 40mg in am duonebs, consider combivent or other rescue inhaler as well as close pulm f/u op Clinically little better since admission Remains afebrile his [employer] came back positive for adenovirus Much improved with decrease in cough and shortness of breath Has had 2 step O2 saturation and he does not require any oxygen He will be discharged this afternoon on oral antibiotic to finish the course #Sinus tachycardia likely iso acute illness iso of hypoxia checked ddimer, which is 380 Remains minimally tachycardic Advised to drink more fluid #CAD s/p single drug-eluting stent implantation in an overlap fashion with the old proximal stent in mRCA 08/2024 hx of BB amanuel intolerance in 2018 with atenolol states he does not take Losartan as his "blood pressures are fine" continue to monitor and consider addition of agent vs close follow up with Cards as OP continue ASA/plavix continue imdur Denies any cardiac symptoms #familial hypercholesterolemia continue statin, zetia on praulent as OP, not due for "another week" admit med tele DVTppx lovenox Admission and Anticipated Discharge Date Admission Date: March 13, 2025 Subjective 03/14/2025 The patient was seen and examined in medical telemetry unit He has been complaining of cough with minimal wheezing His shortness of breath is improved a little bit 03/15/2025 The patient was seen and examined in medical telemetry unit He is much better today and does not require any oxygen to maintain saturation His cough is improved and denies any shortness of breath at rest Review of Systems Review of Systems: All systems reviewed and are unremarkable except as noted below Physical Exam Physical Exam: Lying in bed without any acute distress Constitutional: well developed, well nourished and + ill appearing Eyes: PERRL, conjunctivae normal, anicteric sclerae ENMT: external ear and nose normal, oropharynx normal Neck: trachea midline, no thyromegaly Respiratory: + respiratory distress ( minimal distres s at rest) Auscultation: lungs clear to auscultation bilaterally Cardiovascular: Rate/Rhythm: regular rate, regular rhythm and + tachycardic Heart Sounds: normal S1 and normal S2; no murmur Extremities: no edema Gastrointestinal (Abdomen): Inspection/Auscultation: normal bowel sounds; abdomen not distended Percussion/Palpation: abdomen soft; abdomen nontender Neurologic: normal touch/pain/proprioception and moves all extremities; no focal motor deficits Psychiatric: A+Ox3, euthymic affect Lymphatic: no cervical or axillary lymphadenopathy Results & Data Results & Data Vital Signs (Past 12 Hours) Vital Signs Temp Pulse Pulse Pulse Pulse Resp Resp 03/15/25 10:57 03/15/25 10:07 106 H 92 H 22 03/15/25 07:49 36.5 C 73 18 03/15/25 07:36 70 03/15/25 07:28 76 18 03/15/25 02:09 36.4 C L 71 16 Resp BP Pulse Ox Pulse Ox Pulse Ox O2 Del Method O2 Flow Rate 03/15/25 10:57 Nasal Cannula 2 03/15/25 10:07 18 93 94 03/15/25 07:49 120/72 95 Room Air 03/15/25 07:36 03/15/25 07:28 95 Nasal Cannula 2 03/15/25 02:09 122/61 95 Nasal Cannula 2 Medications Administered Current Inpatient Medications Acetaminophen (Acetaminophen 325 Mg Tab) 650 mg PO Q4H PRN PRN Reason: Pain or Fever Stop: 04/12/25 16:14 Albuterol (Albut/Ipratrop 3mg/0.5mg Neb 3 Ml Vial) 3 ml NEB Q6R [facility]; Protocol Stop: 04/12/25 18:59 Last Admin: 03/15/25 07:28 Dose: 3 ml Allopurinol (Allopurinol 100 Mg Tab) 100 mg PO QAM [facility] Stop: 04/13/25 08:59 Last Admin: 03/15/25 08:16 Dose: 100 mg Aspirin (Aspirin 81 Mg Ectab) 81 mg PO [facility] Stop: 04/13/25 08:59 Last Admin: 03/15/25 08:15 Dose: 81 mg Atorvastatin Calcium (Atorvastatin 40 Mg Tab) 80 mg PO [facility] Stop: 04/13/25 08:59 Last Admin: 03/15/25 08:16 Dose: 80 mg Benzonatate (Benzonatate 100 Mg Capsule) 100 mg PO TID [facility] Stop: 04/12/25 20:59 Last Admin: 03/15/25 08:15 Dose: 100 mg Bupropion HCl (Bupropion Xl 300 Mg Tabcr) 300 mg PO [facility] Stop: 04/13/25 08:59 Last Admin: 03/15/25 08:16 Dose: 300 mg Clopidogrel Bisulfate (Clopidogrel Bisulfate 75 Mg Tab) 75 mg PO [facility] Stop: 04/13/25 08:59 Last Admin: 03/15/25 08:15 Dose: 75 mg Doxycycline Hyclate (Doxycycline Hyclate 100 Mg Cap) 100 mg PO BID [facility] Stop: 03/18/25 20:59 Last Admin: 03/15/25 08:15 Dose: 100 mg Ezetimibe (Ezetimibe 10 Mg Tab) 10 mg PO [facility] Stop: 04/13/25 08:59 Last Admin: 03/15/25 08:15 Dose: 10 mg Enoxaparin Sodium (Enoxaparin Inj 40 Mg/0.4 Ml Syr) 40 mg SQ HS [facility] Stop: 04/12/25 20:59 Last Admin: 03/14/25 20:24 Dose: Not Given Guaifenesin (Guaifenesin 600 Mg Tabcr) 1,200 mg PO Q12 [facility] Stop: 04/12/25 20:59 Last Admin: 03/15/25 08:16 Dose: 1,200 mg Ampicillin Sodium/Sulbactam Sodium (Unasyn) 3,000 mg in 100 mls @ 200 mls/hr IV Q6H [facility] Stop: 03/18/25 19:59 Last Infusion: 03/15/25 09:53 Dose: Infused Isosorbide Mononitrate (Isosorbide [place] Extended Rel 30 Mg Tabcr) 30 mg PO [facility] Stop: 04/13/25 08:59 Last Admin: 03/15/25 08:16 Dose: 30 mg Melatonin (Melatonin 3 Mg Tab) 3 mg PO HS PRN PRN Reason: Sleep Stop: 04/12/25 16:14 Menthol (Cough Drop (Sugar Free) Lynn 24 Lynn/1 Box) 1 lynn BUCCAL Q2H PRN PRN Reason: Sore Throat Stop: 04/12/25 19:08 Last Admin: 03/13/25 19:43 Dose: 1 lynn Pantoprazole Sodium (Pantoprazole 40 Mg Tab) 40 mg PO DAILY [facility] Stop: 04/13/25 08:59 Last Admin: 03/15/25 08:15 Dose: 40 mg Prednisone (Prednisone 20 Mg Tab) 40 mg PO QAM [facility] Stop: 04/13/25 08:59 Last Admin: 03/15/25 08:15 Dose: 40 mg
[2025-03-15 12:10] VITALS: RESP 16; O2SAT 92
[2025-03-15 12:10] LABS: Hematocrit (blood only) 37.6 % (42.0-52.0); Hemoglobin 13.2 g/dL (14.0-18.0); Immature Granulocytes # (auto) 0.04 K/uL (0.01-0.20); Immature Granulocytes % (auto) 0.4 %; Mean Corpuscular Hemoglobin 31.7 pg (25.0-34.0); Mean Corpuscular Volume 90.2 fL (80.0-100.0); Platelet Count 189 K/uL (130-400); RDW Standard Deviation 40.6 fL (36.4-46.3); Red Blood Count 4.17 M/uL (4.70-6.10); White Blood Count 10.82 K/ul (4.8-10.8)
[2025-03-15 12:24] LABS: Anion Gap 7.0 (3-11); Blood Urea Nitrogen 18.0 mg/dl (6-23); Calcium 9.0 mg/dl (8.6-10.3); Carbon Dioxide 25.0 mmol/L (21-32); Chloride 105.0 mmol/L (98-107); Creatinine Clr Calc Pharmacy 112.3 ml/min; Glucose 121.0 mg/dl (70-99(Fasting)); Potassium 3.9 mmol/L (3.5-5.1); Sodium 137.0 mmol/L (136-145)
[2025-03-15 15:23] VITALS: PULSE 99
--- NOTE | 2025-03-15 16:28 | Discharge Summary ---
Date of Service March 15, 2025 Admission HPI Per Admitting Provider Mr. Melendez is a 49-year-old gentleman with a past medical history of emphysema, CAD s/p cardiac cath 11/13/2017 with PCI with LASHAY x 6 to LAD and RCA, HLD, gout, DM2, GERD presented to [facility] ED due to hypoxia at home after a week of feeling poorly. Patient states last Friday he was feeling that his throat was scratchy which then progressed to general aches/pains. He reports subjective fevers, and then today when prompted by his to check his pulse ox, he noted he was in the 80s. Patient states he has had a steady cough, nonproductive, over the last week. He reports vomiting only after coughing episode. He denies chest pain, palpitations, or other acute concerns. In the ED, vitals were notable for BP of 120-140s, HR of 90-100s, and O2 sat of low 90s on 2L NC . flu/covid/rsv negative Imaging revealed CXR with changes consistent with right basilar pneumonia EKG in 90s, normal rhythm ED interventions: unasyn, doxy Patient to be admitted to [facility] for further evaluation and management of acute hypoxic respiratory failure iso community acquired pneumonia Admission Exam Per Admitting Provider Physical Exam: GENERAL APPEARANCE: AxOx4, appears tired, but no resp distress noted, no acute distress. HEENT: NC, AT. MMM. EOMI, clear conjunctiva, oropharynx clear. NECK: Supple without lymphadenopathy. No stiffness or restricted ROM. HEART: Normal rate and regular rhythm, normal S1/S1, no m/r/g LUNGS: CTAB, moving air well, right rhonchi with scattered wheezing ABDOMEN: Soft, nontender, nondistended with good bowel sounds heard. BACK: No CVAT, no obvious deformity. EXTREMITIES: Without cyanosis, clubbing or edema. NEUROLOGICAL: Grossly nonfocal. Alert and oriented, moving all 4 extremities. Skin: Warm and dry without any rash. Principal Diagnosis Community-acquired pneumonia, emphysema Discharge Exam Lying in bed without any acute distress Constitutional well developed, well nourished and + ill appearing Eyes PERRL, conjunctivae normal, anicteric sclerae ENMT external ear and nose normal, oropharynx normal Neck trachea midline, no thyromegaly Respiratory + respiratory distress ( minimal distress at rest) Auscultation: lungs clear to auscultation bilaterally Cardiovascular Rate/Rhythm: regular rate, regular rhythm and + tachycardic Heart Sounds: normal S1 and normal S2; no murmur Extremities: no edema Gastrointestinal (Abdomen) Inspection/Auscultation: normal bowel sounds; abdomen not distended Percussion/Palpation: abdomen soft; abdomen nontender Neurologic normal touch/pain/proprioception and moves all extremities; no focal motor deficits Psychiatric A+Ox3, euthymic affect Lymphatic no cervical or axillary lymphadenopathy Discharge Data Allergies Allergy/AdvReac Type Severity Reaction Status Date / Time ceftriaxone Allergy Intermediate fatigue,wt Verified 09/02/24 13:41 loss, severe dehydration Consultations 03/13/25 14:06 ED Decision to Admit Stat Hospital Course (1) Acute exacerbation of chronic obstructive airways disease: (2) RLL pneumonia: Plan Mr. Melendez is a 49-year-old gentleman with a past medical history of emphysema, CAD s/p cardiac cath 11/13/2017 with PCI with LASHAY x 6 to LAD and RCA, HLD, gout, DM2, GERD admitted to [facility] for further evaluation and management of acute hypoxic respiratory failure iso emphysema and possibly community acquired pneumonia #Acute hypoxic resp failure #Right Basilar Pneumonia #Emphysema Patient has not followed with Dr. Henry (Pulm) since 2023 before PFTs obtained, denies intubation history, prior exacerbations reports 1 week of sick like symptoms progressing received unasyn/doxy for CAP iso ?cephalosporin allergy Will continue for now, consider transition to po levofloxacin as able prednisone 40mg in am duonebs, consider combivent or other rescue inhaler as well as close pulm f/u op Clinically little better since admission Remains afebrile his BioFire came back positive for adenovirus Much improved with decrease in cough and shortness of breath Has had 2 step O2 saturation and he does not require any oxygen He will be discharged this afternoon on oral antibiotic to finish the course #Sinus tachycardia likely iso acute illness iso of hypoxia checked ddimer, which is 380 Remains minimally tachycardic Advised to drink more fluid #CAD s/p single drug-eluting stent implantation in an overlap fashion with the old proximal stent in mRCA 08/2024 hx of BB amanuel intolerance in 2018 with atenolol states he does not take Losartan as his "blood pressures are fine" continue to monitor and consider addition of agent vs close follow up with Cards as OP continue ASA/plavix continue imdur Denies any cardiac symptoms #familial hypercholesterolemia continue statin, zetia on praulent as OP, not due for "another week" admit med tele DVTppx lovenox Total Time Total Time Spent Total Time Spent (In Minutes): 35 Minutes Discharge Plan Discharge Items Patient Disposition: Home - Self-Care Reason For Visit: CAP Discharge Diagnosis: Community-acquired pneumonia, emphysema Condition on Discharge: Good Activity: Resume your previous activity Non-emergency contact: Primary Care Provider Call non-emergency contact if: you have any medication questions and your symptoms worsen Follow-up/Referrals: Morris Park DO [Primary Care Provider] - (Date & Time 03/22/2025 10:00 AM Provider: Yeni Reilly DO [facility] ) Diet: Regular Addtl Attending Provider Instructions: Please finish the course of antibiotic You can try [id number] cough medicine and also artificial tear drops for your eyes Please keep your appointment with a healthcare provider Pending Studies at Discharge: No Stand-Alone Forms: My [employer], Work/School Release, Smoking Cessation Medications and DC Order Prescriptions: New doxycycline hyclate 100 mg Capsule 100 mg PO BID Qty: 10 0RF benzonatate 100 mg Capsule 100 mg PO TID Qty: 30 0RF prednisone 20 mg Tablet 40 mg PO QAM Qty: 6 0RF amoxicillin-pot clavulanate 875-125 mg tablet 1 tab PO BID Qty: 10 0RF albuterol sulfate 90 mcg/actuation HFA aerosol inhaler 2 inh inhalation Q6H PRN (Reason: shortness of breath or wheezing) Qty: 8.5 0RF Continued atorvastatin 80 mg tablet 80 mg PO QAM clopidogrel 75 mg tablet 75 mg PO QAM aspirin [Marshal Low Dose Aspirin] 81 mg Tablet,Delayed Release (Dr/Ec) 81 mg PO QAM ezetimibe 10 mg tablet 10 mg PO QAM Praluent Pen 75 mg/mL pen injector 75 mg SUBCUT Q14D allopurinol 100 mg tablet 100 mg PO QAM metformin 500 mg tablet extended release 24 hr 500 mg PO QAM isosorbide mononitrate 30 mg Tablet Extended Release 24 Hr 30 mg PO QAM Qty: 30 0RF bupropion HCl 300 mg tablet extended release 24 hr 300 mg PO QAM pantoprazole 40 mg Tablet,Delayed Release (Dr/Ec) 40 mg PO DAILY Qty: 30 1RF Discharge Orders: Discharge Order (Routine); Ordered 03/15/25 Ordered By: Aida Grullon Admission Data Admit Date/Time: 03/13/25 14:35 Attending Provider: Aida Grullon Admit Provider: Nicole Singh Primary Care Provider: Morris Park Other Providers: Nicole Singh Other Interventions: Discharge Summary Assessment (RN) Last Done: 03/15/25 13:57
== END 2025-03-15 15:08 | disposition home or self-care (01) | DRG 193 ==
LOC: ED 10:52 → SUATTDRO 14:35 → 2N 14:35

== ENCOUNTER 2025-03-18 12:13 | Inpatient (IN) ==
--- NOTE | 2025-03-18 13:11 | XRay Report ---
XR chest 2V PA/lateral HISTORY: 49 years-old Male sob, pneumonia acute shortness of breath COMPARISON: 03/13/2025 TECHNIQUE: PA and lateral views of the chest FINDINGS: Cardiomediastinal and hilar silhouettes are within normal limits. Coronary arterial stenting. No pneu mothorax, pleural effusion, airspace consolidation or pulmonary edema. Bones of the chest appear tramaine sly intact. IMPRESSION: No acute process. ACT 112: Negative or not required by law. The above report was generated using voice recognition software. It may contain grammatical, syntax o r spelling errors. Electronically signed by: Jorge Vega M.D. 03/18/2025 1:08 PM
[2025-03-18 13:26] LABS: Hematocrit (blood only) 41.8 % (42.0-52.0); Hemoglobin 14.7 g/dL (14.0-18.0); Immature Granulocytes # (auto) 0.25 K/uL (0.01-0.20); Immature Granulocytes % (auto) 2.2 %; Mean Corpuscular Hemoglobin 31.3 pg (25.0-34.0); Mean Corpuscular Volume 88.9 fL (80.0-100.0); Platelet Count 259 K/uL (130-400); RDW Standard Deviation 39.1 fL (36.4-46.3); Red Blood Count 4.70 M/uL (4.70-6.10); White Blood Count 11.33 K/ul (4.8-10.8)
[2025-03-18 13:44] LABS: Alanine Aminotransferase 43.0 U/L (7-52); Albumin Globulin Ratio 1.2 (0.9-2); Albumin Level 3.8 gm/dl (3.4-5.0); Alkaline Phosphatase 76.0 U/L (34-104); Anion Gap 7.0 (3-11); Bilirubin,Total 0.6 mg/dl (0.2-1.0); Blood Urea Nitrogen 16.0 mg/dl (6-23); Calcium 9.5 mg/dl (8.6-10.3); Carbon Dioxide 26.0 mmol/L (21-32); Chloride 104.0 mmol/L (98-107); Creatinine Clr Calc Pharmacy 97.2 ml/min; Globulin 3.2 gm/dl (2.5-4.0); Glucose 127.0 mg/dl (70-99(Fasting)); Potassium 4.1 mmol/L (3.5-5.1); Sodium 137.0 mmol/L (136-145); Total Protein 7.0 gm/dl (6.0-8.3)
[2025-03-18] MEDS: OPTIRAY 320 125ml IV ONE (13:52)
--- NOTE | 2025-03-18 14:27 | CT Scan Report ---
CT angio chest PE protocol CT DOSE: 824.25 mGy.cm HISTORY: 49 years-old Male with PE. Acute shortness of breath with hypoxia TECHNIQUE: Multiple CTA images of the chest were obtained after the intravenous administration of 112 ml Optiray. Coronal and sagittal MIPS were obtained from the axial data set and were submitted for review. All measurements were obtained according to NASCET criteria. A dose lowering technique was u tilized adhering to the principles of ALARA. COMPARISON: Chest radiographs of same FINDINGS: CTA: Heart is normal in size. No pericardial effusion. Moderate age advanced coronary arterial calcificati ons. No thoracic aortic aneurysm or dissection. There is mild atherosclerosis of the thoracic aorta. No central pulmonary emboli are seen, evaluation is limited secondary to respiratory motion. CT CHEST: Unremarkable thyroid. Borderline enlarged subcarinal lymph nodes measure up to 11 mm. These are nonsp ecific. No pneumothorax, pleural effusion or overt pulmonary edema. Mild patchy ground glass and nodu lar airspace opacities are most pronounced in the lower lobes. Mild associated bronchial wall thicken ing. Mild pulmonary emphysema. Central airways appear patent. The imaged upper abdominal structures are normal. The osseous structures appear intact. IMPRESSION: 1. No pulmonary emboli identified. 2. Patchy lower lobe predominate opacities are suggestive of multifocal bronchopneumonia. 3. Emphysema. 4. Mild likely reactive mediastinal lymphadenopathy. 5. Age advanced coronary arterial calcifications. ACT 112: Negative or not required by law. The above report was generated using voice recognition software. It may contain grammatical, syntax o r spelling errors. Electronically signed by: Jorge Vega M.D. 03/18/2025 2:26 PM
[2025-03-18] MEDS: SODIUM CHLORIDE 0.9% 1,000 ML IV ONE (14:46)
[2025-03-18] MEDS: ALBUT/IPRATROP 3MG/0.5MG NEB 3 ML VIAL NEB STA (14:46)
--- NOTE | 2025-03-18 15:01 | Emergency Department Note ---
Impression & Plan Bilateral lower lobe pneumonia, Hypoxia ED Provider Note CHIEF COMPLAINT: Low oxygen HISTORY OF PRESENTING ILLNESS: Patient is a 49-year-old male who presents to the emergency department today for complaints of low oxygen. His pulse ox at home was reading in the low 80s while sitting around. He was recently hospitalized and discharged on 03/15/2025 for right lower lobe pneumonia. He had received IV antibiotics and was discharged home on Augmentin and doxycycline. He reports taking both medications as prescribed and still has a significant course left. He states that over the past few days he has slowly just felt worse and does not feel that he is improving. Patient significant other is at the bedside demanding that he is jaundiced. On arrival here his oxygen was noted to be 84% on room air. Patient denies chest pain, breathing difficulties, abdominal pain, headache, fevers/chills. REVIEW OF SYSTEMS: See HPI for pertinent positives and pertinent negatives. ALLERGIES: See below MEDICATIONS: See below PAST MEDICAL HISTORY: See below PHYSICAL EXAM: VITALS: Vitals are noted on the nurse's note and reviewed by myself. GENERAL: Non toxic, in no acute distress, non-diaphoretic. SKIN: No jaundice noted. No rashes, erythema, swelling. Capillary refill <2 sec. EYES: PERRLA. EOMI. Conjunctivae without injection, sclerae without icterus. NOSE: Patent without discharge. MOUTH: Mucous membranes moist. Uvula midline. Airway patent. NECK: Supple without nuchal rigidity. HEART: Regular rate and rhythm without murmurs gallops or rubs. LUNGS: Clear to auscultation bilaterally without wheezes, rales or rhonchi. No retractions or accessory muscle use. Cough is present. ABDOMEN: Positive bowel sounds x 4. Normal tympanic percussion. Soft, nontender to palpation. MUSCULOSKELETAL: No gross musculoskeletal defects. NEURO: Patient was alert and oriented. No focal neurological deficits. DIFFERENTIAL DIAGNOSIS: Differential diagnosis includes acute coronary syndrome, pulmonary embolism, pneumothorax, pericarditis, myocarditis, endocarditis, anxiety, musculoskeletal pain, GERD, costochondritis, pneumonia, among others. ED COURSE AND MEDICAL DECISION MAKING: HISTORY FROM INDEPENDENT HISTORIAN: History was provided by the patient and his significant other at bedside who is secondary historian. MONITOR: Continuous lunchroom monitor: Order was placed for continuous lunchroom monitor. Patient was placed on the lunchroom monitor and continuous pulse ox. Patient was noted to be in normal sinus rhythm at an initial rate of 84 bpm per my interpretation. EKG: EKG was interpreted by myself as normal sinus rhythm at a rate of 87 bpm. INTERPRETATION OF LABS: I interpreted the labs with full lab results as below in the lab section of this note. Laboratory results pertinent to the emergent complaint are discussed in the MDM section below. The patient was advised to follow up with their PCP and/or specialist(s) for further outpatient monitoring and management of any abnormal results. INTERPRETATION OF IMAGING: Imaging studies were interpreted by myself and read by radiology as per the imaging section of this note. The patient was advised to follow up with their PCP and/or specialist(s) for further outpatient management of any non-emergent abnormal findings. CHRONIC MEDICAL/SOCIAL CONDITIONS AFFECTING CARE: No social concerns were identified as barriers to patients care. ESCALATION OF CARE CONSIDERED: I considered admission on this patient due to persistent pneumonia and hypoxia. CONSULTATIONS: I had a meaningful discussion about this patient with Dr. Rocha who agrees with my assessment and the treatment plan. I also consulted with Jody Dhaliwal with the hospitalist for admission. The patient was accepted. SUMMARY: I examined the patient for complaints of shortness of breath and low oxygen. A physical exam and history were performed. Nursing notes, EMR, and medication list were personally reviewed. This patient presents with dyspnea and hypoxia, most likely secondary to pneumonia and emphysema history. Presentation not consistent with acute cardiac etiologies to include ACS as EKG is without signs of ischemia and troponin was 2.7. CT scan ordered and showed bilateral lower lobe pneumonia without any pulmonary emboli. There is emphysema present and mild likely reactive mediastinal lymphadenopathy. CBC with mild leukocytosis. No anemia or thrombocytopenia. CMP is without emergent findings procalcitonin was negative. Urinalysis pending on admission. I spoke with Jody Dhaliwal who accepts patient for admission. DIAGNOSIS: Bilateral lower lobe pneumonia, hypoxia TREATMENT PLAN/DISCHARGE INSTRUCTIONS: Admit to hospitalist services. We know you have several options for emergency care. Thank you for choosing [facility]. You have been examined and treated today on an emergency basis only. Your workup in the ER did not reveal the need for further emergency workup/treatment or admission at this time. However, this ER visit is not a substitute for, or an effort to provide, complete comprehensive medical care. It is impossible to recognize and treat all injuries or illnesses in a single emergency department visit. It is therefore important that you follow up closely with your family doctor and/or your specialist(s) if applicable for further outpatient evaluation and treatment. It is also important that you follow-up with your family doctor and/or your specialist(s) for further monitoring and outpatient management of any abnormalities seen on your laboratory studies and/or imaging. Call your family doctor and/or specialist(s) as soon as possible to schedule an appointment for follow up from your emergency department visit. The chart was completed utilizing [employer] Speech voice recognition software.Grammatical errors, random word insertions, pronoun errors, and incomplete sentences are an occasional consequence of this system due to software limitations, ambient noise, and hardware issues.Any formal questions or concerns about the content, text, or information contained within the body of this dictation should be directly addressed to the physician for clarification. Past Med/Surg History Problem List (Updated 03/18/25 @ 15:12 by SABRA Eisenberg) Bilateral lower lobe pneumonia (Acute) Hypoxia (Acute) RLL pneumonia (Acute) Acute exacerbation of chronic obstructive airways disease (Acute) Chest pain (Acute) Dyslipidemia (Chronic) History of coronary artery stent placement (Chronic) CAD (coronary artery disease) (Chronic) Medical History Premature coronary artery disease Surgical History History of colonoscopy Social History Smoking Status: Never smoker Tobacco Type: Smokeless Tobacco (Dip or Chew) Do You Dip or Chew Tobacco: Yes; Hx Alcohol Use: No Hx Substance Use: No Preferred Language: Yi Communication Ability: Effective Dishtank Operator Required: No Beliefs That Will Affect Care: None marital status: Current Living Situation: Spouse Current Living Situation Comment: home with Feels Safe at Home: Yes Assistive Devices: None Allergies Allergies Allergy/AdvReac Type Severity Reaction Status Date / Time ceftriaxone Allergy Intermediate fatigue,wt Verified 09/02/24 13:41 loss, severe dehydration Home Meds Home Medications Medication Instructions Recorded Confirmed alirocumab 75 mg/mL subcutaneous 75 mg subcut Q14D 05/24/20 03/13/25 pen injector (Praluent Pen) aspirin 81 mg tablet,delayed 81 mg PO QAM 05/24/20 03/13/25 release (Marshal Low Dose Aspirin) atorvastatin 80 mg tablet 80 mg PO QAM 05/24/20 03/13/25 clopidogrel 75 mg tablet 75 mg PO QAM 05/24/20 03/13/25 ezetimibe 10 mg tablet 10 mg PO QAM 05/24/20 03/13/25 allopurinol 100 mg tablet 100 mg PO QAM 09/02/24 03/13/25 metformin 500 mg tablet,extended 500 mg PO QAM 09/02/24 03/13/25 release 24 hr bupropion HCl 300 mg 24 hr tablet, 300 mg PO QAM 03/13/25 03/13/25 extended release Previous Rx's Medication Instructions Recorded isosorbide mononitrate 30 mg 30 mg PO QAM #30 tabs 09/03/24 tablet,extended release 24 hr albuterol sulfate 90 mcg/actuation 2 inh inhalation Q6H PRN shortness 03/15/25 aerosol inhaler of breath or wheezing #8.5 grams amoxicillin 875 mg-potassium 1 tab PO BID #10 tabs 03/15/25 clavulanate 125 mg tablet benzonatate 100 mg capsule 100 mg PO TID #30 caps 03/15/25 doxycycline hyclate 100 mg capsule 100 mg PO BID #10 caps 03/15/25 pantoprazole 40 mg tablet,delayed 40 mg PO DAILY #30 tabs 03/15/25 release prednisone 20 mg tablet 40 mg (2 x 20 mg) PO QAM #6 tabs 03/15/25 Results & Data (ED) Vital Signs Vital Signs - 24 hr 03/18/25 12:17 03/18/25 12:57 03/18/25 13:14 Temperature 36.3 C L Temperature Source Temporal Artery Scan Pulse Rate 98 H 89 Pulse Rate [Apical] Pulse Rhythm Regular Pulse Rhythm [Apical] Pulse Strength [Apical] Respiratory Rate 18 17 Respiratory Effort / Characteristics Non-Labored Respiratory Depth Normal Respiratory Pattern Regular Blood Pressure 127/85 Blood Pressure [Right Arm] Blood Pressure Mean 99 Blood Pressure Mean [Right Arm] Blood Pressure Position [Right Arm] Pulse Oximetry 97 94 89 L Oxygen Delivery Method Room Air Room Air Room Air Oxygen Flow Rate Sepsis Recent Fever Within 48 Hours No Sepsis New/Unexplained Change in Mental Status N/A Sepsis Action Taken by Nursing No Action Required Oxygen Flow Rate - Titration 2 Pulse Oximetry Post Tiitration 93 03/18/25 13:14 03/18/25 15:10 Temperature Temperature Source Pulse Rate 84 Pulse Rate [Apical] 85 Pulse Rhythm Pulse Rhythm [Apical] Regular Pulse Strength [Apical] Normal Respiratory Rate 20 Respiratory Effort / Characteristics Non-Labored Spontaneous Respiratory Depth Normal Respiratory Pattern Regular Blood Pressure Blood Pressure [Right Arm] 131/78 Blood Pressure Mean Blood Pressure Mean [Right Arm] 95 Blood Pressure Position [Right Arm] Sitting Pulse Oximetry 93 Oxygen Delivery Method Room Air Nasal Cannula Oxygen Flow Rate 2 Sepsis Recent Fever Within 48 Hours Sepsis New/Unexplained Change in Mental Status Sepsis Action Taken by Nursing Oxygen Flow Rate - Titration Pulse Oximetry Post Tiitration Laboratory Data 03/18/25 12:56 03/18/25 12:56 Lab Results 03/18/25 Range/Units 12:56 WBC 11.33 H (4.8-10.8) K/ul RBC 4.70 (4.70-6.10) M/uL Hgb 14.7 (14.0-18.0) g/dL Hct 41.8 L (42.0-52.0) % MCV 88.9 (80.0-100.0) fL MCH 31.3 (25.0-34.0) pg MCHC 35.2 (32.0-36.0) g/dL RDW Std Deviation 39.1 (36.4-46.3) fL RDW Coeff of Juan Antonio 11.9 (11.5-14.5) % Plt Count 259 (130-400) K/uL MPV 8.8 L (9.4-12.4) fL Immature Gran % (Auto) 2.2 % Neut % (Auto) 84.3 % Lymph % (Auto) 8.4 % Mathews % (Auto) 4.2 % Eos % (Auto) 0.5 % Baso % (Auto) 0.4 % Neut # (Auto) 9.55 H (1.40-6.50) K/uL Lymph # (Auto) 0.95 L (1.20-3.40) K/uL Mathews # (Auto) 0.48 (0.11-0.59) K/uL Eos # (Auto) 0.06 (0.00-0.50) K/uL Baso # (Auto) 0.04 (0.00-0.20) K/uL Immature Gran # (Auto) 0.25 H (0.01-0.20) K/uL Sodium 137 (136-145) mmol/L Potassium 4.1 (3.5-5.1) mmol/L Chloride 104 (98-107) mmol/L Carbon Dioxide 26 (21-32) mmol/L Anion Gap 7 (3-11) BUN 16 (6-23) mg/dl Creatinine 0.97 (0.6-1.4) mg/dl Est Cr Clr Drug Dosing 97.2 ml/min eGFR 96.90 BUN/Creatinine Ratio 16.5 (10-20) Glucose 127 H (70-99(Fasting)) mg/dl Calcium 9.5 (8.6-10.3) mg/dl Total Bilirubin 0.6 (0.2-1.0) mg/dl AST 29 (13-39) U/L ALT 43 (7-52) U/L Alkaline Phosphatase 76 (34-104) U/L Troponin I High Sens 2.7 (0-20) pg/ml Total Protein 7.0 (6.0-8.3) gm/dl Albumin 3.8 (3.4-5.0) gm/dl Globulin 3.2 (2.5-4.0) gm/dl Albumin/Globulin Ratio 1.2 (0.9-2) Procalcitonin < 0.02 (0-0.5) ng/ml Administered Medications Discontinued Medications Albuterol (Albut/Ipratrop 3mg/0.5mg Neb 3 Ml Vial) 3 ml NEB NOW STA; Protocol Stop: 03/18/25 14:33 Last Admin: 03/18/25 14:46 Dose: 3 ml Documented By: [facility] Sodium Chloride (Nss) 1,000 mls @ 999 mls/hr IV .Q1H1M ONE Stop: 03/18/25 15:32 Last Admin: 03/18/25 14:46 Dose: 999 mls/hr Documented By: [facility] Ioversol (Optiray 320 125ml) 112 ml IV ONCE ONE Stop: 03/18/25 13:53 Last Admin: 03/18/25 13:52 Dose: 112 ml Documented By: STORMY Imaging Data Radiologist's Impression: Chest X-Ray 03/18/25 12:40 XR chest 2V PA/lateral HISTORY: 49 years-old Male sob, pneumonia acute shortness of breath COMPARISON: 03/13/2025 TECHNIQUE: PA and lateral views of the chest FINDINGS: Cardiomediastinal and hilar silhouettes are within normal limits. Coronary arterial stenting. No pneumothorax, pleural effusion, airspace consolidation or pulmonary edema. Bones of the chest appear grossly intact. IMPRESSION: No acute process. ACT 112: Negative or not required by law. The above report was generated using voice recognition software. It may contain grammatical, syntax or spelling errors. Electronically signed by: Jorge Vega M.D. 03/18/2025 1:08 PM Chest CTA 03/18/25 13:20 CT angio chest PE protocol CT DOSE: 824.25 mGy.cm HISTORY: 49 years-old Male with PE. Acute shortness of breath with hypoxia TECHNIQUE: Multiple CTA images of the chest were obtained after the intravenous administration of 112 ml Optiray. Coronal and sagittal MIPS were obtained from the axial data set and were submitted for review. All measurements were obtained according to NASCET criteria. A dose lowering technique was utilized adhering to the principles of ALARA. COMPARISON: Chest radiographs of same FINDINGS: CTA: Heart is normal in size. No pericardial effusion. Moderate age advanced coronary arterial calcifications. No thoracic aortic aneurysm or dissection. There is mild atherosclerosis of the thoracic aorta. No central pulmonary emboli are seen, evaluation is limited secondary to respiratory motion. CT CHEST: Unremarkable thyroid. Borderline enlarged subcarinal lymph nodes measure up to 11 mm. These are nonspecific. No pneumothorax, pleural effusion or overt pulmonary edema. Mild patchy ground glass and nodular airspace opacities are most pronounced in the lower lobes. Mild associated bronchial wall thickening. Mild pulmonary emphysema. Central airways appear patent. The imaged upper abdominal structures are normal. The osseous structures appear intact. IMPRESSION: 1. No pulmonary emboli identified. 2. Patchy lower lobe predominate opacities are suggestive of multifocal bronchopneumonia. 3. Emphysema. 4. Mild likely reactive mediastinal lymphadenopathy. 5. Age advanced coronary arterial calcifications. ACT 112: Negative or not required by law. The above report was generated using voice recognition software. It may contain grammatical, syntax or spelling errors. Electronically signed by: Jorge Vega M.D. 03/18/2025 2:26 PM Discharge Plan Visit Data Chief Complaint: Illness Stated Complaint: RETURN FOR LOW OXYGEN ED Provider: Oskar Rocha ED Midlevel Provider: Margot Sadler Discharge Problem: Bilateral lower lobe pneumonia, Hypoxia Patient Disposition: Admitted As Inpatient Condition: Good Prescriptions Prescriptions: No Action atorvastatin 80 mg tablet 80 mg PO QAM clopidogrel 75 mg tablet 75 mg PO QAM aspirin [Marshal Low Dose Aspirin] 81 mg Tablet,Delayed Release (Dr/Ec) 81 mg PO QAM ezetimibe 10 mg tablet 10 mg PO QAM Praluent Pen 75 mg/mL pen injector 75 mg SUBCUT Q14D allopurinol 100 mg tablet 100 mg PO QAM metformin 500 mg tablet extended release 24 hr 500 mg PO QAM isosorbide mononitrate 30 mg Tablet Extended Release 24 Hr 30 mg PO QAM Qty: 30 0RF bupropion HCl 300 mg tablet extended release 24 hr 300 mg PO QAM doxycycline hyclate 100 mg Capsule 100 mg PO BID Qty: 10 0RF benzonatate 100 mg Capsule 100 mg PO TID Qty: 30 0RF prednisone 20 mg Tablet 40 mg PO QAM Qty: 6 0RF amoxicillin-pot clavulanate 875-125 mg tablet 1 tab PO BID Qty: 10 0RF albuterol sulfate 90 mcg/actuation HFA aerosol inhaler 2 inh inhalation Q6H PRN (Reason: shortness of breath or wheezing) Qty: 8.5 0RF pantoprazole 40 mg Tablet,Delayed Release (Dr/Ec) 40 mg PO DAILY Qty: 30 1RF Referrals Referrals: [place] DO [Primary Care Provider] -
--- NOTE | 2025-03-18 15:10 | History & Physical Report ---
Date of Service March 18, 2025 Assessment & Plan (1) Bilateral lower lobe pneumonia: (2) Acute exacerbation of chronic obstructive airways disease: (3) Acute hypoxic respiratory failure: Plan: Patient is 49 year old male with PMH CAD s/p stents, familial hy percholesterolemia, emphysema, GERD presented to ER with c/o continued cough, SOB, low home pulse ox who returns today after [facility] admission 03/13/25-03/15/25 for acute hypoxic RLL pneumonia, +adenovirus treated with IV Unasyn, doxycycline, prednisone 40mg daily. Had 2 step completed prior to discharge with no oxygen requirement. Discharged on oral doxycycline, Augmentin and prednisone 40mg daily. In ER Afebrile, P: 98, R: 18, BP 127/85, 97% on room air noted to drop to 89% on room air up to 94% on 2 L WBC: 11.3. Lactate: 2.3. Repeat lactate normalized to 1.7, negative procalcitonin CTA chest: No pulmonary emboli identified. Patchy lower lobe predominate opacities are suggestive of multifocal bronchopneumonia. Emphysema. Mild likely reactive mediastinal lymphadenopathy. In ER given 1L NSS, albuterol neb treatment Negative MRSA nasal screen Obtain urine Legionella Obtain sputum culture if possible Start Levaquin Gentle IVF Incentive spirometer, flutter valve, Mucinex DuoNebs Supplemental oxygen as needed Consider pulmonology consult if no improvement CBC, BMP in a.m. (4) CAD (coronary artery disease): Plan: S/P prior coronary invention 2017 and single drug-eluting stent implantation in an overlap fashion with the old proximal stent in [facility] [place] [facility] 08/2024 H/O prior beta amanuel intolerance in 2018 with atenolol Continue aspirin, Plavix, isosorbide, ezetimibe #Familial hypercholesterolemia On Praluent Continue ezetimibe DVT Prophylaxis Lovenox Admit med tele Full Code as per discussion with pt Follows with Dr Morris Park for routine care Pt was seen and care coordinated with Dr Chinchilla. See addendum I spent a total of 70 minutes reviewing notes, outpatient records, labs, medication, coordinating, documenting and providing care for this patient excluding time spent in the performance of separately billed services and excluding time spent by another provider/QHP. History of Present Illness Chief Complaint: SOB Primary Care Provider: Morris S. Park, DO Patient is 49 year old male with PMH CAD s/p stents, familial hypercholesterolemia, emphysema, GERD presented to ER with c/o continued cough, SOB. Per inpatient chart review recent [facility] admission 03/13/25-03/15/25 for acute hypoxic respiratory failure, RLL pneumonia, +adenovirus treated with IV Unasyn, doxycycline, prednisone 40mg daily. Had 2 step completed prior to di scharge with no oxygen requirement. Discharged on oral doxycycline, Augmentin and prednisone 40mg daily. Reports initially upon the day of returning home felt like was having improvement and then following day not feeling any better and states continues to have cough productive yellow, continues SOB with exertion. States cough is very severe at times. Using albuterol several times day without relief. Finished prednisone today. Reports home pulse ox down in 80's today at rest and came to ER for further evaluation. Denies fever/chills, V/D/C, GOMEZ, dizziness, syncope, CP, palpitations, rhinorrhea, abdominal pain, paresthesias, extremity edema, rashes, urinary symptoms. Allergies Allergy/AdvReac Type Severity Reaction Status Date / Time ceftriaxone Allergy Intermediate fatigue,wt Verified 03/18/25 16:00 loss, severe dehydration Home Medications Medication Instructions Recorded Confirmed Type albuterol sulfate 90 mcg/actuation 2 puff inhalation Q4H PRN 03/18/25 03/18/25 History aerosol inhaler Shortness Of Breath Or Wheezing alirocumab 75 mg/mL subcutaneous 75 mg subcut Q14D 03/18/25 03/18/25 History pen injector (Praluent Pen) allopurinol 100 mg tablet 100 mg PO DAILY 03/18/25 03/18/25 History amoxicillin 875 mg-potassium 1 tab PO BID 03/18/25 03/18/25 History clavulanate 125 mg tablet atorvastatin 80 mg tablet 80 mg PO HS 03/18/25 03/18/25 History benzonatate 100 mg capsule 100 mg PO TID PRN Cough 03/18/25 03/18/25 History bupropion HCl 300 mg 24 hr tablet, 300 mg PO DAILY 03/18/25 03/18/25 History extended release clopidogrel 75 mg tablet 75 mg PO DAILY 03/18/25 03/18/25 History doxycycline hyclate 100 mg capsule 100 mg PO BID 03/18/25 03/18/25 History ezetimibe 10 mg tablet 10 mg PO DAILY 03/18/25 03/18/25 History isosorbide mononitrate 30 mg 30 mg PO DAILY 03/18/25 03/18/25 History tablet,extended release 24 hr metformin 500 mg tablet,extended 500 mg PO DAILY 03/18/25 03/18/25 History release 24 hr pantoprazole 40 mg tablet,delayed 40 mg PO DAILY 03/18/25 03/18/25 History release Past Med/Surg History Problem List (Updated 03/18/25 @ 18:20 by Jennifer Dhaliwal PA-C) Acute hypoxic respiratory failure Bilateral lower lobe pneumonia (Acute) Hypoxia (Acute) RLL pneumonia (Acute) Acute exacerbation of chronic obstructive airways disease (Acute) Chest pain (Acute) Dyslipidemia (Chronic) History of coronary artery stent placement (Chronic) CAD (coronary artery disease) (Chronic) Medical History Premature coronary artery disease Surgical History History of colonoscopy Social History (Updated 03/18/25 @ 18:43 by Jennifer Dhaliwal PA-C) Smoking Status: Former smoker Do You Dip or Chew Tobacco: Yes; Hx Alcohol Use: No Hx Substance Use: No Preferred Language: Barbadian Communication Ability: Effective Court Operations Clerk Required: No Beliefs That Will Affect Care: None marital status: Current Living Situation: Spouse Current Living Situation Comment: home with Other Information That Helps Us Care for You: No Feels Safe at Home: Yes Safety Concerns: Feels Safe At This Time Assistive Devices: None Review of Systems Review of Systems: All systems reviewed & are unremarkable except as noted in HPI & below Physical Exam Physical Exam: General: no distress, WDWN Head: normocephalic, atraumatic Eyes: conjunctiva non-injected, anicteric ENT: normal inspection external ears, nose, mucous membranes moist Neck: supple, trachea midline Lungs: clear, no respiratory distress on current 2L via NC with O2 sat 95%, no wheezing/rhonchi/rales appreciated at this time (after neb tx in ER) CV: RRR, + murmur, no pretibial edema Abd: normal BS, soft, non-tender Ext: no cyanosis, no calf tenderness Neuro: A&O x 3, no focal deficits noted, normal affect Skin: warm, dry Results & Data Results & Data Vital Signs (Past 12 Hours) Vital Signs Temp Pulse Resp BP Pulse Ox O2 Del Method 03/18/25 13:14 84 03/18/25 13:14 89 L Room Air 03/18/25 12:57 89 17 94 Room Air 03/18/25 12:17 36.3 C L 98 H 18 127/85 97 Room Air Laboratory Results Short CBC 03/18/25 Range/Units 12:56 WBC 11.33 H (4.8-10.8) K/ul Hgb 14.7 (14.0-18.0) g/dL Hct 41.8 L (42.0-52.0) % Plt Count 259 (130-400) K/uL BMP 03/18/25 12:56 Sodium 137 Potassium 4.1 Chloride 104 Carbon Dioxide 26 BUN 16 Creatinine 0.97 Glucose 127 H Calcium 9.5 Liver Function 03/18/25 Range/Units 12:56 Total Bilirubin 0.6 (0.2-1.0) mg/dl AST 29 (13-39) U/L ALT 43 (7-52) U/L Alkaline Phosphatase 76 (34-104) U/L Albumin 3.8 (3.4-5.0) gm/dl Urine 03/18/25 Range/Units 15:55 Urine Color Yellow Urine Appearance Clear (Clear) Urine pH 7.0 (4.5-7.5) Ur Specific [place] 1.032 H (1.000-1.030) Urine Protein Negative (Negative) Urine Glucose (UA) Negative (Negative) Diagnostic Findings Chest X-Ray 03/18/25 12:40 XR chest 2V PA/lateral HISTORY: 49 years-old Male sob, pneumonia acute shortness of breath COMPARISON: 03/13/2025 TECHNIQUE: PA and lateral views of the chest FINDINGS: Cardiomediastinal and hilar silhouettes are within normal limits. Coronary arterial stenting. No pneumothorax, pleural effusion, airspace consolidation or pulmonary edema. Bones of the chest appear grossly intact. IMPRESSION: No acute process. ACT 112: Negative or not required by law. The above report was generated using voice recognition software. It may contain grammatical, syntax or spelling errors. Electronically signed by: Jorge Vega M.D. 03/18/2025 1:08 PM Chest CTA 03/18/25 13:20 CT angio chest PE protocol CT DOSE: 824.25 mGy.cm HISTORY: 49 years-old Male with PE. Acute shortness of breath with hypoxia TECHNIQUE: Multiple CTA images of the chest were obtained after the intravenous administration of 112 ml Optiray. Coronal and sagittal MIPS were obtained from the axial data set and were submitted for review. All measurements were obtained according to NASCET criteria. A dose lowering technique was utilized adhering to the principles of ALARA. COMPARISON: Chest radiographs of same FINDINGS: CTA: Heart is normal in size. No pericardial effusion. Moderate age advanced coronary arterial calcifications. No thoracic aortic aneurysm or dissection. There is mild atherosclerosis of the thoracic aorta. No central pulmonary emboli are seen, evaluation is limited secondary to respiratory motion. CT CHEST: Unremarkable thyroid. Borderline enlarged subcarinal lymph nodes measure up to 11 mm. These are nonspecific. No pneumothorax, pleural effusion or overt pu lmonary edema. Mild patchy ground glass and nodular airspace opacities are most pronounced in the lower lobes. Mild associated bronchial wall thickening. Mild pulmonary emphysema. Central airways appear patent. The imaged upper abdominal structures are normal. The osseous structures appear intact. IMPRESSION: 1. No pulmonary emboli identified. 2. Patchy lower lobe predominate opacities are suggestive of multifocal bronchopneumonia. 3. Emphysema. 4. Mild likely reactive mediastinal lymphadenopathy. 5. Age advanced coronary arterial calcifications. ACT 112: Negative or not required by law. The above report was generated using voice recognition software. It may contain grammatical, syntax or spelling errors. Electronically signed by: Jorge Vega M.D. 03/18/2025 2:26 PM ECG Additional Comments: sinus rhythm, no ST elevation per my interpretation Supervising Physician Co-Signing Physician Notes Attending Addendum: Case reviewed with the advanced practitioner. I have personally performed a history and physical examination on the patient. I have reviewed the advanced practitioner's documentation on the date of service referenced in note, and I agree with, and take responsibility for the plan of care. please refer to her notes for full details patient seen and examined, records reviewed by myself as well on exam, patient seen resting in bed, sitting up, watching TV, on 2 L of O2 via nasal cannula States her breathing has somewhat improved since admission Still having dry cough, unable to expectorate phlegm no other symptoms VS noted and reviewed oriented x 3 , not in distress, speaks in sentences with no effort nor accessory muscle use normal rate, regular rhythm, no murmurs Mild rhonchi bilaterally, no wheezing, good air entry bilaterally non distended, soft, nontender no bipedal edema, erythema, warmth no neuro deficits all labs, imaging noted and reviewed ASSESSMENT AND PLAN> Acute hypoxic respiratory failure secondary toBilateral pneumonia - patient presented to the ER for worsening shortness of breath after being discharged 3 days ago with Augmentin, doxycycline and prednisone - CT chest showing bilateral lower lobe pneumonia - transition to IV Levaquin, nebs 4 times daily, Mucinex twice daily, assess from a chair, flutter valve check sputum culture, urine Legionella antigen pulmonology service consulted other diagnoses and plan of care as per advanced practitioner's notes I spent a total of 35 minutes coordinating, documenting, and providing care for this patient, excluding time spent in the performance of separately billed services or time spent by another provider/QHP. Odell Chinchilla MD
--- NOTE | 2025-03-18 15:51 | Electrocardiogram Report ---
Test Reason : Blood Pressure : */* mmHG Vent. Rate : 87 BPM Atrial Rate : 87 BPM P-R Int : 160 ms QRS Dur : 82 ms QT Int : 368 ms P-R-T Axes : 53 26 35 degrees QTcB Int : 442 ms Normal sinus rhythm Normal ECG When compared with ECG of 13-Mar-2025 11:30, No significant change was found Confirmed by Enrico Will ([id number]) on 03/18/2025 3:51:12 PM Referred By: Morris Park Confirmed By: Enrico Will
[2025-03-18 16:11] LABS: Appearance Urine Clear (Clear); Glucose Urine UA Negative (Negative)
[2025-03-18] MEDS: SODIUM CHLORIDE 0.9% 1,000 ML IV SCH (17:00)
[2025-03-18] MEDS ORDERED: POLYETHYLENE (MIRALAX) 17 GM PACK PO PRN (17:43)
[2025-03-18] MEDS ORDERED: ACETAMINOPHEN 325 MG TAB PO PRN (17:43)
[2025-03-18] MEDS ORDERED: ONDANSETRON INJ 2 MG/ML 2 ML VIAL IV PRN (17:43)
[2025-03-18] MEDS: ATORVASTATIN 40 MG TAB PO SCH (19:57)
[2025-03-18] MEDS: guaiFENesin 600 MG TABCR PO SCH (19:57)
[2025-03-18] MEDS: ENOXAPARIN INJ 40 MG/0.4 ML SYR SQ SCH (20:00)
[2025-03-18] MEDS: ALBUT/IPRATROP 3MG/0.5MG NEB 3 ML VIAL NEB SCH (20:06)
[2025-03-18] MEDS ORDERED: guaiFENesin 600 MG TABCR PO SCH (21:00)
[2025-03-19 06:23] LABS: Hematocrit (blood only) 38.9 % (42.0-52.0); Hemoglobin 13.6 g/dL (14.0-18.0); Immature Granulocytes # (auto) 0.49 K/uL (0.01-0.20); Immature Granulocytes % (auto) 3.9 %; Mean Corpuscular Hemoglobin 31.9 pg (25.0-34.0); Mean Corpuscular Volume 91.1 fL (80.0-100.0); Platelet Count 266 K/uL (130-400); RDW Standard Deviation 39.7 fL (36.4-46.3); Red Blood Count 4.27 M/uL (4.70-6.10); White Blood Count 12.48 K/ul (4.8-10.8)
[2025-03-19 06:45] LABS: Anion Gap 8.0 (3-11); Blood Urea Nitrogen 14.0 mg/dl (6-23); Calcium 8.9 mg/dl (8.6-10.3); Carbon Dioxide 24.0 mmol/L (21-32); Chloride 106.0 mmol/L (98-107); Creatinine Clr Calc Pharmacy 105.9 ml/min; Glucose 95.0 mg/dl (70-99(Fasting)); Potassium 3.9 mmol/L (3.5-5.1); Sodium 138.0 mmol/L (136-145)
[2025-03-19] MEDS: EZETIMIBE 10 MG TAB PO SCH (08:38)
[2025-03-19] MEDS: CLOPIDOGREL BISULFATE 75 MG TAB PO SCH (08:38)
[2025-03-19] MEDS: ISOSORBIDE MONO EXTENDED REL 30 MG TABCR PO SCH (08:39)
[2025-03-19] MEDS: ADVANCED PROBIOTIC 625 MG CAPSULE PO SCH (08:39)
--- NOTE | 2025-03-19 09:20 | Pulmonary Consultation ---
Date of Consultation March 19, 2025 Assessment & Plan (1) COPD with emphysema: (2) Acute hypoxic respiratory failure: (3) Bilateral lower lobe pneumonia: (4) Ex-smoker: (5) VY (obstructive sleep apnea): Plan CTA chest 03/18/2025 personally reviewed: Centrilobular and paraseptal emphysema appreciated bilaterally Motion degraded study Patchy opacities appreciated bilateral lower lobes more on the right side Dependent atelectasis bilateral lower lobes Minimal subcarinal and right hilar lymphadenopathy 2D echo 09/02/2024: EF 60-65%, RV normal in size and function, mild PI -- Acute hypoxic respiratory failure Secondary to multifocal pneumonia with COPD exacerbation Respiratory BioFire was positive for adenovirus on 03/14/25 Procalcitonin negative, nasal MRSA negative -- COPD with emphysema Not on any inhalers at home Absolute eosinophil count 160 on 03/19/2025 Would recommend Stiolto or Anoro on discharge Patient follows up with [facility] pulmonology --Ex-smoker Approximately [id number] smoking history Quit in 2018 --VY Was not able to tolerate CPAP Will be a candidate for inspire device given that the BMI is 27 He follows up with a sleep physician, will defer it to them as an outpatient Plan: Continue with antibiotics with atypical coverage for at least 5-7 days Given that he is actively wheezing I do think he is going to benefit from nebulizers at least in the hospital Would also recommend to discharge the patient on either Stiolto or Anoro for at least couple of weeks till 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 Recommend nocturnal oximetry, if his oxygen does go down at night then would recommend oxygen nightly Case discussed with RN at bedside as well as primary team All questions inquiries of the patient as well as patient's were answered to my best ability I spent more than 75 minutes looking in the chart, images, discussing the plan of care with the patient, RN as well as primary team Please note the above document was generated using voice recognition software. It may contain grammatical, syntax or spelling errors.Any formal questions or concerns about the content, text or information contained within the body of this dictation should be directly addressed to the provider for clarification. History of Present Illness Attending Physician: Edinson Rubio MD History of Present Illness 49-year-old male coming to the hospital for shortness of breath. Pulmonary consulted for multifocal pneumonia Past medical history: Dyslipidemia, GERD, coronary artery disease s/p stents At the time of examination patient was saturating 97% on 2 L, I went down to 1 L Patient's was on speaker phone during the examination. He stated that he is feeling a little bit better after coming to the hospital He was complaining of coughing fits back when he came to the ER on 03/14/2025 and was diagnosed with adenovirus. He went home and he again had fits of coughing and he checked his saturation after that which showed that it was 86%. He came back to the ER and he was subsequently admitted after having a CTA chest done He denies any chest pain right now. He says he is bringing up phlegm which is mostly clear. Denies any hemoptysis. He does not have any kids at home. Does not recall any exposure to anybody who is sick. 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 Asthma: History of asthma in younger brother, no personal history of asthma No history of lung cancer in the family Allergies Allergy/AdvReac Type Severity Reaction Status Date / Time ceftriaxone Allergy Intermediate fatigue,wt Verified 03/18/25 16:00 loss, severe dehydration Home Medications Medication Instructions Recorded Confirmed Type albuterol sulfate 90 mcg/actuation 2 puff inhalation Q4H PRN 03/18/25 03/18/25 History aerosol inhaler Shortness Of Breath Or Wheezing alirocumab 75 mg/mL subcutaneous 75 mg subcut Q14D 03/18/25 03/18/25 History pen injector (Praluent Pen) allopurinol 100 mg tablet 100 mg PO DAILY 03/18/25 03/18/25 History amoxicillin 875 mg-potassium 1 tab PO BID 03/18/25 03/18/25 History clavulanate 125 mg tablet atorvastatin 80 mg tablet 80 mg PO HS 03/18/25 03/18/25 History benzonatate 100 mg capsule 100 mg PO TID PRN Cough 03/18/25 03/18/25 History bupropion HCl 300 mg 24 hr tablet, 300 mg PO DAILY 03/18/25 03/18/25 History extended release clopidogrel 75 mg tablet 75 mg PO DAILY 03/18/25 03/18/25 History doxycycline hyclate 100 mg capsule 100 mg PO BID 03/18/25 03/18/25 History ezetimibe 10 mg tablet 10 mg PO DAILY 03/18/25 03/18/25 History isosorbide mononitrate 30 mg 30 mg PO DAILY 03/18/25 03/18/25 History tablet,extended release 24 hr metformin 500 mg tablet,extended 500 mg PO DAILY 03/18/25 03/18/25 History release 24 hr pantoprazole 40 mg tablet,delayed 40 mg PO DAILY 03/18/25 03/18/25 History release Patient History Medical History Premature coronary artery disease Surgical History History of colonoscopy Social History (Updated 03/18/25 @ 18:43 by Jennifer Dhaliwal PA-C) Smoking Status: Former smoker Do You Dip or Chew Tobacco: Yes; Hx Alcohol Use: No Hx Substance Use: No Preferred Language: American Communication Ability: Effective Molecular Biology Scientist Required: No Beliefs That Will Affect Care: None marital status: Current Living Situation: Spouse Current Living Situation Comment: home with Other Information That Helps Us Care for You: No Feels Safe at Home: Yes Safety Concerns: Feels Safe At This Time Assistive Devices: None Review of Systems 2 Review of Systems: All systems reviewed & are unremarkable except as noted in HPI & below Physical Exam 2 Physical Exam: Constitutional: No acute distress HEENT: EOMI, PERRLA Respiratory system: Good air entry bilaterally, no rhonchi, mild crackles bilateral lower lobes, minimal expiratory wheeze bilaterally CVS: S1-S2 positive, no murmurs or gallops Abdomen: Soft, nontender, nondistended, positive bowel sounds x4 Extremities: +2 pulses bilaterally radialis/ dorsalis pedis, no cyanosis, no edema Neuro: Awake alert oriented x3 Psych: Normal mood and affect G/U: No Begum Skin: no rashes, warm and dry Lymphatic: no cervical or axillary lymphadenopathy Results & Data Results & Data Vital Signs (Past 12 Hours) Vital Signs Temp Pulse Pulse Resp BP Pulse Ox O2 Del Method 03/19/25 07:59 36.5 C 68 19 124/77 94 Nasal Cannula 03/19/25 07:23 74 15 96 Nasal Cannula 03/19/25 03:42 36.5 C 66 16 122/77 97 Nasal Cannula 03/18/25 23:25 97 Nasal Cannula 03/18/25 23:14 36.7 C 96 H 18 137/69 90 Room Air 03/18/25 22:10 95 H O2 Flow Rate 03/19/25 07:59 2 03/19/25 07:23 2 03/19/25 03:42 2 03/18/25 23:25 2 03/18/25 23:14 03/18/25 22:10 Laboratory Results 03/19/25 05:25 03/19/25 05:25 PG Care Time/CCT Total # of Minutes Spent Total Time Spent with Patient: Total time spent is greater than 50% in coordination of care (as documented) at patient's floor/unit and/or counseling patient: Coding Level of Care Code 33521 INT INP/OBS CARE 3/75MIN Diagnoses COPD with emphysema J43.9 Acute hypoxic respiratory failure J96.01 Bilateral lower lobe pneumonia J18.9 Ex-smoker Z87.891 VY (obstructive sleep apnea) G47.33
[2025-03-19] MEDS ORDERED: diphenhydrAMINE Capsule 25 MG CAP PO PRN (11:35)
[2025-03-19] MEDS ORDERED: SODIUM CHLORIDE 0.65% NA SOLN 45 ML (OCEAN) PRN ×2 (12:18→12:25)
--- NOTE | 2025-03-19 12:36 | Hospitalist Progress Note ---
Date of Service March 19, 2025 Assessment & Plan (1) Bilateral lower lobe pneumonia: (2) Acute exacerbation of chronic obstructive airways disease: (3) Acute hypoxic respiratory failure: Plan: Patient is 49 year old male with PMH CAD s/p stents, familial hy percholesterolemia, emphysema, GERD presented to ER with c/o continued cough, SOB, low home pulse ox who returns today after [facility] admission 03/13/25-03/15/25 for acute hypoxic RLL pneumonia, +adenovirus treated with IV Unasyn, doxycycline, prednisone 40mg daily. Had 2 step completed prior to discharge with no oxygen requirement. Discharged on oral doxycycline, Augmentin and prednisone 40mg daily. Acute hypoxic respiratory failure COPD exacerbation Multifocal pneumonia Recent adenovirus infection Could have underlying sleep apnea --Chest CTA: No pulmonary emboli identified. Patchy lower lobe predominate opacities are suggestive of multifocal bronchopneumonia. Emphysema. Mild likely reactive mediastinal lymphadenopathy. Age advanced coronary arterial calcifications. --Urine for Legionella pending --Sputum culture: Pinpoint growth --Procalcitonin negative, nasal MRSA negative Continue nebs, Levaquin, Perforomist Wean off of supplemental oxygen as able Appreciate pulmonology input Will obtain nocturnal oximetry study May need sleep study as outpatient Plan for 2 step prior to discharge Plan to discharge on Anoro as recommended by pulmonology Will benefit from following with pulmonology on discharge Erythematous rash Noted on bilateral feet--localized DD: Contact dermatitis Received IV Solu-Medrol, Antihistamine Benadryl as needed Epistaxis Afrin, TXA as needed Humidification of supplemental oxygen Monitor (4) CAD (coronary artery disease): Plan: S/P prior coronary invention 2018 and single drug-eluting stent implantation in an overlap fashion with the old proximal stent in [facility] 08/2024 H/O prior beta amanuel intolerance in 2018 with atenolol Continue aspirin, Plavix, isosorbide, ezetimibe Familial hypercholesterolemia On Praluent Continue ezetimibe DVT Prophylaxis Lovenox SQ--- held due to epistaxis SCDs for now CODE STATUS Full code Disposition Expect to be discharge home when stable Admission and Anticipated Discharge Date Admission Date: March 18, 2025 Subjective Patient is seen and examined at bedside Dizziness slightly better when compared to yesterday Has minimal cough with clear expectoration Was noted to have transient epistaxis by RN Also reports having bilateral feet erythematous itchy rash Denies any chest pain, nausea, vomiting, abdominal pain, dizziness Review of Systems Review of Systems: All systems reviewed & are unremarkable except as noted in Subjective Physical Exam Physical Exam: Physical Exam: Vitals signs as noted above General Appearance:Moderately built and nourished, no apparent distress Head: normocephalic, Atraumatic Eyes: normal inspection, EOMI Neck: supple, Trachea midline Respiratory/Chest: Decreased breath sounds, minimal wheezing, No accessory muscle use Cardiovascular: S1, S2, No murmur Abdomen/GI:Soft, Non tender, Bowel sounds present Extremities/Musculoskeletal:normal inspection, no edema, B/L feet erythema Neurologic/Psych:AAOX3, grossly no focal neurological deficits Skin: normal color, warm Results & Data Results & Data Vital Signs (Past 12 Hours) Vital Signs Temp Pulse Resp BP BP Pulse Ox O2 Del Method 03/19/25 11:43 36.4 C L 86 18 114/67 95 Room Air 03/19/25 11:20 86 17 95 Room Air 03/19/25 07:59 36.5 C 68 19 124/77 94 Nasal Cannula 03/19/25 07:23 74 15 96 Nasal Cannula 03/19/25 03:42 36.5 C 66 16 122/77 97 Nasal Cannula O2 Flow Rate FiO2 03/19/25 11:43 03/19/25 11:20 21 03/19/25 07:59 2 03/19/25 07:23 2 03/19/25 03:42 2 Laboratory Results Short CBC 03/18/25 03/19/25 Range/Units 12:56 05:25 WBC 11.33 H 12.48 H (4.8-10.8) K/ul Hgb 14.7 13.6 L (14.0-18.0) g/dL Hct 41.8 L 38.9 L (42.0-52.0) % Plt Count 259 266 (130-400) K/uL BMP 03/18/25 03/19/25 12:56 05:25 Sodium 137 138 Potassium 4.1 3.9 Chloride 104 106 Carbon Dioxide 26 24 BUN 16 14 Creatinine 0.97 0.89 Glucose 127 H 95 Calcium 9.5 8.9 Liver Function 03/18/25 Range/Units 12:56 Total Bilirubin 0.6 (0.2-1.0) mg/dl AST 29 (13-39) U/L ALT 43 (7-52) U/L Alkaline Phosphatase 76 (34-104) U/L Albumin 3.8 (3.4-5.0) gm/dl Urine 03/18/25 Range/Units 15:55 Urine Color Yellow Urine Appearance Clear (Clear) Urine pH 7.0 (4.5-7.5) Ur Specific [place] 1.032 H (1.000-1.030) Urine Protein Negative (Negative) Urine Glucose (UA) Negative (Negative)
[2025-03-19] MEDS: CETIRIZINE HCL 10 MG TABLET PO ONE (12:39)
[2025-03-19] MEDS: OXYMETAZOLINE 0.05% 30 ML BTL NAE ONE (12:40)
[2025-03-19] MEDS: BUDESONIDE 0.25 MG/2 ML VIAL (PULMICORT) NEB SCH (19:39)
[2025-03-19] MEDS: FORMOTEROL 20 MCG/2 ML VIAL NEB SCH (19:39)
[2025-03-20 06:15] LABS: Hematocrit (blood only) 40.8 % (42.0-52.0); Hemoglobin 13.9 g/dL (14.0-18.0); Mean Corpuscular Hemoglobin 30.9 pg (25.0-34.0); Mean Corpuscular Volume 90.7 fL (80.0-100.0); Platelet Count 286 K/uL (130-400); RDW Standard Deviation 39.9 fL (36.4-46.3); Red Blood Count 4.50 M/uL (4.70-6.10); White Blood Count 13.64 K/ul (4.8-10.8)
[2025-03-20 06:50] LABS: Anion Gap 9.0 (3-11); Blood Urea Nitrogen 19.0 mg/dl (6-23); Calcium 8.8 mg/dl (8.6-10.3); Carbon Dioxide 23.0 mmol/L (21-32); Chloride 104.0 mmol/L (98-107); Creatinine Clr Calc Pharmacy 99.3 ml/min; Glucose 156.0 mg/dl (70-99(Fasting)); Magnesium 2.1 mg/dl (1.7-2.4); Potassium 3.7 mmol/L (3.5-5.1); Sodium 136.0 mmol/L (136-145)
[2025-03-20] MEDS: TXA 10% Non-IV Routes 100 MG/ML VIAL ONE (07:38)
[2025-03-20] MEDS: predniSONE 20 MG TAB PO SCH (07:39)
--- NOTE | 2025-03-20 14:01 | Hospitalist Progress Note ---
Date of Service March 20, 2025 Assessment & Plan (1) Bilateral lower lobe pneumonia: (2) Acute exacerbation of chronic obstructive airways disease: (3) Acute hypoxic respiratory failure: Plan: Patient is 49 year old male with PMH CAD s/p stents, familial hy percholesterolemia, emphysema, GERD presented to ER with c/o continued cough, SOB, low home pulse ox who returns today after [facility] admission 03/13/25-03/15/25 for acute hypoxic RLL pneumonia, +adenovirus treated with IV Unasyn, doxycycline, prednisone 40mg daily. Had 2 step completed prior to discharge with no oxygen requirement. Discharged on oral doxycycline, Augmentin and prednisone 40mg daily. Acute hypoxic respiratory failure COPD exacerbation Multifocal pneumonia Recent adenovirus infection Could have underlying sleep apnea --Chest CTA: No pulmonary emboli identified. Patchy lower lobe predominate opacities are suggestive of multifocal bronchopneumonia. Emphysema. Mild likely reactive mediastinal lymphadenopathy. Age advanced coronary arterial calcifications. --Urine for Legionella pending --Sputum culture: Pinpoint growth --Procalcitonin negative, nasal MRSA negative Continue nebs, Levaquin, Perforomist, prednisone Weaned off of supplemental oxygen Appreciate pulmonology input Will need 2 step prior to discharge Plan to discharge on Anoro as recommended by pulmonology Will benefit from following with pulmonology on discharge Improving clinically Nocturnal hypoxia Needs supplemental oxygen arranged prior to discharge Recommended polysomnography as outpatient Erythematous rash--resolved Noted on bilateral feet--localized DD: Contact dermatitis Received IV Solu-Medrol, Antihistamine Benadryl as needed Epistaxis Afrin, TXA as needed Humidification of supplemental oxygen Resolved (4) CAD (coronary artery disease): Plan: S/P prior coronary invention 2018 and single drug-eluting stent implantation in an overlap fashion with the old proximal stent in [facility] 08/2024 H/O prior beta amanuel intolerance in 2018 with atenolol Continue aspirin, Plavix, isosorbide, ezetimibe Familial hypercholesterolemia On Praluent Continue ezetimibe DVT Prophylaxis Lovenox SQ--- held due to epistaxis SCDs for now CODE STATUS Full code Disposition Expect to be discharge home likely tomorrow Admission and Anticipated Discharge Date Admission Date: March 18, 2025 Subjective Patient is seen and examined at bedside States feeling a lot better today Rash on his feet resolved Cough, dyspnea improving Weaned off of supplemental oxygen No recurrence of epistaxis Denies any chest pain, nausea, vomiting, abdominal pain, dizziness Review of Systems Review of Systems: All systems reviewed & are unremarkable except as noted in Subjective Physical Exam Physical Exam: Physical Exam: Vitals signs as noted above General Appearance:Moderately built and nourished, no apparent distress Head: normocephalic, Atraumatic Eyes: normal inspection, EOMI Neck: supple, Trachea midline Respiratory/Chest: Decreased breath sounds, CTA, No accessory muscle use Cardiovascular: S1, S2, No murmur Abdomen/GI:Soft, Non tender, Bowel sounds present Extremities/Musculoskeletal:normal inspection, no edema, B/L feet erythema Neurologic/Psych:AAOX3, grossly no focal neurological deficits Skin: normal color, warm Results & Data Results & Data Vital Signs (Past 12 Hours) Vital Signs Temp Pulse Pulse Pulse Resp BP Pulse Ox 03/20/25 11:42 03/20/25 11:33 36.5 C 85 19 122/75 92 03/20/25 11:09 85 17 95 03/20/25 08:52 72 03/20/25 08:09 36.7 C 70 17 132/76 94 03/20/25 07:27 88 16 95 03/20/25 03:13 36.6 C 84 16 140/70 96 03/20/25 02:05 80 Pulse Ox O2 Del Method O2 Del Method O2 Flow Rate FiO2 03/20/25 11:42 Room Air, Nasal Cannula 03/20/25 11:33 Room Air 03/20/25 11:09 Room Air 21 03/20/25 08:52 03/20/25 08:09 Nasal Cannula 1 03/20/25 07:27 Room Air 03/20/25 03:13 Nasal Cannula 2 03/20/25 02:05 92 Room Air Laboratory Results Short CBC 03/20/25 Range/Units 05:53 WBC 13.64 H (4.8-10.8) K/ul Hgb 13.9 L (14.0-18.0) g/dL Hct 40.8 L (42.0-52.0) % Plt Count 286 (130-400) K/uL BMP 03/20/25 05:53 Sodium 136 Potassium 3.7 Chloride 104 Carbon Dioxide 23 BUN 19 Creatinine 0.95 Glucose 156 H Calcium 8.8
[2025-03-21 06:52] LABS: Hematocrit (blood only) 41.2 % (42.0-52.0); Hemoglobin 14.4 g/dL (14.0-18.0); Mean Corpuscular Hemoglobin 31.9 pg (25.0-34.0); Mean Corpuscular Volume 91.2 fL (80.0-100.0); Platelet Count 286 K/uL (130-400); RDW Standard Deviation 40.1 fL (36.4-46.3); Red Blood Count 4.52 M/uL (4.70-6.10); White Blood Count 12.56 K/ul (4.8-10.8)
[2025-03-21 07:14] LABS: Anion Gap 8.0 (3-11); Blood Urea Nitrogen 19.0 mg/dl (6-23); Calcium 9.2 mg/dl (8.6-10.3); Carbon Dioxide 25.0 mmol/L (21-32); Chloride 104.0 mmol/L (98-107); Creatinine Clr Calc Pharmacy 108.4 ml/min; Glucose 117.0 mg/dl (70-99(Fasting)); Magnesium 2.1 mg/dl (1.7-2.4); Potassium 4.1 mmol/L (3.5-5.1); Sodium 137.0 mmol/L (136-145)
--- NOTE | 2025-03-21 08:17 | Pulmonology Progress Note ---
Date of Service March 21, 2025 Assessment & Plan (1) COPD with emphysema: (2) Acute hypoxic respiratory failure: (3) Bilateral lower lobe pneumonia: (4) Ex-smoker: (5) VY (obstructive sleep apnea): Plan CTA chest 03/18/2025 personally reviewed: Centrilobular and paraseptal emphysema appreciated bilaterally Motion degraded study Patchy opacities appreciated bilateral lower lobes more on the right side Dependent atelectasis bilateral lower lobes Minimal subcarinal and right hilar lymphadenopathy 2D echo 09/02/2024: EF 60-65%, RV normal in size and function, mild PI -- Acute hypoxic respiratory failure Secondary to multifocal pneumonia with COPD exacerbation Respiratory BioFire was positive for adenovirus on 03/14/25 Procalcitonin negative, nasal MRSA negative -- COPD with emphysema Not on any inhalers at home Absolute eosinophil count 160 on 03/19/2025 Would recommend Stiolto or Anoro on discharge Patient follows up with [facility] pulmonology --Ex-smoker Approximately 82-lsim-dynw smoking history Quit in 2018 --VY Was not able to tolerate CPAP Will be a candidate for inspire device given that the BMI is 27 He follows up with a sleep physician, will defer it to them to be discussed outpatient Plan: Continue with antibiotics with atypical coverage for at least 5-7 days Would also recommend to discharge the patient on either Stiolto or Anoro for at least couple of weeks 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 Taper prednisone off over the next 4 days Nocturnal oximetry does show the patient will qualify for oxygen at home. Recommend to check for oxygen on exertion prior to discharge Case discussed with RN at bedside as well as primary team No further recommendation from pulmonary perspective, will sign off Please call directly with any questions Please note the above document was generated using voice recognition software. It may contain grammatical, syntax or spelling errors.Any formal questions or concerns about the content, text or information contained within the body of this dictation should be directly addressed to the provider for clarification. Admission and Anticipated Discharge Date Admission Date: March 18, 2025 Subjective Patient seen and examined at bedside. No acute distress, no adverse events overnight Overall he says he is feeling much better compared to how he came to the hospital He was saturating 97% on room air Denies any chest pain, coughing up and bringing up phlegm. It has mellowed down significantly No hemoptysis Fair appetite No nausea vomiting Denied any headache Review of Systems 2 Review of Systems: All systems reviewed & are unremarkable except as noted in Subjective Physical Exam 2 Physical Exam: Constitutional: No acute distress HEENT: EOMI, PERRLA Respiratory system: Good air entry bilaterally, no rhonchi, no wheeze, minimal crackles left lower lobe CVS: S1-S2 positive, no murmurs or gallops Abdomen: Soft, nontender, nondistended, positive bowel sounds x4 Extremities: +2 pulses bilaterally radialis/ dorsalis pedis, no cyanosis, no edema Neuro: Awake alert oriented x3 Psych: Normal mood and affect G/U: No Begum Skin: no rashes, warm and dry Lymphatic: no cervical or axillary lymphadenopathy Results & Data Results & Data Vital Signs (Past 12 Hours) Vital Signs Temp Pulse Pulse Resp BP Pulse Ox O2 Del Method 03/21/25 07:34 36.6 C 76 18 120/81 92 Oxymask 03/21/25 07:12 85 18 96 Nasal Cannula 03/21/25 03:59 36.6 C 70 18 124/77 98 Nasal Cannula 03/20/25 23:20 36.7 C 84 18 123/82 94 Room Air 03/20/25 22:56 103 H 03/20/25 22:29 Room Air, Nasal Cannula O2 Flow Rate 03/21/25 07:34 2 03/21/25 07:12 2 03/21/25 03:59 2 03/20/25 23:20 03/20/25 22:56 03/20/25 22:29 Laboratory Results 03/21/25 06:19 03/21/25 06:19 PG Care Time/CCT Total # of Minutes Spent Total Time Spent with Patient: Total time spent is greater than 50% in coordination of care (as documented) at patient's floor/unit and/or counseling patient: Coding Level of Care Code 88156 SUB INP/OBS CARE 2/35MIN Diagnoses COPD with emphysema J43.9 Acute hypoxic respiratory failure J96.01 Bilateral lower lobe pneumonia J18.9 Ex-smoker Z87.891 VY (obstructive sleep apnea) G47.33
[2025-03-21 10:10] VITALS: O2SAT 97
[2025-03-21 11:18] VITALS: RESP 20; TEMP 97.7
--- NOTE | 2025-03-21 12:15 | Hospitalist Progress Note ---
Date of Service March 21, 2025 Assessment & Plan (1) Bilateral lower lobe pneumonia: (2) Acute exacerbation of chronic obstructive airways disease: (3) Acute hypoxic respiratory failure: Plan: Patient is 49 year old male with PMH CAD s/p stents, familial hy percholesterolemia, emphysema, GERD presented to ER with c/o continued cough, SOB, low home pulse ox who returns today after [facility] admission 03/13/25-03/15/25 for acute hypoxic RLL pneumonia, +adenovirus treated with IV Unasyn, doxycycline, prednisone 40mg daily. Had 2 step completed prior to discharge with no oxygen requirement. Discharged on oral doxycycline, Augmentin and prednisone 40mg daily. Acute hypoxic respiratory failure COPD exacerbation Multifocal pneumonia Recent adenovirus infection Could have underlying sleep apnea --Chest CTA: No pulmonary emboli identified. Patchy lower lobe predominate opacities are suggestive of multifocal bronchopneumonia. Emphysema. Mild likely reactive mediastinal lymphadenopathy. Age advanced coronary arterial calcifications. --Urine for Legionella pending --Sputum culture: Pinpoint growth --Procalcitonin negative, nasal MRSA negative Continue nebs, Levaquin, Perforomist, prednisone Weaned off of supplemental oxygen Appreciate pulmonology input 2 step: Did not qualify for supplemental oxygen Plan to discharge on Anoro as recommended by pulmonology Will benefit from following with pulmonology on discharge Plan to discharge home today Nocturnal hypoxia Needs supplemental oxygen arranged prior to discharge Recommended polysomnography as outpatient Erythematous rash--resolved Noted on bilateral feet--localized DD: Contact dermatitis Received IV Solu-Medrol, Antihistamine Benadryl as needed Epistaxis Afrin, TXA as needed Humidification of supplemental oxygen Resolved (4) CAD (coronary artery disease): Plan: S/P prior coronary invention 2018 and single drug-eluting stent implantation in an overlap fashion with the old proximal stent in [facility] 08/2024 H/O prior beta amanuel intolerance in 2018 with atenolol Continue aspirin, Plavix, isosorbide, ezetimibe Familial hypercholesterolemia On Praluent Continue ezetimibe DVT Prophylaxis Lovenox SQ--- held due to epistaxis SCDs for now CODE STATUS Full code Disposition Home Admission and Anticipated Discharge Date Admission Date: March 18, 2025 Subjective Patient is seen and examined at bedside No new complaints Eager to get discharged Cough only minimal Dyspnea resolved Denies any chest pain, nausea, vomiting, abdominal pain, dizziness Plan to be discharged home today Review of Systems Review of Systems: All systems reviewed & are unremarkable except as noted in Subjective Physical Exam Physical Exam: Physical Exam: Vitals signs as noted above General Appearance:Moderately built and nourished, no apparent distress Head: normocephalic, Atraumatic Eyes: normal inspection, EOMI Neck: supple, Trachea midline Respiratory/Chest: Decreased breath sounds, CTA, No accessory muscle use Cardiovascular: S1, S2, No murmur Abdomen/GI:Soft, Non tender, Bowel sounds present Extremities/Musculoskeletal:normal inspection, no edema, B/L feet erythema Neurologic/Psych:AAOX3, grossly no focal neurological deficits Skin: normal color, warm Results & Data Results & Data Vital Signs (Past 12 Hours) Vital Signs Temp Pulse Pulse Pulse Resp Resp BP 03/21/25 11:17 36.5 C 90 20 118/74 03/21/25 10:09 89 15 03/21/25 09:45 90 87 15 03/21/25 07:34 36.6 C 76 18 120/81 03/21/25 07:12 85 18 03/21/25 03:59 36.6 C 70 18 124/77 Pulse Ox Pulse Ox Pulse Ox O2 Del Method O2 Flow Rate 03/21/25 11:17 97 Room Air 03/21/25 10:09 97 Room Air 03/21/25 09:45 97 96 03/21/25 07:34 92 Oxymask 2 03/21/25 07:12 96 Nasal Cannula 2 03/21/25 03:59 98 Nasal Cannula 2 Laboratory Results Short CBC 03/21/25 Range/Units 06:19 WBC 12.56 H (4.8-10.8) K/ul Hgb 14.4 (14.0-18.0) g/dL Hct 41.2 L (42.0-52.0) % Plt Count 286 (130-400) K/uL BMP 03/21/25 06:19 Sodium 137 Potassium 4.1 Chloride 104 Carbon Dioxide 25 BUN 19 Creatinine 0.87 Glucose 117 H Calcium 9.2
--- NOTE | 2025-03-21 12:31 | Discharge Summary ---
Date of Service March 21, 2025 Admission HPI Per Admitting Provider Patient is 49 year old male with PMH CAD s/p stents, familial hypercholesterolemia, emphysema, GERD presented to ER with c/o continued cough, SOB. Per inpatient chart review recent [facility] Hospital admission 03/13/25-03/15/25 for acute hypoxic respiratory failure, RLL pneumonia, +adenovirus treated with IV Unasyn, doxycycline, prednisone 40mg daily. Had 2 step completed prior to discharge with no oxygen requirement. Discharged on oral doxycycline, Augmentin and prednisone 40mg daily. Reports initially upon the day of returning home felt like was having improvement and then following day not feeling any better and states continues to have cough productive yellow, continues SOB with exertion. States cough is very severe at times. Using albuterol several times day without relief. Finished prednisone today. Reports home pulse ox down in 80's today at rest and came to ER for further evaluation. Denies fever/chills, V/D/C, GOMEZ, dizziness, syncope, CP, palpitations, rhinorrhea, abdominal pain, paresthesias, extremity edema, rashes, urinary symptoms. Admission Exam Per Admitting Provider General: no distress, WDWN Head: normocephalic, atraumatic Eyes: conjunctiva non-injected, anicteric ENT: normal inspection external ears, nose, mucous membranes moist Neck: supple, trachea midline Lungs: clear, no respiratory distress on current 2L via NC with O2 sat 95%, no wheezing/rhonchi/rales appreciated at this time (after neb tx in ER) CV: RRR, + murmur, no pretibial edema Abd: normal BS, soft, non-tender Ext: no cyanosis, no calf tenderness Neuro: A&O x 3, no focal deficits noted, normal affect Skin: warm, dry Principal Diagnosis Acute hypoxic respiratory failure COPD exacerbation Multifocal pneumonia Nocturnal hypoxia Discharge Data Allergies Allergy/AdvReac Type Severity Reaction Status Date / Time ceftriaxone Allergy Intermediate fatigue,wt Verified 03/18/25 16:00 loss, severe dehydration Consultations 03/18/25 14:52 ED Decision to Admit Stat 03/18/25 17:43 Consult Pulmonology Routine Procedures Performed Laboratory Results WBC 12.56 K/ul (4.8-10.8) H 03/21/25 06:19 RBC 4.52 M/uL (4.70-6.10) L 03/21/25 06:19 Hgb 14.4 g/dL (14.0-18.0) 03/21/25 06:19 Hct 41.2 % (42.0-52.0) L 03/21/25 06:19 MCV 91.2 fL (80.0-100.0) 03/21/25 06:19 MCH 31.9 pg (25.0-34.0) 03/21/25 06:19 MCHC 35.0 g/dL (32.0-36.0) 03/21/25 06:19 RDW Std Deviation 40.1 fL (36.4-46.3) 03/21/25 06:19 RDW Coeff of Juan Antonio 12.1 % (11.5-14.5) 03/21/25 06:19 Plt Count 286 K/uL (130-400) 03/21/25 06:19 MPV 8.8 fL (9.4-12.4) L 03/21/25 06:19 Immature Gran % (Auto) 3.9 % 03/19/25 05:25 Neut % (Auto) 67.7 % 03/19/25 05:25 Lymph % (Auto) 19.6 % 03/19/25 05:25 [place] % (Auto) 6.8 % 03/19/25 05:25 Eos % (Auto) 1.3 % 03/19/25 05:25 Baso % (Auto) 0.7 % 03/19/25 05:25 Neut # (Auto) 8.44 K/uL (1.40-6.50) H 03/19/25 05:25 Lymph # (Auto) 2.45 K/uL (1.20-3.40) 03/19/25 05:25 [place] # (Auto) 0.85 K/uL (0.11-0.59) H 03/19/25 05:25 Eos # (Auto) 0.16 K/uL (0.00-0.50) 03/19/25 05:25 Baso # (Auto) 0.09 K/uL (0.00-0.20) 03/19/25 05:25 Immature Gran # (Auto) 0.49 K/uL (0.01-0.20) H 03/19/25 05:25 Sodium 137 mmol/L (136-145) 03/21/25 06:19 Potassium 4.1 mmol/L (3.5-5.1) 03/21/25 06:19 Chloride 104 mmol/L (98-107) 03/21/25 06:19 Carbon Dioxide 25 mmol/L (21-32) 03/21/25 06:19 Anion Gap 8 (3-11) 03/21/25 06:19 BUN 19 mg/dl (6-23) 03/21/25 06:19 Creatinine 0.87 mg/dl (0.6-1.4) 03/21/25 06:19 Est Cr Clr Drug Dosing 108.4 ml/min 03/21/25 06:19 eGFR 107.10 03/21/25 06:19 BUN/Creatinine Ratio 21.8 (10-20) H 03/21/25 06:19 Glucose 117 mg/dl (70-99(Fasting)) H 03/21/25 06:19 Lactate 1.7 mmol/L (0.4-2.0) 03/18/25 18:02 Calcium 9.2 mg/dl (8.6-10.3) 03/21/25 06:19 Magnesium 2.1 mg/dl (1.7-2.4) 03/21/25 06:19 Total Bilirubin 0.6 mg/dl (0.2-1.0) 03/18/25 12:56 AST 29 U/L (13-39) 03/18/25 12:56 ALT 43 U/L (7-52) 03/18/25 12:56 Alkaline Phosphatase 76 U/L (34-104) 03/18/25 12:56 Troponin I High Sens 2.7 pg/ml (0-20) 03/18/25 12:56 Total Protein 7.0 gm/dl (6.0-8.3) 03/18/25 12:56 Albumin 3.8 gm/dl (3.4-5.0) 03/18/25 12:56 Globulin 3.2 gm/dl (2.5-4.0) 03/18/25 12:56 Albumin/Globulin Ratio 1.2 (0.9-2) 03/18/25 12:56 Procalcitonin < 0.02 ng/ml (0-0.5) 03/18/25 12:56 Urine Color Yellow 03/18/25 15:55 Urine Appearance Clear (Clear) 03/18/25 15:55 Urine pH 7.0 (4.5-7.5) 03/18/25 15:55 Ur Specific [place] 1.032 (1.000-1.030) H 03/18/25 15:55 Urine Protein Negative (Negative) 03/18/25 15:55 Urine Glucose (UA) Negative (Negative) 03/18/25 15:55 Urine Ketones Negative (Negative) 03/18/25 15:55 Urine Blood Negative (Negative) 03/18/25 15:55 Urine Nitrite Negative (Negative) 03/18/25 15:55 Urine Bilirubin Negative (Negative) 03/18/25 15:55 Urine Urobilinogen Negative (Negative) 03/18/25 15:55 Ur Leukocyte Esterase Negative (Negative) 03/18/25 15:55 Urine Comment 03/18/25 15:55 Nasal Screen MRSA (PCR) Negative (Negative) 03/18/25 15:58 Impressions Chest X-Ray 03/18/25 12:40 XR chest 2V PA/lateral HISTORY: 49 years-old Male sob, pneumonia acute shortness of breath COMPARISON: 03/13/2025 TECHNIQUE: PA and lateral views of the chest FINDINGS: Cardiomediastinal and hilar silhouettes are within normal limits. Coronary arterial stenting. No pneumothorax, pleural effusion, airspace consolidation or pulmonary edema. Bones of the chest appear grossly intact. IMPRESSION: No acute process. ACT 112: Negative or not required by law. The above report was generated using voice recognition software. It may contain grammatical, syntax or spelling errors. Electronically signed by: Jorge Vega M.D. 03/18/2025 1:08 PM Chest CTA 03/18/25 13:20 CT angio chest PE protocol CT DOSE: 824.25 mGy.cm HISTORY: 49 years-old Male with PE. Acute shortness of breath with hypoxia TECHNIQUE: Multiple CTA images of the chest were obtained after the intravenous administration of 112 ml Optiray. Coronal and sagittal MIPS were obtained from the axial data set and were submitted for review. All measurements were obtained according to NASCET criteria. A dose lowering technique was utilized a dhering to the principles of ALARA. COMPARISON: Chest radiographs of same FINDINGS: CTA: Heart is normal in size. No pericardial effusion. Moderate age advanced coronary arterial calcifications. No thoracic aortic aneurysm or dissection. There is mild atherosclerosis of the thoracic aorta. No central pulmonary emboli are seen, evaluation is limited secondary to respiratory motion. CT CHEST: Unremarkable thyroid. Borderline enlarged subcarinal lymph nodes measure up to 11 mm. These are nonspecific. No pneumothorax, pleural effusion or overt pulmonary edema. Mild patchy ground glass and nodular airspace opacities are most pronounced in the lower lobes. Mild associated bronchial wall thickening. Mild pulmonary emphysema. Central airways appear patent. The imaged upper abdominal structures are normal. The osseous structures appear intact. IMPRESSION: 1. No pulmonary emboli identified. 2. Patchy lower lobe predominate opacities are suggestive of multifocal bronchopneumonia. 3. Emphysema. 4. Mild likely reactive mediastinal lymphadenopathy. 5. Age advanced coronary arterial calcifications. ACT 112: Negative or not required by law. The above report was generated using voice recognition software. It may contain grammatical, syntax or spelling errors. Electronically signed by: Jorge Vega M.D. 03/18/2025 2:26 PM Ordered Studies 03/18/25 13:20 CT angio chest PE protocol Stat Hospital Course (1) Bilateral lower lobe pneumonia: (2) Acute exacerbation of chronic obstructive airways disease: (3) Acute hypoxic respiratory failure: Patient is 49 year old male with PMH CAD s/p stents, familial hypercholesterolemia, emphysema, GERD presented to ER with c/o continued cough, SOB, low home pulse ox who returns today after [facility] admission 03/13/25-03/15/25 for acute hypoxic RLL pneumonia, +adenovirus treated with IV Unasyn, doxycycline, prednisone 40mg daily. Had 2 step completed prior to discharge with no oxygen requirement. Discharged on oral doxycycline, Augmentin and prednisone 40mg daily. Acute hypoxic respiratory failure COPD exacerbation Multifocal pneumonia Recent adenovirus infection Could have underlying sleep apnea --Chest CTA: No pulmonary emboli identified. Patchy lower lobe predominate opacities are suggestive of multifocal bronchopneumonia. Emphysema. Mild likely reactive mediastinal lymphadenopathy. Age advanced coronary arterial calcifications. --Urine for Legionella pending --Sputum culture: Pinpoint growth --Procalcitonin negative, nasal MRSA negative Continue nebs, Levaquin, Perforomist, prednisone Weaned off of supplemental oxygen Appreciate pulmonology input 2 step: Did not qualify for supplemental oxygen Plan to discharge on Anoro as recommended by pulmonology Will benefit from following with pulmonology on discharge Plan to discharge home today Nocturnal hypoxia Needs supplemental oxygen arranged prior to discharge Recommended polysomnography as outpatient Erythematous rash--resolved Noted on bilateral feet--localized DD: Contact dermatitis Received IV Solu-Medrol, Antihistamine Benadryl as needed Epistaxis Afrin, TXA as needed Humidification of supplemental oxygen Resolved (4) CAD (coronary artery disease): S/P prior coronary invention 2017 and single drug-eluting stent implantation in an overlap fashion with the old proximal stent in [facility] 08/2024 H/O prior beta amanuel intolerance in 2018 with atenolol Continue aspirin, Plavix, isosorbide, ezetimibe Familial hypercholesterolemia On Praluent Continue ezetimibe DVT Prophylaxis Lovenox SQ--- held due to epistaxis SCDs for now CODE STATUS Full code Disposition Home Total Time Total Time Spent Total Time Spent (In Minutes): 53 minutes Discharge Plan Discharge Items Patient Disposition: Home - Self-Care Reason For Visit: PNEUMONIA Discharge Diagnosis: Acute hypoxic respiratory failure COPD exacerbation Multifocal pneumonia Nocturnal hypoxia Condition on Discharge: Good Activity: As commented below Exercise/Sports: Gradually increase as tolerated Non-emergency contact: Primary Care Provider and Electronic Game Developer Call non-emergency contact if: you have any medication questions, your symptoms worsen, your pain is concerning for you and you have a fever Follow-up/Referrals: Morris Park DO [Primary Care Provider] - (Date & Time 03/28/2025 11:00 AM Provider: Morris Park DO [facility] [place]) Diet: Heart Healthy Addtl Attending Provider Instructions: -- Follow-up with your primary care physician Dr. Morris Park on 03/28/2025 11:00 AM -- Follow-up with your numerical control router operator in 3 to 4 weeks as recommended -- Obtain sleep study (polysomnography) as recommended by your numerical control router operator -- Continue using 2 L of supplemental oxygen via nasal cannula at bedtime -- Complete the antibiotic levofloxacin, prednisone tapering course as p rescribed Prednisone tapering course Start taking prednisone 20 mg daily for 2 days, then take 10 mg daily for 2 days then stop Seek immediate medical attention if your symptoms reoccur or worsen Please review medication list provided on discharge for any medication changes as instructed. Please call if you have any questions or problems. You can reach a [facility] hospitalist on duty at [facility] 24 hours a day by calling [phone] Pending Studies at Discharge: Yes Studies:: Blood cultures Stand-Alone Forms: My [facility], Work/School Release, Smoking Cessation Medications and DC Order Prescriptions: New levofloxacin 750 mg Tablet 750 mg PO DAILY@1100 Qty: 4 0RF prednisone 10 mg tablet 10 mg PO DIRECTED Qty: 6 0RF Rx Instructions: Take prednisone 20 mg daily for 2 days, then take 10 mg daily for 2 days and stop umeclidinium-vilanterol [Anoro Ellipta] 62.5-25 mcg/actuation blister with device 1 inh inhalation DAILY Qty: 60 0RF Continued atorvastatin 80 mg tablet 80 mg PO HS isosorbide mononitrate 30 mg tablet extended release 24 hr 30 mg PO DAILY clopidogrel 75 mg tablet 75 mg PO DAILY allopurinol 100 mg tablet 100 mg PO DAILY benzonatate 100 mg capsule 100 mg PO TID PRN (Reason: Cough) pantoprazole 40 mg tablet,delayed release (DR/EC) 40 mg PO DAILY metformin 500 mg tablet extended release 24 hr 500 mg PO DAILY ezetimibe 10 mg tablet 10 mg PO DAILY bupropion HCl 300 mg tablet extended release 24 hr 300 mg PO DAILY Praluent Pen 75 mg/mL pen injector 75 mg SUBCUT Q14D albuterol sulfate 90 mcg/actuation HFA aerosol inhaler 2 puff INHALATION Q4H PRN (Reason: Shortness Of Breath Or Wheezing) Qty: 1 1RF Discontinued doxycycline hyclate 100 mg capsule 100 mg PO BID amoxicillin-pot clavulanate 875-125 mg tablet 1 tab PO BID Discharge Orders: Discharge Order (Routine); Ordered 03/21/25 Ordered By: Edinson Rubio Admission Data Admit Date/Time: 03/18/25 15:23 Attending Provider: Edinson Rubio Admit Provider: Odell Chinchilla Primary Care Provider: Morris Park Other Providers: Odell Chinchilla; Jarod Chowdhury
[2025-03-21 14:45] VITALS: BP 113/72; PULSE 90
== END 2025-03-21 16:17 | disposition home or self-care (01) | DRG 189 ==
LOC: ED 12:13 → SUATTDRO 15:23 → 2W 15:23

== ENCOUNTER 2025-04-01 17:35 | Inpatient (IN) ==
--- NOTE | 2025-04-01 17:58 | Emergency Department Note ---
Impression & Plan Chest pain, CAD (coronary artery disease) ED Provider Note NAME: ZACHARY GUZMAN AGE: 49 SEX: M : 1975 ARRIVES VIA: Walk-In INFORMANT: Patient, ED PROVIDER(S): Shady Verma MD CHIEF COMPLAINT: Chest pain MEDICAL DECISION MAKING: Patient presents due to concern for chest pain. IV was established and blood work was obtained. EKG without evidence of obvious STEMI. Concern for unstable angina. Mild chest discomfort currently but yet did receive nitro and IV morphine which were ordered. Patient's blood work shows a normal white count hemoglobin 13 normal platelet count kidney function is unremarkable. Initial troponin negative. Chest x-ray does not show evidence of obvious pneumonia. Upon reassessment the patient had resolution of chest pain. I did speak with the on-call hospitalist Dr. Torres and the patient was admitted to the medicine service. Discussion w/ other healthcare providers: None Prior /Outside records reviewed: None Differential diagnosis: Cardiac ischemia, aortic dissection, pulmonary embolism, pneumothorax, pneumonia, pericarditis, myocarditis, GERD, cholecystitis, pancreatitis, musculoskeletal, as well as other pathologies were considered. Diagnostics, as interpreted by me: ECG: Sinus with PVCs, rate of 88, normal intervals, normal axis no obvious STEMI. Cardiac monitoring: An order was placed for continuous cardiac monitoring. The monitor shows a rate of 89 with sinus rhythm. Patient was placed on pulse oximetry Medical decision rules: Heart score Imaging studies: I informally interpreted the patient's chest x-ray does not show obvious pneumonia with formal report to follow. HPI: Patient presents due to concern for chest pain. The patient reportedly had developed some chest pains during sexual intercourse yesterday. He states that once he stopped doing this that he had a resolution of his chest pain. States that he did have chest pain at rest that lasted for maybe 15 minutes in duration. He did take nitro yesterday and it did relieve his pain. He states though today he was not sure whether or not he was having cardiac related chest pain so he walked up a hill and "push himself." He did develop chest pain with exertion and states that he did have brief radiation of the pain down the arms. No nausea vomiting or diaphoresis. He reports that he did have 6 stents placed in 2018. He did have a recent admission to the hospital for pneumonia and hypoxic respiratory failure. Patient denies any current cough or fever no axillary calf pain no history of DVT or PE. He denies any recent surgeries or procedures. No recent prolonged car plane travel. He states today that he did have brief episodes of chest pain while at rest. He also reports that he is to follow with Dr. Perez but now follows with Dr. Mccabe. He did have a stent placed about 6 months prior. He states he is compliant with his medications to take his morning meds including his baby aspirin and Plavix today. PAST MEDICAL HISTORY: See Below PAST SURGICAL HISTORY: See Below SOCIAL HISTORY: See Below HOME MEDICATIONS: See Below ALLERGIES: See Below VITALS: See Below PHYSICAL EXAMINATION: GENERAL: NAD, non-toxic. EYE EXAM: Normal conjunctiva. PERRL, no anisocoria and EOM's grossly intact w/o pain. OROPHARYNX: Moist mucus membranes, grossly normal dentition. NECK: Trachea midline, no stridor. LUNGS: Clear to auscultation. Normal chest wall mechanics. HEART: NSR, no MRG. ABDOMEN: Abdomen soft, non-tender, no masses, no rebound or guarding. BACK: No CVA TTP. SKIN: No rashes and no bruising. UPPER EXTREMITIES: Upper extremities are grossly normal. LOWER EXTREMITIES: Grossly normal, no edema. Negative Homans' sign bilaterally. NEURO EXAM: Awake and alert, follows commands, no obvious facial asymmetry, normal speech, moves all 4 extremities. Past Med/Surg History Problem List (Updated 04/01/25 @ 19:51 by Shady Verma MD) Chest pain (Acute) Nocturnal hypoxia VY (obstructive sleep apnea) Ex-smoker COPD with emphysema Acute hypoxic respiratory failure Bilateral lower lobe pneumonia (Acute) Hypoxia (Acute) RLL pneumonia (Acute) Acute exacerbation of chronic obstructive airways disease (Acute) Chest pain (Acute) Dyslipidemia (Chronic) History of coronary artery stent placement (Chronic) CAD (coronary artery disease) (Chronic) Medical History Premature coronary artery disease Surgical History History of colonoscopy Social History Smoking Status: Former smoker Do You Dip or Chew Tobacco: Yes; Hx Alcohol Use: No Hx Substance Use: No Preferred Language: Nepali Communication Ability: Effective 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: No Beliefs That Will Affect Care: None marital status: Current Living Situation: Spouse Current Living Situation Comment: home with Feels Safe at Home: Yes Assistive Devices: None Allergies Allergies Allergy/AdvReac Type Severity Reaction Status Date / Time ceftriaxone Allergy Intermediate fatigue,wt Verified 03/18/25 16:00 loss, severe dehydration Home Meds Home Medications Medication Instructions Recorded Confirmed alirocumab 75 mg/mL subcutaneous 75 mg subcut Q14D 03/18/25 04/01/25 pen injector (Praluent Pen) allopurinol 100 mg tablet 100 mg PO DAILY 03/18/25 04/01/25 atorvastatin 80 mg tablet 80 mg PO HS 03/18/25 04/01/25 benzonatate 100 mg capsule 100 mg PO TID PRN Cough 03/18/25 04/01/25 bupropion HCl 300 mg 24 hr tablet, 300 mg PO DAILY 03/18/25 04/01/25 extended release clopidogrel 75 mg tablet 75 mg PO DAILY 03/18/25 04/01/25 ezetimibe 10 mg tablet 10 mg PO DAILY 03/18/25 04/01/25 isosorbide mononitrate 30 mg 30 mg PO DAILY 03/18/25 04/01/25 tablet,extended release 24 hr metformin 500 mg tablet,extended 500 mg PO DAILY 03/18/25 04/01/25 release 24 hr pantoprazole 40 mg tablet,delayed 40 mg PO DAILY 03/18/25 04/01/25 release Previous Rx's Medication Instructions Recorded albuterol sulfate 90 mcg/actuation 2 puff inhalation Q4H PRN 03/21/25 aerosol inhaler Shortness Of Breath Or Wheezing #1 inhaler umeclidinium 62.5 mcg-vilanterol 1 inh inhalation DAILY #60 ea 03/21/25 25 mcg/actuation powdr for inhalation (Anoro Ellipta) Results & Data (ED) Vital Signs Vital Signs - 24 hr 04/01/25 17:37 04/01/25 17:52 04/01/25 18:16 Temperature 36.7 C Temperature Source Temporal Artery Scan Pulse Rate 101 H 84 96 H Pulse Rate from SpO2 Sensor 93 H Pulse Rhythm Respiratory Rate 20 21 Respiratory Effort / Characteristics Non-Labored Spontaneous Respiratory Depth Normal Respiratory Pattern Regular Blood Pressure 152/77 H 133/78 Blood Pressure Mean 102 95 Pulse Oximetry 93 Oxygen Delivery Method Room Air Sepsis Recent Fever Within 48 Hours No Sepsis New/Unexplained Change in Mental Status No Sepsis Action Taken by Nursing No Action Required 04/01/25 18:34 Temperature Temperature Source Pulse Rate 87 Pulse Rate from SpO2 Sensor Pulse Rhythm Regular Respiratory Rate 26 H Respiratory Effort / Characteristics Respiratory Depth Respiratory Pattern Blood Pressure Blood Pressure Mean Pulse Oximetry 92 Oxygen Delivery Method Room Air Sepsis Recent Fever Within 48 Hours Sepsis New/Unexplained Change in Mental Status Sepsis Action Taken by Group Home Medications Current Medication List: was personally reviewed by me Laboratory Data Attestation: I reviewed the patient's lab results. 04/01/25 17:55 04/01/25 17:55 Lab Results 04/01/25 Range/Units 17:55 WBC 6.49 (4.8-10.8) K/ul RBC 4.16 L (4.70-6.10) M/uL Hgb 13.0 L (14.0-18.0) g/dL Hct 38.2 L (42.0-52.0) % MCV 91.8 (80.0-100.0) fL MCH 31.3 (25.0-34.0) pg MCHC 34.0 (32.0-36.0) g/dL RDW Std Deviation 40.1 (36.4-46.3) fL RDW Coeff of Juan Antonio 12.1 (11.5-14.5) % Plt Count 170 (130-400) K/uL MPV 8.9 L (9.4-12.4) fL Immature Gran % (Auto) 0.5 % Neut % (Auto) 64.3 % Lymph % (Auto) 21.9 % [place] % (Auto) 9.2 % Eos % (Auto) 3.5 % Baso % (Auto) 0.6 % Neut # (Auto) 4.17 (1.40-6.50) K/uL Lymph # (Auto) 1.42 (1.20-3.40) K/uL [place] # (Auto) 0.60 H (0.11-0.59) K/uL Eos # (Auto) 0.23 (0.00-0.50) K/uL Baso # (Auto) 0.04 (0.00-0.20) K/uL Immature Gran # (Auto) 0.03 (0.01-0.20) K/uL Sodium 139 (136-145) mmol/L Potassium 3.8 (3.5-5.1) mmol/L Chloride 108 H (98-107) mmol/L Carbon Dioxide 24 (21-32) mmol/L Anion Gap 7 (3-11) BUN 18 (6-23) mg/dl Creatinine 1.13 (0.6-1.4) mg/dl Est Cr Clr Drug Dosing 91.8 ml/min eGFR 80.67 BUN/Creatinine Ratio 15.9 (10-20) Glucose 176 H (70-99(Fasting)) mg/dl Calcium 9.0 (8.6-10.3) mg/dl Total Bilirubin 0.4 (0.2-1.0) mg/dl AST 30 (13-39) U/L ALT 57 H (7-52) U/L Alkaline Phosphatase 62 (34-104) U/L Troponin I High Sens 4.1 (0-20) pg/ml Total Protein 6.2 (6.0-8.3) gm/dl Albumin 3.8 (3.4-5.0) gm/dl Globulin 2.4 L (2.5-4.0) gm/dl Albumin/Globulin Ratio 1.6 (0.9-2) Lipase 34 (11-82) U/L Administered Medications Nitroglycerin (Nitroglycerin Sl 0.4 Mg/Tab Tab) 0.4 mg SL Q5M PRN PRN Reason: Chest Pain Stop: 05/01/25 17:50 Last Admin: 04/01/25 18:09 Dose: 0.4 mg Documented By: lorena Discontinued Medications Aspirin (Aspirin Chew 324 Mg) 243 mg PO NOW STA Stop: 04/01/25 18:02 Last Admin: 04/01/25 18:09 Dose: 243 mg Documented By: asm Sodium Chloride (Nss) 1,000 mls @ 999 mls/hr IV .Q1H1M STA Stop: 04/01/25 18:51 Last Admin: 04/01/25 18:14 Dose: 999 mls/hr Documented By: asm Morphine Sulfate (Morphine Sulfate 2 Mg/Ml Carp) 2 mg IV NOW STA Stop: 04/01/25 17:59 Last Admin: 04/01/25 18:09 Dose: 2 mg Documented By: asm Imaging Data Radiologist's Impression: Chest X-Ray 04/01/25 17:51 COMPARISON: 03/18/2025 FINDINGS: HEART: Normal in size. LUNGS: No focal consolidation, pleural effusion, or vascular congestion. MEEDIASTINUM: Unremarkable. BONES: Bony thorax appears intact. OTHER:Mild elevation of the right hemidiaphragm. IMPRESSION: No acute disease. Electronically signed by Viviana Johns 04-01-2025 7:03 PM Discharge Plan Visit Data Chief Complaint: Cardiac Assessment Stated Complaint: CHEST PAIN W/ EXERTION SINCE YEST AM, SOB, HRT HX ED Provider: Shady Verma Discharge Problem: Chest pain, CAD (coronary artery disease) Patient Disposition: Admitted As Inpatient Condition: Good Forms Stand Alone Forms: My [employer] Prescriptions Prescriptions: No Action atorvastatin 80 mg tablet 80 mg PO HS isosorbide mononitrate 30 mg tablet extended release 24 hr 30 mg PO DAILY clopidogrel 75 mg tablet 75 mg PO DAILY allopurinol 100 mg tablet 100 mg PO DAILY benzonatate 100 mg capsule 100 mg PO TID PRN (Reason: Cough) pantoprazole 40 mg tablet,delayed release (DR/EC) 40 mg PO DAILY metformin 500 mg tablet extended release 24 hr 500 mg PO DAILY ezetimibe 10 mg tablet 10 mg PO DAILY bupropion HCl 300 mg tablet extended release 24 hr 300 mg PO DAILY Praluent Pen 75 mg/mL pen injector 75 mg SUBCUT Q14D umeclidinium-vilanterol [Anoro Ellipta] 62.5-25 mcg/actuation blister with device 1 inh inhalation DAILY Qty: 60 0RF albuterol sulfate 90 mcg/actuation HFA aerosol inhaler 2 puff INHALATION Q4H PRN (Reason: Shortness Of Breath Or Wheezing) Qty: 1 1RF Referrals Referrals: [place] DO [Primary Care Provider] - Discharge Problem: Chest pain Qualifiers: Chest pain type: unspecified Qualified Code(s): R07.9 - Chest pain, unspecified CAD (coronary artery disease) Qualifiers: Coronary Disease-Associated Artery/Lesion type: [place] artery [place] vs. transplanted heart: [place] heart Associated angina: with unspecified form of angina Qualified Code(s): I25.119 - Atherosclerotic heart disease of [place] coronary artery with unspecified angina pectoris
[2025-04-01 18:08] LABS: Hematocrit (blood only) 38.2 % (42.0-52.0); Hemoglobin 13.0 g/dL (14.0-18.0); Immature Granulocytes # (auto) 0.03 K/uL (0.01-0.20); Immature Granulocytes % (auto) 0.5 %; Mean Corpuscular Hemoglobin 31.3 pg (25.0-34.0); Mean Corpuscular Volume 91.8 fL (80.0-100.0); Platelet Count 170 K/uL (130-400); RDW Standard Deviation 40.1 fL (36.4-46.3); Red Blood Count 4.16 M/uL (4.70-6.10); White Blood Count 6.49 K/ul (4.8-10.8)
[2025-04-01] MEDS: MoRPHine SULFATE 2 MG/ML CARP IV STA (18:09)
[2025-04-01] MEDS: ASPIRIN CHEW 324 MG PO STA (18:09)
[2025-04-01] MEDS: NITROGLYCERIN SL 0.4 MG/TAB TAB SL PRN (18:09)
[2025-04-01] MEDS: SODIUM CHLORIDE 0.9% 1,000 ML IV STA (18:14)
[2025-04-01 18:40] LABS: Alanine Aminotransferase 57.0 U/L (7-52); Albumin Globulin Ratio 1.6 (0.9-2); Albumin Level 3.8 gm/dl (3.4-5.0); Alkaline Phosphatase 62.0 U/L (34-104); Anion Gap 7.0 (3-11); Bilirubin,Total 0.4 mg/dl (0.2-1.0); Blood Urea Nitrogen 18.0 mg/dl (6-23); Calcium 9.0 mg/dl (8.6-10.3); Carbon Dioxide 24.0 mmol/L (21-32); Chloride 108.0 mmol/L (98-107); Creatinine Clr Calc Pharmacy 91.8 ml/min; Globulin 2.4 gm/dl (2.5-4.0); Glucose 176.0 mg/dl (70-99(Fasting)); Lipase 34.0 U/L (11-82); Potassium 3.8 mmol/L (3.5-5.1); Sodium 139.0 mmol/L (136-145); Total Protein 6.2 gm/dl (6.0-8.3)
--- NOTE | 2025-04-01 19:04 | XRay Report ---
COMPARISON: 03/18/2025 FINDINGS: HEART: Normal in size. LUNGS: No focal consolidation, pleural effusion, or vascular congestion. MEEDIASTINUM: Unremarkable. BONES: Bony thorax appears intact. OTHER:Mild elevation of the right hemidiaphragm. IMPRESSION: No acute disease. Electronically signed by Viviana Johns 04-01-2025 7:03 PM
[2025-04-01] MEDS: SODIUM CHLORIDE 0.9% 500 ML IV ONE (20:20)
--- NOTE | 2025-04-01 20:39 | History & Physical Report ---
Date of Service April 01, 2025 Assessment & Plan (1) Chest pain: Plan: 49-year-old male with past medical history significant for dyslipidemia, prediabetes, gout, obstructive sleep apnea currently on 2 L oxygen nightly history of CAD status post stents, hypertension, GERD, history of alcoholism but stopped drinking since August 2024, history of tobacco abuse stopped smoking since 2019, depression presents with chest pain. Yesterday morning with exertion he noted some chest pain. In the afternoon while sitting in the chair the chest pain came back lasted for some time. Today when he was walking uphill he was having palpitations and the chest pain came back and this time it was radiating to both the arms when he decided to come to the hospital. Nitro helped the pain. Currently has a headache. Denies dizziness. Vision is okay. No runny nose or sore throat. No cough. Afebrile. Recently had pneumonia. Patient states he is still recovering with cough and shortness of breath on exertion with his recent pneumonia. No abdominal pain. Normal bowel and bladder movements. Hemodynamics are okay. Chest pain Chest pain on exertion Initial EKG okay. Initial troponin 4.1 Will follow serial cardiac enzymes and echo N.p.o. from midnight Telemetry Consult cardiology in a.m. for further recommendations History of CAD S/p cardiac cath in 2018 with drug-eluting stents X6 to LAD and RCA In August 2024 status post cardiac cath with single drug-eluting stent implantation in overlapping fashion with old proximal stent in RCA On Plavix, aspirin, Praluent, Imdur, Zetia, atorvastatin Genomic familial hypercholesterolemia On atorvastatin, Zetia and Praluent Hypertension On Imdur Will monitor Obstructive sleep apnea Could not tolerate CPAP in the past Currently on 2 L oxygen while sleeping Patient has plan to repeat the sleep study GERD On Protonix History of tobacco abuse Continue home inhalers Gout Allopurinol Depression Bupropion Prediabetes Hold metformin Sliding scale Will check HbA1c levels DVT prophylaxis SCDs for now Disposition Observation telemetry Full code. History of Present Illness Chief Complaint: Chest pain Primary Care Provider: Morris Park DO 49-year-old male with past medical history significant for dyslipidemia, prediabetes, gout, obstructive sleep apnea currently on 2 L oxygen nightly history of CAD status post stents, hypertension, GERD, history of alcoholism but stopped drinking since August 2024, history of tobacco abuse stopped smoking since 2019, depression presents with chest pain. Yesterday morning with exertion he noted some chest pain. In the afternoon while sitting in the chair the chest pain came back lasted for some time. Today when he was walking uphill he was having palpitations and the chest pain came back and this time it was radiating to both the arms when he decided to come to the hospital. Nitro helped the pain. Currently has a headache. Denies dizziness. Vision is okay. No runny nose or sore throat. No cough. Afebrile. Recently had pneumonia. Patient states he is still recovering with cough and shortness of breath on exertion with his recent pneumonia. No abdominal pain. Normal bowel and bladder movements. Hemodynamics are okay. Past medical history. As mentioned above. Past surgical history. Cardiac stent placement. Colonoscopy. Excision of lipoma on the anterior mid chest. Left rotator cuff repair. Left shoulder arthroscopy. Social history. . Quit smoking . Smoked 2.5 pack a day for 22 years. Stopped drinking alcohol in August 2024. No drug use. Family history. Father has diabetes. CABG. Mother has diabetes. CABG. Diverticulitis. Allergies Allergy/AdvReac Type Severity Reaction Status Date / Time ceftriaxone Allergy Intermediate fatigue,wt Verified 03/18/25 16:00 loss, severe dehydration Home Medications Medication Instructions Recorded Confirmed Type alirocumab 75 mg/mL subcutaneous 75 mg subcut Q14D 03/18/25 04/01/25 History pen injector (Praluent Pen) allopurinol 100 mg tablet 100 mg PO DAILY 03/18/25 04/01/25 History atorvastatin 80 mg tablet 80 mg PO HS 03/18/25 04/01/25 History benzonatate 100 mg capsule 100 mg PO TID PRN Cough 03/18/25 04/01/25 History bupropion HCl 300 mg 24 hr tablet, 300 mg PO DAILY 03/18/25 04/01/25 History extended release clopidogrel 75 mg tablet 75 mg PO DAILY 03/18/25 04/01/25 History ezetimibe 10 mg tablet 10 mg PO DAILY 03/18/25 04/01/25 History isosorbide mononitrate 30 mg 30 mg PO DAILY 03/18/25 04/01/25 History tablet,extended release 24 hr metformin 500 mg tablet,extended 500 mg PO DAILY 03/18/25 04/01/25 History release 24 hr pantoprazole 40 mg tablet,delayed 40 mg PO DAILY 03/18/25 04/01/25 History release albuterol sulfate 90 mcg/actuation 2 puff inhalation Q4H PRN 03/21/25 04/01/25 Rx aerosol inhaler Shortness Of Breath Or Wheezing #1 inhaler umeclidinium 62.5 mcg-vilanterol 1 inh inhalation DAILY #60 ea 03/21/25 04/01/25 Rx 25 mcg/actuation powdr for inhalation (Anoro Ellipta) aspirin 81 mg tablet,delayed 81 mg PO DAILY 04/01/25 04/01/25 History release Past Med/Surg History Problem List (Updated 04/01/25 @ 19:51 by Shady Verma MD) Chest pain (Acute) Nocturnal hypoxia VY (obstructive sleep apnea) Ex-smoker COPD with emphysema Acute hypoxic respiratory failure Bilateral lower lobe pneumonia (Acute) Hypoxia (Acute) RLL pneumonia (Acute) Acute exacerbation of chronic obstructive airways disease (Acute) Chest pain (Acute) Dyslipidemia (Chronic) History of coronary artery stent placement (Chronic) CAD (coronary artery disease) (Chronic) Medical History Premature coronary artery disease Surgical History History of colonoscopy Social History Smoking Status: Former smoker Do You Dip or Chew Tobacco: Yes; Hx Alcohol Use: Yes Alcohol type: beer Hx Substance Use: No Preferred Language: [place] Communication Ability: Effective 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 ENT- oropharynx clear Neck- supple, no JVD. Lungs- clear to auscultation no wheezing or crackles Heart- regular rhythm; no murmur, no gallop. Abdomen- normal bowel sounds, soft, nontender, no distension Extremities- no pretibial edema, no erythema seen Neuro- alert, oriented PERRL, no facial palsy; no dysarthria; moves extremities Results & Data Results & Data Vital Signs (Past 12 Hours) Vital Signs Temp Pulse Resp BP Pulse Ox O2 Del Method 04/01/25 18:34 87 26 H 92 Room Air 04/01/25 18:16 96 H 21 133/78 04/01/25 17:52 84 04/01/25 17:37 36.7 C 101 H 20 152/77 H 93 Room Air Diagnostic Findings Laboratory Results WBC 6.49 K/ul (4.8-10.8) 04/01/25 17:55 RBC 4.16 M/uL (4.70-6.10) L 04/01/25 17:55 Hgb 13.0 g/dL (14.0-18.0) L 04/01/25 17:55 Hct 38.2 % (42.0-52.0) L 04/01/25 17:55 MCV 91.8 fL (80.0-100.0) 04/01/25 17:55 MCH 31.3 pg (25.0-34.0) 04/01/25 17:55 MCHC 34.0 g/dL (32.0-36.0) 04/01/25 17:55 RDW Std Deviation 40.1 fL (36.4-46.3) 04/01/25 17:55 RDW Coeff of Juan Antonio 12.1 % (11.5-14.5) 04/01/25 17:55 Plt Count 170 K/uL (130-400) 04/01/25 17:55 MPV 8.9 fL (9.4-12.4) L 04/01/25 17:55 Immature Gran % (Auto) 0.5 % 04/01/25 17:55 Neut % (Auto) 64.3 % 04/01/25 17:55 Lymph % (Auto) 21.9 % 04/01/25 17:55 [place] % (Auto) 9.2 % 04/01/25 17:55 Eos % (Auto) 3.5 % 04/01/25 17:55 Baso % (Auto) 0.6 % 04/01/25 17:55 Neut # (Auto) 4.17 K/uL (1.40-6.50) 04/01/25 17:55 Lymph # (Auto) 1.42 K/uL (1.20-3.40) 04/01/25 17:55 [place] # (Auto) 0.60 K/uL (0.11-0.59) H 04/01/25 17:55 Eos # (Auto) 0.23 K/uL (0.00-0.50) 04/01/25 17:55 Baso # (Auto) 0.04 K/uL (0.00-0.20) 04/01/25 17:55 Immature Gran # (Auto) 0.03 K/uL (0.01-0.20) 04/01/25 17:55 Sodium 139 mmol/L (136-145) 04/01/25 17:55 Potassium 3.8 mmol/L (3.5-5.1) 04/01/25 17:55 Chloride 108 mmol/L (98-107) H 04/01/25 17:55 Carbon Dioxide 24 mmol/L (21-32) 04/01/25 17:55 Anion Gap 7 (3-11) 04/01/25 17:55 BUN 18 mg/dl (6-23) 04/01/25 17:55 Creatinine 1.13 mg/dl (0.6-1.4) 04/01/25 17:55 Est Cr Clr Drug Dosing 91.8 ml/min 04/01/25 17:55 eGFR 80.67 04/01/25 17:55 BUN/Creatinine Ratio 15.9 (10-20) 04/01/25 17:55 Glucose 176 mg/dl (70-99(Fasting)) H 04/01/25 17:55 Calcium 9.0 mg/dl (8.6-10.3) 04/01/25 17:55 Total Bilirubin 0.4 mg/dl (0.2-1.0) 04/01/25 17:55 AST 30 U/L (13-39) 04/01/25 17:55 ALT 57 U/L (7-52) H 04/01/25 17:55 Alkaline Phosphatase 62 U/L (34-104) 04/01/25 17:55 Troponin I High Sens 4.1 pg/ml (0-20) 04/01/25 17:55 Total Protein 6.2 gm/dl (6.0-8.3) 04/01/25 17:55 Albumin 3.8 gm/dl (3.4-5.0) 04/01/25 17:55 Globulin 2.4 gm/dl (2.5-4.0) L 04/01/25 17:55 Albumin/Globulin Ratio 1.6 (0.9-2) 04/01/25 17:55 Lipase 34 U/L (11-82) 04/01/25 17:55 Impressions Chest X-Ray 04/01/25 17:51 COMPARISON: 03/18/2025 FINDINGS: HEART: Normal in size. LUNGS: No focal consolidation, pleural effusion, or vascular congestion. MEEDIASTINUM: Unremarkable. BONES: Bony thorax appears intact. OTHER:Mild elevation of the right hemidiaphragm. IMPRESSION: No acute disease. Electronically signed by Viviana Johns 04-01-2025 7:03 PM ECG Additional Comments: ECG. Sinus rhythm with occasional PVCs with a rate of 88. No acute ST changes seen. QTc 435 Code Status & VTE Plan VTE Prophylaxis Plan VTE Prophylaxis will be ordered: Yes (1) Chest pain Chest pain type: unspecified Qualified Code(s): R07.9 - Chest pain, unspecified
[2025-04-01] MEDS ORDERED: GLUCOSE 10 TAB/TUBE PO PRN (21:05)
[2025-04-01] MEDS ORDERED: NITROGLYCERIN SL 0.4 MG/TAB TAB SL PRN (21:05)
[2025-04-01] MEDS ORDERED: POLYETHYLENE (MIRALAX) 17 GM PACK PO PRN (21:05)
[2025-04-01] MEDS ORDERED: DEXTROSE 50% 50 ML SYRINGE IV PRN (21:05)
[2025-04-01] MEDS ORDERED: MoRPHine SULFATE 2 MG/ML CARP IV PRN (21:05)
[2025-04-01] MEDS ORDERED: BENZONATATE 100 MG CAPSULE PO PRN (21:05)
[2025-04-01] MEDS ORDERED: ALBUTEROL HFA 8 GM INHALER INH PRN (21:05)
[2025-04-01] MEDS ORDERED: GLUCOSE 40% GEL 15 GM TUBE PO PRN (21:05)
[2025-04-01] MEDS ORDERED: CARBOHYDRATES FOR HYPOGLYCEMIA PO PRN (21:05)
[2025-04-01] MEDS ORDERED: GLUCAGON FOR INJ 1 MG VIAL SQ PRN (21:05)
[2025-04-01] MEDS: INSULIN ASPART PER UNIT CHARGE SC SCH (22:17)
[2025-04-01] MEDS: ATORVASTATIN 40 MG TAB PO SCH (23:06)
[2025-04-02 06:05] LABS: Hematocrit (blood only) 38.8 % (42.0-52.0); Hemoglobin 13.1 g/dL (14.0-18.0); Immature Granulocytes # (auto) 0.06 K/uL (0.01-0.20); Immature Granulocytes % (auto) 0.8 %; Mean Corpuscular Hemoglobin 31.1 pg (25.0-34.0); Mean Corpuscular Volume 92.2 fL (80.0-100.0); Platelet Count 176 K/uL (130-400); RDW Standard Deviation 41.2 fL (36.4-46.3); Red Blood Count 4.21 M/uL (4.70-6.10); White Blood Count 7.30 K/ul (4.8-10.8)
[2025-04-02 06:35] LABS: Anion Gap 5.0 (3-11); Blood Urea Nitrogen 18.0 mg/dl (6-23); Calcium 8.8 mg/dl (8.6-10.3); Carbon Dioxide 26.0 mmol/L (21-32); Chloride 107.0 mmol/L (98-107); Creatinine Clr Calc Pharmacy 122.1 ml/min; Glucose 119.0 mg/dl (70-99(Fasting)); Magnesium 2.1 mg/dl (1.7-2.4); Potassium 4.1 mmol/L (3.5-5.1); Sodium 138.0 mmol/L (136-145)
[2025-04-02 06:58] LABS: Hemoglobin A1C 6.1 % (4.5-5.6)
[2025-04-02] MEDS: ASPIRIN 81 MG ECTAB PO SCH (08:41)
[2025-04-02] MEDS: ISOSORBIDE MONO EXTENDED REL 30 MG TABCR PO SCH (08:41)
[2025-04-02] MEDS: CLOPIDOGREL BISULFATE 75 MG TAB PO SCH (08:41)
[2025-04-02] MEDS: EZETIMIBE 10 MG TAB PO SCH (08:41)
[2025-04-02] MEDS: UMECLIDINIUM/VILANTEROL 62.5/25MCG 7 PUFFS/INHALER INH SCH (08:42)
--- NOTE | 2025-04-02 11:06 | XCELERA ---
[id number]
--- NOTE | 2025-04-02 11:08 | Cardiology Consultation ---
Date of Consultation April 02, 2025 Assessment & Plan (1) Chest pain: (2) Nocturnal hypoxia: (3) VY (obstructive sleep apnea): (4) History of coronary artery stent placement: (5) CAD (coronary artery disease): Plan CAD s/p PCI LASHAY LAD and RCA 11/13/2017; LASHAY RCA 09/03/2024 in the setting of unstable angina Familial Hypercholesterolemia HTN VY unable to tolerate CPAP, on nocturnal O2 Hx ETOH use, reformed Hx, Tobacco Use stopped 2017 Family history CAD -HR and BP well controlled -no acute ischemic changes noted on ECG -EF remains normal with no wall motion abnormalities -continue atorvastatin, Zetia, isosorbide, Praluent, clopidogrel, aspirin -reporting anginal equivalents similar to when he needed stents earlier this year -he and his are concerned given his prior cardiac history and CAD - They are concerned will coordinate inpatient ischemic evaluation - He would prefer to undergo an exercise study can attempt to coordinate exercise nuclear stress test, but cannot be completed until Friday - can resume diet for today and tommorow, NPO after MN Friday for stress test Friday Case discussed with Dr. Borges Please see attestation for additional recommendations. SABRA Payne Department of Cardiology, [facility] This chart was completed in part utilizing Speech Voice Recognition Software. Grammatical errors, random word insertions, pronoun errors, and incomplete sentences are an occasional consequence of this system due to software limitations, ambient noise, and hardware issues. Any formal questions or concerns about the content, text, or information contained within the body of this dictation should be directly addressed to the provider for clarification. Supervising Physician Co-Signing Physician Notes Patient seen and examined. Past medical history, surgical history, social history and family history have been reviewed. The medical record and all the above studies have been reviewed. Case DW ANJELICA including management. Patient states that he has stopped ETOH about 7 months ago. IMP: Angina - [place] R/O CAD s/p PCI LASHAY LAD and RCA 11/13/2017; LASHAY RCA 09/03/2024 HLD HTN - stable VY unable to tolerate CPAP, on nocturnal O2 Recommendations: continue DAPT continue Imdur Add Ranexa cont statin, zetia adjust anti-HTN meds keeping systolic BP between 100-140 mmHg avoid hypovolemia keep patient euvolemic DVT prophylaxis salt restriction for Exercise nuclear stress test on Friday NPO post Friday MN except meds History of Present Illness Reason for Consultation: Chest Pain Requesting Physician: Hospitalist Attending Physician: Rosa Hugo MD History of Present Illness 49 year old male seen in consultation regard to chest pain. He presented to the emergency room yesterday evening after developing an episode of palpitations and chest discomfort when walking up a hill radiating into both arms. He did take a dose of sublingual nitroglycerin which did help alleviate the discomfort. Reporting that the pain he was experiencing is similar to his anginal equivalent which he had in August however this episode was not nearly as severe. He was recently admitted for pneumonia and is still has a cough with some mild shortness of breath on exertion but has been improving from a respiratory standpoint. Allergies Allergy/AdvReac Type Severity Reaction Status Date / Time ceftriaxone Allergy Intermediate fatigue,wt Verified 03/18/25 16:00 loss, severe dehydration Home Medications Medication Instructions Recorded Confirmed Type alirocumab 75 mg/mL subcutaneous 75 mg subcut Q14D 03/18/25 04/01/25 History pen injector (Praluent Pen) allopurinol 100 mg tablet 100 mg PO DAILY 03/18/25 04/01/25 History atorvastatin 80 mg tablet 80 mg PO HS 03/18/25 04/01/25 History benzonatate 100 mg capsule 100 mg PO TID PRN Cough 03/18/25 04/01/25 History bupropion HCl 300 mg 24 hr tablet, 300 mg PO DAILY 03/18/25 04/01/25 History extended release clopidogrel 75 mg tablet 75 mg PO DAILY 03/18/25 04/01/25 History ezetimibe 10 mg tablet 10 mg PO DAILY 03/18/25 04/01/25 History isosorbide mononitrate 30 mg 30 mg PO DAILY 03/18/25 04/01/25 History tablet,extended release 24 hr metformin 500 mg tablet,extended 500 mg PO DAILY 03/18/25 04/01/25 History release 24 hr pantoprazole 40 mg tablet,delayed 40 mg PO DAILY 03/18/25 04/01/25 History release albuterol sulfate 90 mcg/actuation 2 puff inhalation Q4H PRN 03/21/25 04/01/25 Rx aerosol inhaler Shortness Of Breath Or Wheezing #1 inhaler umeclidinium 62.5 mcg-vilanterol 1 inh inhalation DAILY #60 ea 03/21/25 04/01/25 Rx 25 mcg/actuation powdr for inhalation (Anoro Ellipta) aspirin 81 mg tablet,delayed 81 mg PO DAILY 04/01/25 04/01/25 History release Patient History Medical History Premature coronary artery disease Surgical History History of colonoscopy Social History Smoking Status: Former smoker Do You Dip or Chew Tobacco: Yes; Hx Alcohol Use: Yes Alcohol type: beer Hx Substance Use: No Preferred Language: Persian Communication Ability: Effective Line Service Technician Required: No Beliefs That Will Affect Care: None marital status: Current Living Situation: Spouse Current Living Situation Comment: home with Other Information That Helps Us Care for You: No Feels Safe at Home: Yes Safety Concerns: Feels Safe At This Time Assistive Devices: None Review of Systems Review of Systems: All systems reviewed & are unremarkable except as noted in HPI & below Respiratory: + dyspnea on exertion Cardiovascular: + chest pain and + palpitations; no sync ope and no edema Physical Exam Constitutional: WD/WN, vitals as above well developed and well nourished; not ill appearing Neck: trachea midline, no thyromegaly Respiratory: normal respiratory effort, + cough and symmetric chest movement; no respiratory distress Auscultation: + diminished lung sounds Cardiovascular: Rate/Rhythm: regular rate and regular rhythm Heart Sounds: normal S1 and normal S2 Gastrointestinal (Abdomen): normal bowel sounds, soft, nontender, no hepatosplenomegaly Musculoskeletal: no cyanosis or clubbing, extremities motor strength 5/5 Skin: no rashes, warm and dry Psychiatric: A+Ox3, euthymic affect Results & Data Vital Signs (Past 12 Hours) Vital Signs Temp Pulse Pulse Resp BP Pulse Ox O2 Del Method 04/02/25 10:05 76 04/02/25 07:34 36.9 C 70 18 126/85 94 Room Air 04/02/25 05:32 Room Air 04/02/25 05:30 36.3 C L 71 16 114/77 96 Room Air 04/02/25 04:57 68 18 126/81 97 Room Air 04/02/25 03:21 73 18 04/02/25 03:12 70 18 04/02/25 00:32 94 Nasal Cannula 04/01/25 23:00 69 16 123/82 94 Room Air O2 Flow Rate 04/02/25 10:05 04/02/25 07:34 04/02/25 05:32 04/02/25 05:30 04/02/25 04:57 04/02/25 03:21 04/02/25 03:12 04/02/25 00:32 2 04/01/25 23:00 Laboratory Results Cardiac Enzymes 04/01/25 04/01/25 04/02/25 Range/Units 17:55 20:29 05:44 AST 30 (13-39) U/L Troponin I High Sens 4.1 5.2 3.4 (0-20) pg/ml CBC 04/01/25 04/02/25 Range/Units 17:55 05:44 WBC 6.49 7.30 (4.8-10.8) K/ul RBC 4.16 L 4.21 L (4.70-6.10) M/uL Hgb 13.0 L 13.1 L (14.0-18.0) g/dL Hct 38.2 L 38.8 L (42.0-52.0) % Plt Count 170 176 (130-400) K/uL Neut # (Auto) 4.17 4.75 (1.40-6.50) K/uL Lymph # (Auto) 1.42 1.43 (1.20-3.40) K/uL Pender # (Auto) 0.60 H 0.74 H (0.11-0.59) K/uL Eos # (Auto) 0.23 0.27 (0.00-0.50) K/uL Baso # (Auto) 0.04 0.05 (0.00-0.20) K/uL Comprehensive Metabolic Panel 04/01/25 04/02/25 Range/Units 17:55 05:44 Sodium 139 138 (136-145) mmol/L Potassium 3.8 4.1 (3.5-5.1) mmol/L Chloride 108 H 107 (98-107) mmol/L Carbon Dioxide 24 26 (21-32) mmol/L BUN 18 18 (6-23) mg/dl Creatinine 1.13 0.85 (0.6-1.4) mg/dl Glucose 176 H 119 H (70-99(Fasting)) mg/dl Calcium 9.0 8.8 (8.6-10.3) mg/dl AST 30 (13-39) U/L ALT 57 H (7-52) U/L Alkaline Phosphatase 62 (34-104) U/L Total Protein 6.2 (6.0-8.3) gm/dl Albumin 3.8 (3.4-5.0) gm/dl Intake and Output 04/01/25 04/02/25 04/02/25 22:59 06:59 14:59 Intake Total 1500 / 1500 Output Total 0 / 0 Balance 1500 / 1500 0 / 1500 Intake: IV 1500 / 1500 Sodium Chloride 0.9% 500 ml @ 1500 / 1500 999 mls/hr IV .Q31M ONE Rx#: [id number] Output: Urine 0 / 0 Other: Weight 91.3 kg Weight Measurement Method Built in [facility] Diagnostic Findings Laboratory Results WBC 7.30 K/ul (4.8-10.8) 04/02/25 05:44 RBC 4.21 M/uL (4.70-6.10) L 04/02/25 05:44 Hgb 13.1 g/dL (14.0-18.0) L 04/02/25 05:44 Hct 38.8 % (42.0-52.0) L 04/02/25 05:44 MCV 92.2 fL (80.0-100.0) 04/02/25 05:44 MCH 31.1 pg (25.0-34.0) 04/02/25 05:44 MCHC 33.8 g/dL (32.0-36.0) 04/02/25 05:44 RDW Std Deviation 41.2 fL (36.4-46.3) 04/02/25 05:44 RDW Coeff of Juan Antonio 12.3 % (11.5-14.5) 04/02/25 05:44 Plt Count 176 K/uL (130-400) 04/02/25 05:44 MPV 8.5 fL (9.4-12.4) L 04/02/25 05:44 Immature Gran % (Auto) 0.8 % 04/02/25 05:44 Neut % (Auto) 65.1 % 04/02/25 05:44 Lymph % (Auto) 19.6 % 04/02/25 05:44 Pender % (Auto) 10.1 % 04/02/25 05:44 Eos % (Auto) 3.7 % 04/02/25 05:44 Baso % (Auto) 0.7 % 04/02/25 05:44 Neut # (Auto) 4.75 K/uL (1.40-6.50) 04/02/25 05:44 Lymph # (Auto) 1.43 K/uL (1.20-3.40) 04/02/25 05:44 Pender # (Auto) 0.74 K/uL (0.11-0.59) H 04/02/25 05:44 Eos # (Auto) 0.27 K/uL (0.00-0.50) 04/02/25 05:44 Baso # (Auto) 0.05 K/uL (0.00-0.20) 04/02/25 05:44 Immature Gran # (Auto) 0.06 K/uL (0.01-0.20) 04/02/25 05:44 Sodium 138 mmol/L (136-145) 04/02/25 05:44 Potassium 4.1 mmol/L (3.5-5.1) 04/02/25 05:44 Chloride 107 mmol/L (98-107) 04/02/25 05:44 Carbon Dioxide 26 mmol/L (21-32) 04/02/25 05:44 Anion Gap 5 (3-11) 04/02/25 05:44 BUN 18 mg/dl (6-23) 04/02/25 05:44 Creatinine 0.85 mg/dl (0.6-1.4) 04/02/25 05:44 Est Cr Clr Drug Dosing 122.1 ml/min 04/02/25 05:44 eGFR 107.85 04/02/25 05:44 BUN/Creatinine Ratio 21.2 (10-20) H 04/02/25 05:44 Glucose 119 mg/dl (70-99(Fasting)) H 04/02/25 05:44 POC Glucose 117 mg/dl (70-99) H 04/02/25 06:16 Estimat Average Glucose 128 mg/dl 04/02/25 05:44 Hemoglobin A1c 6.1 % (4.5-5.6) H 04/02/25 05:44 Calcium 8.8 mg/dl (8.6-10.3) 04/02/25 05:44 Magnesium 2.1 mg/dl (1.7-2.4) 04/02/25 05:44 Total Bilirubin 0.4 mg/dl (0.2-1.0) 04/01/25 17:55 AST 30 U/L (13-39) 04/01/25 17:55 ALT 57 U/L (7-52) H 04/01/25 17:55 Alkaline Phosphatase 62 U/L (34-104) 04/01/25 17:55 Troponin I High Sens 3.4 pg/ml (0-20) 04/02/25 05:44 Total Protein 6.2 gm/dl (6.0-8.3) 04/01/25 17:55 Albumin 3.8 gm/dl (3.4-5.0) 04/01/25 17:55 Globulin 2.4 gm/dl (2.5-4.0) L 04/01/25 17:55 Albumin/Globulin Ratio 1.6 (0.9-2) 04/01/25 17:55 Lipase 34 U/L (11-82) 04/01/25 17:55 Impressions Chest X-Ray 04/01/25 17:51 COMPARISON: 03/18/2025 FINDINGS: HEART: Normal in size. LUNGS: No focal consolidation, pleural effusion, or vascular congestion. MEEDIASTINUM: Unremarkable. BONES: Bony thorax appears intact. OTHER:Mild elevation of the right hemidiaphragm. IMPRESSION: No acute disease. Electronically signed by Viviana Johns 04-01-2025 7:03 PM Medications Administered Current Inpatient Medications Acetaminophen (Acetaminophen 325 Mg Tab) 650 mg PO Q4H PRN PRN Reason: Pain or Fever Stop: 05/01/25 21:04 Albuterol (Albuterol Hfa 8 Gm Inhaler) 2 puffs INH Q4H PRN PRN Reason: Shortness Of Breath Or Wheezing Stop: 05/01/25 21:04 Allopurinol (Allopurinol 100 Mg Tab) 100 mg PO DAILY STANLEY Stop: 05/02/25 08:59 Last Admin: 04/02/25 08:40 Dose: Not Given Aspirin (Aspirin 81 Mg Ectab) 81 mg PO DAILY STANLEY Stop: 05/02/25 08:59 Last Admin: 04/02/25 08:41 Dose: 81 mg Atorvastatin Calcium (Atorvastatin 40 Mg Tab) 80 mg PO HS STANLEY Stop: 05/01/25 21:04 Last Admin: 04/01/25 23:06 Dose: 80 mg Benzonatate (Benzonatate 100 Mg Capsule) 100 mg PO TID PRN PRN Reason: Cough Stop: 05/01/25 21:04 Bupropion HCl (Bupropion Xl 300 Mg Tabcr) 300 mg PO DAILY STANLEY Stop: 05/02/25 08:59 Last Admin: 04/02/25 08:41 Dose: 300 mg Clopidogrel Bisulfate (Clopidogrel Bisulfate 75 Mg Tab) 75 mg PO DAILY STANLEY Stop: 05/02/25 08:59 Last Admin: 04/02/25 08:41 Dose: 75 mg Dextrose (Dextrose 50% 50 Ml Syringe) 25 - 50 ml IV UD PRN; Protocol PRN Reason: Hypoglycemia Protocol Stop: 05/01/25 21:04 Ezetimibe (Ezetimibe 10 Mg Tab) 10 mg PO DAILY STANLEY Stop: 05/02/25 08:59 Last Admin: 04/02/25 08:41 Dose: 10 mg Glucagon (Glucagon For Inj 1 Mg Vial) 1 mg SQ UD PRN; Protocol PRN Reason: Hypoglycemia Protocol Stop: 05/01/25 21:04 Glucose (Glucose 40% Gel 15 Gm Tube) 15 - 30 gm PO UD PRN; Protocol PRN Reason: Hypoglycemia Protocol Stop: 05/01/25 21:04 Glucose (Glucose 10 Tab/Tube) 4 - 8 tab PO UD PRN; Protocol PRN Reason: Hypoglycemia Protocol Stop: 05/01/25 21:04 Insulin Aspart (Insulin Aspart Per Unit Charge) 0 units SC Q6 STANLEY Stop: 05/01/25 21:04 Last Admin: 04/02/25 06:37 Dose: Not Given Isosorbide Mononitrate (Isosorbide Pender Extended Rel 30 Mg Tabcr) 30 mg PO DAILY STANLEY Stop: 05/02/25 08:59 Last Admin: 04/02/25 08:41 Dose: 30 mg Miscellaneous (Carbohydrates For Hypoglycemia ) 15 - 30 gm PO UD PRN PRN Reason: Hypoglycemia Protocol Stop: 05/01/25 21:04 Morphine Sulfate (Morphine Sulfate 2 Mg/Ml Carp) 2 mg IV Q30M PRN PRN Reason: Chest Pain Stop: 04/15/25 21:04 Nitroglycerin (Nitroglycerin Sl 0.4 Mg/Tab Tab) 0.4 mg SL Q5M PRN PRN Reason: Chest Pain Stop: 05/01/25 21:04 Pantoprazole Sodium (Pantoprazole 40 Mg Tab) 40 mg PO DAILY STANLEY Stop: 05/02/25 08:59 Last Admin: 04/02/25 08:40 Dose: 40 mg Polyethylene Glycol (Polyethylene (Miralax) 17 Gm Pack) 17 gm PO DAILY PRN PRN Reason: Constipation Stop: 05/01/25 21:04 Umeclidinium/Vilanterol (Umeclidinium/Vilanterol 62.5/25mcg 7 Puffs/Inhaler) 1 puffs INH DAILY STANLEY Stop: 05/02/25 08:59 Last Admin: 04/02/25 08:42 Dose: 1 puffs PG Care Time/CCT Total # of Minutes Spent Total Time Spent with Patient: Total time spent is greater than 50% in coordination of care (as documented) at patient's floor/unit and/or counseling patient: C[place] [address] IN/OBS CONSULT LVL 3,45M Patient Type Established Medical Decision Making High Complexity Diagnoses Chest pain R07.9 Chest pain type: unspecified Nocturnal hypoxia G47.34 VY (obstructive sleep apnea) G47.33 History of coronary artery stent placement Z95.5 CAD (coronary artery disease) I25.119 Associated angina: with unspecified form of angina Coronary Disease-Associated Artery/Lesion type: [place] artery [place] vs. transplanted heart: [place] heart (1) Chest pain Chest pain type: unspecified Qualified Code(s): R07.9 - Chest pain, unspecified (5) CAD (coronary artery disease) Associated angina: with unspecified form of angina Coronary Disease- Associated Artery/Lesion type: [place] artery [place] vs. transplanted heart: [place] heart Qualified Code(s): I25.119 - Atherosclerotic heart disease of [place] coronary artery with unspecified angina pectoris
[2025-04-02] MEDS: ACETAMINOPHEN 325 MG TAB PO PRN (11:23)
--- NOTE | 2025-04-02 14:30 | Hospitalist Progress Note ---
Date of Service April 02, 2025 Assessment & Plan (1) Chest pain: Plan: 49 yo M w/ PMH of HLD, prediabetes, gout, VY on 2L [place] O2, CAD s/p stents, HTN, GERD, alcoholism (quit August 2024), tobacco abuse (quit 2019), depression c/i w/ intermittent chest pain w/ exertion randomly at rest and w/ activity w/ radiation to both arms. Nitro helped him. Chest pain ro ACS Presents w/ chest pain, see above. Initial EKG okay. Initial troponin x4 neg. ECHO w/ EF of 60-65%, LV systolic fxn nl. cardio on board, NPO MN 04/03. History of CAD S/p cardiac cath in 2018 with drug-eluting stents X6 to LAD and RCA In August 2024 status post cardiac cath with single drug-eluting stent implantation in overlapping fashion with old proximal stent in RCA On Plavix, aspirin, Praluent, Imdur, Zetia, atorvastatin Genomic familial hypercholesterolemia: On atorvastatin, Zetia and Praluent Hypertension: On Imdur. Will monitor Obstructive sleep apnea Could not tolerate CPAP in the past Currently on 2 L oxygen while sleeping Patient has plan to repeat the sleep study GERD: On Protonix History of tobacco abuse: Continue home inhalers Gout: Pt states his pcp has stopped his Allopurinol Depression: Bupropion Prediabetes: Hold metformin. Sliding scale. Will check HbA1c levels DVT prophylaxis: SCDs for now Disposition: dispo w/ cardio clearance Full code. Admission and Anticipated Discharge Date Admission Date: April 01, 2025 Subjective Patient was seen and examined at bedside. Patient denies further chest pain in the hospital but reports shortness of breath with exertion. Patient denies fever/sore throat/acute changes in bowel or bladder habit. Patient reports eating otherwise okay. Physical Exam Physical Exam: General- Not in distress Head- atraumatic Eyes- PERRL. ENT- oropharynx clear Neck- supple, no JVD. Lungs- clear to auscultation no wheezing or crackles Heart- regular rhythm; no murmur, no gallop. Abdomen- normal bowel sounds, soft, nontender, no distension Extremities- no pretibial edema, no erythema seen Neuro- alert, oriented PERRL, no facial palsy; no dysarthria; moves extremities Results & Data Results & Data Vital Signs (Past 12 Hours) Vital Signs Temp Pulse Pulse Resp BP Pulse Ox O2 Del Method 04/02/25 14:15 82 04/02/25 11:47 36.8 C 77 18 124/85 94 Room Air 04/02/25 10:05 76 04/02/25 07:34 36.9 C 70 18 126/85 94 Room Air 04/02/25 05:32 Room Air 04/02/25 05:30 36.3 C L 71 16 114/77 96 Room Air 04/02/25 04:57 68 18 126/81 97 Room Air 04/02/25 03:21 73 18 04/02/25 03:12 70 18 (1) Chest pain Chest pain type: unspecified Qualified Code(s): R07.9 - Chest pain, unspecified
[2025-04-03 07:22] LABS: Hematocrit (blood only) 44.2 % (42.0-52.0); Hemoglobin 15.3 g/dL (14.0-18.0); Mean Corpuscular Hemoglobin 31.5 pg (25.0-34.0); Mean Corpuscular Volume 91.1 fL (80.0-100.0); Platelet Count 195 K/uL (130-400); RDW Standard Deviation 40.1 fL (36.4-46.3); Red Blood Count 4.85 M/uL (4.70-6.10); White Blood Count 8.33 K/ul (4.8-10.8)
[2025-04-03 07:48] LABS: Anion Gap 9.0 (3-11); Blood Urea Nitrogen 22.0 mg/dl (6-23); Calcium 9.6 mg/dl (8.6-10.3); Carbon Dioxide 24.0 mmol/L (21-32); Chloride 103.0 mmol/L (98-107); Creatinine Clr Calc Pharmacy 97.9 ml/min; Glucose 120.0 mg/dl (70-99(Fasting)); Magnesium 2.2 mg/dl (1.7-2.4); Potassium 4.0 mmol/L (3.5-5.1); Sodium 136.0 mmol/L (136-145)
--- NOTE | 2025-04-03 11:42 | Hospitalist Progress Note ---
Date of Service April 03, 2025 Assessment & Plan (1) Chest pain: Plan: 49 yo M w/ PMH of HLD, prediabetes, gout, VY on 2L [place] O2, CAD s/p stents, HTN, GERD, alcoholism (quit August 2024), tobacco abuse (quit 2019), depression c/i w/ intermittent chest pain w/ exertion randomly at rest and w/ activity w/ radiation to both arms. Nitro helped him. Chest pain ro ACS Presents w/ chest pain, see above. Initial EKG okay. Initial troponin x4 neg. ECHO w/ EF of 60-65%, LV systolic fxn nl. cardio on board, NPO MN 04/03. History of CAD S/p cardiac cath in 2018 with drug-eluting stents X6 to LAD and RCA In August 2024 status post cardiac cath with single drug-eluting stent implantation in overlapping fashion with old proximal stent in RCA On Plavix, aspirin, Praluent, Imdur, Zetia, atorvastatin Genomic familial hypercholesterolemia: On atorvastatin, Zetia and Praluent Hypertension: On Imdur. Will monitor Obstructive sleep apnea Could not tolerate CPAP in the past Currently on 2 L oxygen while sleeping Patient has plan to repeat the sleep study GERD: On Protonix History of tobacco abuse: Continue home inhalers Gout: Pt states his pcp has stopped his Allopurinol Depression: Bupropion Prediabetes: Hold metformin. Sliding scale. Will check HbA1c levels DVT prophylaxis: SCDs for now Disposition: dispo w/ cardio clearance Full code. Admission and Anticipated Discharge Date Admission Date: April 01, 2025 Subjective Patient was seen and examined at bedside. Patient denies further chest pain in the hospital but reports shortness of breath with exertion. Patient denies fever/sore throat/acute changes in bowel or bladder habit. Patient reports eating otherwise okay. Physical Exam Physical Exam: General- Not in distress Head- atraumatic Eyes- PERRL. ENT- oropharynx clear Neck- supple, no JVD. Lungs- clear to auscultation no wheezing or crackles Heart- regular rhythm; no murmur, no gallop. Abdomen- normal bowel sounds, soft, nontender, no distension Extremities- no pretibial edema, no erythema seen Neuro- alert, oriented PERRL, no facial palsy; no dysarthria; moves extremities Results & Data Results & Data Vital Signs (Past 12 Hours) Vital Signs Temp Pulse Resp BP Pulse Ox O2 Del Method O2 Flow Rate 04/03/25 11:14 36.4 C L 86 22 119/80 95 Room Air 04/03/25 07:21 36.3 C L 71 19 97/63 L 92 Room Air 04/03/25 03:08 36.9 C 76 20 118/85 98 Nasal Cannula 2 (1) Chest pain Chest pain type: unspecified Qualified Code(s): R07.9 - Chest pain, unspecified
--- NOTE | 2025-04-03 16:02 | Cardiology Progress Note ---
Date of Service April 03, 2025 Assessment & Plan (1) Chest pain: (2) Nocturnal hypoxia: (3) VY (obstructive sleep apnea): (4) History of coronary artery stent placement: (5) CAD (coronary artery disease): Plan 49 Y M admitted through the ER with c/o palpitations and chest discomfort when walking up a hill radiating into both arms resolved with sublingual nitroglycerin. Patient states that it was the same kind that he had in August 2024. Patient was recently admitted for pneumonia with persistent cough with some mild shortness of breath on exertion. Patient states that he has stopped ETOH about 7 months ago. IMP: Angina - OK R/O CAD s/p PCI LASHAY LAD and RCA 11/13/2017; LASHAY RCA 09/03/2024 HLD HTN - stable VY unable to tolerate CPAP, on nocturnal O2 Recommendations: continue DAPT continue Imdur cont Ranexa cont statin, zetia adjust anti-HTN meds keeping systolic BP between 100-140 mmHg avoid hypovolemia keep patient euvolemic DVT prophylaxis salt restriction for Exercise nuclear stress test tomorrow (Friday) NPO post MN tonight (Friday) except meds Admission and Anticipated Discharge Date Admission Date: April 01, 2025 Subjective Patient on exam is lying in bed in NAD; no c/o cp, palpitations, dizziness, LOC, cough, fever, nausea, vomiting, abdominal pain, urinary or bowel problem problems Patient still has shortness of breath on exertion when he was cleaning up and shaving this AM Review of Systems Review of Systems: as per HPI Respiratory: + dyspnea on exertion Physical Exam Constitutional: WD/WN, vitals as above well developed and well nourished; not ill appearing Neck: trachea midline, no thyromegaly Respiratory: normal respiratory effort and symmetric chest movement; no respiratory distress Cardiovascular: Rate/Rhythm: regular rate and regular rhythm Heart Sounds: normal S1 and normal S2 Gastrointestinal (Abdomen): normal bowel sounds, soft, nontender, no hepatosplenomegaly Musculoskeletal: no cyanosis or clubbing, extremities motor strength 5/5 Skin: no rashes, warm and dry Psychiatric: A+Ox3, euthymic affect Results & Data Vital Signs (Past 12 Hours) Vital Signs Vital Signs Temp 36.8 C 04/03/25 14:43 Pulse 78 04/03/25 15:15 Resp 20 04/03/25 14:43 BP 112/76 12/28/25 14:43 Pulse Ox 91 04/03/25 14:43 O2 Del Method Room Air 04/03/25 14:43 O2 Flow Rate 2 04/03/25 03:08 Intake & Output 04/02/25 04/03/25 04/03/25 18:59 06:59 18:59 Intake Total 520 / 1080 560 / 1080 Balance 520 / 1080 560 / 1080 Weight 91.4 kg Intake: Oral 520 / 1080 560 / 1080 Other: # Unmeasured Voids 1 Weight Measurement Method Built in [facility] Pulse Pulse Resp BP Pulse Ox O2 Del Method 04/03/25 15:15 78 04/03/25 14:43 36.8 C 87 20 112/76 91 Room Air 04/03/25 11:14 36.4 C L 86 22 119/80 95 Room Air 04/03/25 07:21 36.3 C L 71 19 97/63 L 92 Room Air Laboratory Results Laboratory Results WBC 8.33 K/ul (4.8-10.8) 04/03/25 06:25 RBC 4.85 M/uL (4.70-6.10) 04/03/25 06:25 Hgb 15.3 g/dL (14.0-18.0) 04/03/25 06:25 Hct 44.2 % (42.0-52.0) 04/03/25 06:25 MCV 91.1 fL (80.0-100.0) 04/03/25 06:25 MCH 31.5 pg (25.0-34.0) 04/03/25 06: MCHC 34.6 g/dL (32.0-36.0) 04/03/25 06:25 RDW Std Deviation 40.1 fL (36.4-46.3) 04/03/25 06:25 RDW Coeff of Juan Antonio 12.4 % (11.5-14.5) 04/03/25 06:25 Plt Count 195 K/uL (130-400) 04/03/25 06:25 MPV 8.9 fL (9.4-12.4) L 04/03/25 06:25 Immature Gran % (Auto) 0.8 % 04/02/25 05:44 Neut % (Auto) 65.1 % 04/02/25 05:44 Lymph % (Auto) 19.6 % 04/02/25 05:44 [place] % (Auto) 10.1 % 04/02/25 05:44 Eos % (Auto) 3.7 % 04/02/25 05:44 Baso % (Auto) 0.7 % 04/02/25 05:44 Neut # (Auto) 4.75 K/uL (1.40-6.50) 04/02/25 05:44 Lymph # (Auto) 1.43 K/uL (1.20-3.40) 04/02/25 05:44 [place] # (Auto) 0.74 K/uL (0.11-0.59) H 04/02/25 05:44 Eos # (Auto) 0.27 K/uL (0.00-0.50) 04/02/25 05:44 Baso # (Auto) 0.05 K/uL (0.00-0.20) 04/02/25 05:44 Immature Gran # (Auto) 0.06 K/uL (0.01-0.20) 04/02/25 05:44 Sodium 136 mmol/L (136-145) 04/03/25 06:25 Potassium 4.0 mmol/L (3.5-5.1) 04/03/25 06:25 Chloride 103 mmol/L (98-107) 04/03/25 06:25 Carbon Dioxide 24 mmol/L (21-32) 04/03/25 06:25 Anion Gap 9 (3-11) 04/03/25 06:25 BUN 22 mg/dl (6-23) 04/03/25 06:25 Creatinine 1.06 mg/dl (0.6-1.4) 04/03/25 06:25 Est Cr Clr Drug Dosing 97.9 ml/min 04/03/25 06:25 eGFR 87.11 04/03/25 06:25 BUN/Creatinine Ratio 20.8 (10-20) H 04/03/25 06:25 Glucose 120 mg/dl (70-99(Fasting)) H 04/03/25 06:25 POC Glucose 151 mg/dl (70-99) H 04/03/25 11:37 Estimat Average Glucose 128 mg/dl 04/02/25 05:44 Hemoglobin A1c 6.1 % (4.5-5.6) H 04/02/25 05:44 Calcium 9.6 mg/dl (8.6-10.3) 04/03/25 06:25 Phosphorus 4.0 mg/dl (2.5-4.9) 04/03/25 06:25 Magnesium 2.2 mg/dl (1.7-2.4) 04/03/25 06:25 Total Bilirubin 0.4 mg/dl (0.2-1.0) 04/01/25 17:55 AST 30 U/L (13-39) 04/01/25 17:55 ALT 57 U/L (7-52) H 04/01/25 17:55 Alkaline Phosphatase 62 U/L (34-104) 04/01/25 17:55 Troponin I High Sens 2.6 pg/ml (0-20) 04/02/25 16:55 Total Protein 6.2 gm/dl (6.0-8.3) 04/01/25 17:55 Albumin 3.8 gm/dl (3.4-5.0) 04/01/25 17:55 Globulin 2.4 gm/dl (2.5-4.0) L 04/01/25 17:55 Albumin/Globulin Ratio 1.6 (0.9-2) 04/01/25 17:55 Lipase 34 U/L (11-82) 04/01/25 17:55 Impressions Chest X-Ray 04/01/25 17:51 COMPARISON: 03/18/2025 FINDINGS: HEART: Normal in size. LUNGS: No focal consolidation, pleural effusion, or vascular congestion. MEEDIASTINUM: Unremarkable. BONES: Bony thorax appears intact. OTHER:Mild elevation of the right hemidiaphragm. IMPRESSION: No acute disease. Electronically signed by Viviana Johns 04-01-2025 7:03 PM Diagnostic Findings Cardiac Enzymes 04/02/25 Range/Units 16:55 Troponin I High Sens 2.6 (0-20) pg/ml CBC 04/03/25 Range/Units 06:25 WBC 8.33 (4.8-10.8) K/ul RBC 4.85 (4.70-6.10) M/uL Hgb 15.3 (14.0-18.0) g/dL Hct 44.2 (42.0-52.0) % Plt Count 195 (130-400) K/uL Comprehensive Metabolic Panel 04/03/25 Range/Units 06:25 Sodium 136 (136-145) mmol/L Potassium 4.0 (3.5-5.1) mmol/L Chloride 103 (98-107) mmol/L Carbon Dioxide 24 (21-32) mmol/L BUN 22 (6-23) mg/dl Creatinine 1.06 (0.6-1.4) mg/dl Glucose 120 H (70-99(Fasting)) mg/dl Calcium 9.6 (8.6-10.3) mg/dl Intake and Output 04/03/25 04/03/25 04/03/25 06:59 14:59 22:59 Intake Total 320 / 1080 Balance 320 / 1080 Intake: Oral 320 / 1080 Other: # Unmeasured Voids 1 Weight 91.4 kg Weight Measurement Method Built in [facility] Medications Administered Home Medications Medication Instructions Recorded Confirmed Last Taken alirocumab 75 mg/mL subcutaneous 75 mg subcut Q14D 03/18/25 04/01/25 03/18/25 pen injector (Praluent Pen) allopurinol 100 mg tablet 100 mg PO DAILY 03/18/25 04/01/25 03/18/25 atorvastatin 80 mg tablet 80 mg PO HS 03/18/25 04/01/25 03/17/25 benzonatate 100 mg capsule 100 mg PO TID PRN Cough 03/18/25 04/01/25 Unknown bupropion HCl 300 mg 24 hr tablet, 300 mg PO DAILY 03/18/25 04/01/25 03/18/25 extended release clopidogrel 75 mg tablet 75 mg PO DAILY 03/18/25 04/01/25 03/18/25 ezetimibe 10 mg tablet 10 mg PO DAILY 03/18/25 04/01/25 Unknown isosorbide mononitrate 30 mg 30 mg PO DAILY 03/18/25 04/01/25 03/18/25 tablet,extended release 24 hr metformin 500 mg tablet,extended 500 mg PO DAILY 03/18/25 04/01/25 03/18/25 release 24 hr pantoprazole 40 mg tablet,delayed 40 mg PO DAILY 03/18/25 04/01/25 03/18/25 release albuterol sulfate 90 mcg/actuation 2 puff inhalation Q4H PRN 03/21/25 04/01/25 Unknown aerosol inhaler Shortness Of Breath Or Wheezing #1 inhaler umeclidinium 62.5 mcg-vilanterol 1 inh inhalation DAILY #60 ea 03/21/25 04/01/25 Unknown 25 mcg/actuation powdr for inhalation (Anoro Ellipta) aspirin 81 mg tablet,delayed 81 mg PO DAILY 04/01/25 04/01/25 Unknown release Active Medications Generic Name Dose Route Start Last Admin Trade Name Freq PRN Reason Stop Dose Admin Acetaminophen 650 mg 04/01/25 21:05 04/02/25 11:23 Acetaminophen 325 Mg Tab PO 05/01/25 21:04 650 mg Q4H PRN Administration Pain or Fever Aspirin 81 mg 04/02/25 09:00 04/03/25 07:59 Aspirin 81 Mg Ectab PO 05/02/25 08:59 81 mg DAILY STANLEY Administration Atorvastatin Calcium 80 mg 04/01/25 21:05 04/02/25 20:31 Atorvastatin 40 Mg Tab PO 05/01/25 21:04 80 mg HS STANLEY Administration Bupropion HCl 300 mg 04/02/25 09:00 04/03/25 08:00 Bupropion Xl 300 Mg Tabcr PO 05/02/25 08:59 300 mg DAILY STANLEY Administration Clopidogrel Bisulfate 75 mg 04/02/25 09:00 04/03/25 07:59 Clopidogrel Bisulfate 75 Mg Tab PO 05/02/25 08:59 75 mg DAILY STANLEY Administration Ezetimibe 10 mg 04/02/25 09:00 04/03/25 07:59 Ezetimibe 10 Mg Tab PO 05/02/25 08:59 10 mg DAILY STANLEY Administration Insulin Aspart 0 units 04/01/25 21:05 04/03/25 12:11 Insulin Aspart Per Unit Charge SC 05/01/25 21:04 Not Given Q6 STANLEY Isosorbide Mononitrate 30 mg 04/02/25 09:00 04/03/25 07:59 Isosorbide [place] Extended Rel 30 Mg Tabcr PO 05/02/25 08:59 30 mg DAILY STANLEY Administration Pantoprazole Sodium 40 mg 04/02/25 09:00 04/03/25 07:59 Pantoprazole 40 Mg Tab PO 05/02/25 08:59 40 mg DAILY STANLEY Administration Umeclidinium/Vilanterol 1 puffs 04/02/25 09:00 12/28/25 07:59 Umeclidinium/Vilanterol 62.5/25mcg 7 Puffs/Inhaler INH 05/02/25 08:59 1 puffs DAILY STANLEY Administration PG Care Time/CCT Total # of Minutes Spent Total Time Spent with Patient: Total time spent is greater than 50% in coordination of care (as documented) at patient's floor/unit and/or counseling patient: Coding Level of Care Code 45508 SUB INP/OBS CARE 3/50MIN Diagnoses Chest pain R07.9 Chest pain type: unspecified Nocturnal hypoxia G47.34 VY (obstructive sleep apnea) G47.33 History of coronary artery stent placement Z95.5 CAD (coronary artery disease) I25.119 Associated angina: with unspecified form of angina Coronary Disease-Associated Artery/Lesion type: andreafski artery [place] vs. transplanted heart: andreafski heart (1) Chest pain Chest pain type: unspecified Qualified Code(s): R07.9 - Chest pain, unspecified (5) CAD (coronary artery disease) Associated angina: with unspecified form of angina Coronary Disease- Associated Artery/Lesion type: andreafski artery [place] vs. transplanted heart: andreafski heart Qualified Code(s): I25.119 - Atherosclerotic heart disease of andreafski coronary artery with unspecified angina pectoris
[2025-04-03] MEDS: RANOLAZINE 500 MG ER TAB PO SCH (20:11)
--- NOTE | 2025-04-03 20:41 | Electrocardiogram Report ---
Test Reason : Blood Pressure : */* mmHG Vent. Rate : 88 BPM Atrial Rate : 88 BPM P-R Int : 166 ms QRS Dur : 78 ms QT Int : 360 ms P-R-T Axes : 62 42 37 degrees QTcB Int : 435 ms Sinus rhythm with occasional Premature ventricular complexes Otherwise normal ECG When compared with ECG of 18-Mar-2025 12:51, Premature ventricular complexes are now Present Confirmed by Dianna Rausch (Jose) on 04/03/2025 8:40:46 PM Referred By: REFERRED SELF Confirmed By: Dianna Rausch
--- NOTE | 2025-04-04 11:01 | Electrocardiogram Report ---
Test Reason : Blood Pressure : */* mmHG Vent. Rate : 67 BPM Atrial Rate : 67 BPM P-R Int : 166 ms QRS Dur : 78 ms QT Int : 404 ms P-R-T Axes : 12 26 21 degrees QTcB Int : 426 ms Normal sinus rhythm Normal ECG When compared with ECG of 01-Apr-2025 17:44, (unconfirmed) Premature ventricular complexes are no longer Present Confirmed by Dianna Rausch (Jose) on 04/04/2025 11:01:34 AM Referred By: REFERRED SELF Confirmed By: Dianna Rausch
[2025-04-04] MEDS: REGADENOSON 0.4 MG/5 ML SYR IV ONE (13:06)
--- NOTE | 2025-04-04 13:19 | Myocardial Perfusion Study ---
Date of Service April 04, 2025 Myocardial Perfusion Study k Myocardial Perfusion Study Report Lexiscan stress procedure summary: Patient performed stress test according to Lexiscan protocol for 3.0 minutes, achieving a work level of 1.0 METS. The resting heart rate of 82 bpm yohana to a maximum heart rate of 115 bpm. This value represents 66% of maximal, age-predicted heart rate. The resting blood pressure of 110/82 mmHg yohana to a maximum blood pressure of 113/[address] ress test was stopped due to completion of protocol. Normal heart rate and blood pressure response to Lexiscan infusion. Symptoms: Shortness of breath. Resting ECG: Normal sinus rhythm. Stress ECG: No ischemia. Nuclear imaging: For the stress portion of the study 31.2 mCi of Tc 99m Cardiolite IV was injected at 12:05 PM on 04/04/2025. 30 minutes following the injection, imaging of the heart was performed in multiple projections. For the rest portion of the study 10.3 mCi of Tc 99m Cardiolite was injected IV at 10:30 AM. 1 hour following the injection, imaging of the heart was performed in the same projections. Raw data: No significant extracardiac uptake of isotope tracer Right ventricle: Not well-visualized Resting images: Normal perfusion Stress images: Normal perfusion Gated SPECT imaging: Normal left ventricular myocardial wall thickening and wall motion. Calculated left ventricular ejection fraction 53% Conclusion: 1. Normal Lexiscan myocardial nuclear perfusion imaging study without evidence of inducible ischemia, or myocardial scar. 2. Normal gated SPECT imaging. 3. The calculated ventricular ejection fraction is 53% Chris Bennett DO, [facility]
[2025-04-04 15:01] VITALS: BP 118/81; PULSE 93; RESP 20; TEMP 97.9; O2SAT 95
--- NOTE | 2025-04-04 16:59 | Discharge Summary ---
Date of Service April 04, 2025 Admission HPI Per Admitting Provider 49-year-old male with past medical history significant for dyslipidemia, prediabetes, gout, obstructive sleep apnea currently on 2 L oxygen nightly history of CAD status post stents, hypertension, GERD, history of alcoholism but stopped drinking since August 2024, history of tobacco abuse stopped smoking since 2019, depression presents with chest pain. Yesterday morning with exertion he noted some chest pain. In the afternoon while sitting in the chair the chest pain came back lasted for some time. Today when he was walking uphill he was having palpitations and the chest pain came back and this time it was radiating to both the arms when he decided to come to the hospital. Nitro helped the pain. Currently has a headache. Denies dizziness. Vision is okay. No runny nose or sore throat. No cough. Afebrile. Recently had pneumonia. Patient states he is still recovering with cough and shortness of breath on exertion with his recent pneumonia. No abdominal pain. Normal bowel and bladder movements. Hemodynamics are okay. Past medical history. As mentioned above. Past surgical history. Cardiac stent placement. Colonoscopy. Excision of lipoma on the anterior mid chest. Left rotator cuff repair. Left shoulder arthroscopy. Social history. . Quit smoking . Smoked 2.5 pack a day for 22 years. Stopped drinking alcohol in August 2024. No drug use. Family history. Father has diabetes. CABG. Mother has diabetes. CABG. Diverticulitis. Admission Exam Per Admitting Provider General- Not in distress Head- atraumatic Eyes- PERRL. ENT- oropharynx clear Neck- supple, no JVD. Lungs- clear to auscultation no wheezing or crackles Heart- regular rhythm; no murmur, no gallop. Abdomen- normal bowel sounds, soft, nontender, no distension Extremities- no pretibial edema, no erythema seen Neuro- alert, oriented PERRL, no facial palsy; no dysarthria; moves extremities Principal Diagnosis Chest pain, ro ACS Discharge Exam General- Not in distress Head- atraumatic Eyes- PERRL. ENT- oropharynx clear Neck- supple, no JVD. Lungs- clear to auscultation no wheezing or crackles Heart- regular rhythm; no murmur, no gallop. Abdomen- normal bowel sounds, soft, nontender, no distension Extremities- no pretibial edema, no erythema seen Neuro- alert, oriented PERRL, no facial palsy; no dysarthria; moves extremities Discharge Data Allergies Allergy/AdvReac Type Severity Reaction Status Date / Time ceftriaxone Allergy Intermediate fatigue,wt Verified 03/18/25 16:00 loss, severe dehydration Consultations 04/01/25 18:55 ED Decision to Admit Stat 04/02/25 08:00 Consult Cardiology Routine Hospital Course (1) Chest pain: 49 yo M w/ PMH of HLD, prediabetes, gout, VY on 2L NC O2, CAD s/p stents, HTN, GERD, alcoholism (quit August 2024), tobacco abuse (quit 2019), depression c/i w/ intermittent chest pain w/ exertion randomly at rest and w/ activity w/ radiation to both arms. Nitro helped him. Chest pain ro ACS Presents w/ chest pain, see above. Initial EKG okay. Initial troponin x4 neg. ECHO w/ EF of 60-65%, LV systolic fxn nl. cardio on board,s/p normal stress test. d/w cardio, dc on ranexa, plan for OP heart monitor. History of CAD S/p cardiac cath in 2017 with drug-eluting stents X6 to LAD and RCA In August 2024 status post cardiac cath with single drug-eluting stent implantation in overlapping fashion with old proximal stent in RCA On Plavix, aspirin, Praluent, Imdur, Zetia, atorvastatin Genomic familial hypercholesterolemia: On atorvastatin, Zetia and Praluent Hypertension: On Imdur. Will monitor Obstructive sleep apnea Could not tolerate CPAP in the past Currently on 2 L oxygen while sleeping Patient has plan to repeat the sleep study GERD: On Protonix History of tobacco abuse: Continue home inhalers Gout: Pt states his pcp has stopped his Allopurinol Depression: Bupropion Prediabetes: Hold metformin. Sliding scale. Will check HbA1c levels DVT prophylaxis: SCDs for now Disposition: dispo w/ cardio clearance Full code. Patient is being discharged with following instructions at the point of discharge: Follow-up with your primary care physician within a week time and likely you will need labs CBC/CMP/magnesium/phosphorus. Continue with your aspirin and Plavix. Avoid omeprazole while on Plavix. Cardiology evaluated you, your medications has been optimized. Follow-up with cardiology in 2 to 4 weeks time upon discharge. You will need heart monitor as an outpatient, coordinate with your cardiology office. If with worsening chest pain or exertional chest pain, report back to emergency immediately. Take your medications as prescribed. Please make sure that you are able to get your medications today by calling your pharmacy before you leave the hospital so that your treatment continuity is not broken. Home Health Attestation I certify that this patient is under my care and that I, or a physicians insurance claims assistant working with me, had a face to-face encounter that meets the home health [id number] encounter requirements with this patient. The encounter with the patient was in whole, or in part, for the following medical condition, which is the primary reason for home health care (list medical condition): I certify that, based on my findings, the following services are medically necessary home health services: My clinical findings support the need for the above services because: Further, I certify that my clinical findings support that this patient is homebound (i.e. absences from home require considerable and taxing effort and are for medical reasons or orthodoxy services or infrequently or of short duration when for other reasons) because: Certification for Home Health Services: Based on the above findings, I certify that this patient is confined to the home and needs intermittent halfway care, physical therapy and/or speech therapy or continues to need occupational therapy. The patient is under my care, and I have initiated the establishment of the plan of care. This patient will be followed by a physician who will periodically review the plan of care. Total Time Total Time Spent Total Time Spent (In Minutes): 40 Discharge Plan Discharge Items Patient Disposition: Home - Self-Care Reason For Visit: CHEST PAIN ON EXERTION Discharge Diagnosis: Chest pain, ro ACS Condition on Discharge: Good Activity: Resume your previous activity Non-emergency contact: Primary Care Provider Call non-emergency contact if: you have any medication questions and your symptoms worsen Follow-up/Referrals: [place], [Primary Care Provider] - Diet: Heart Healthy Fluids: 1800ml (7 cups) Addtl Attending Provider Instructions: Follow-up with your primary care physician within a week time and likely you will need labs CBC/CMP/magnesium/phosphorus. Continue with your aspirin and Plavix. Avoid omeprazole while on Plavix. Cardiology evaluated you, your medications has been optimized. Follow-up with cardiology in 2 to 4 weeks time upon discharge. You will need heart monitor as an outpatient, coordinate with your cardiology office. If with worsening chest pain or exertional chest pain, report back to emergency immediately. Take your medications as prescribed. Please make sure that you are able to get your medications today by calling your pharmacy before you leave the hospital so that your treatment continuity is not broken. Pending Studies at Discharge: No Stand-Alone Forms: My [facility], Work/School Release, Smoking Cessation Medications and DC Order Prescriptions: New nitroglycerin [Nitrostat] 0.4 mg Tablet, Sublingual 0.4 mg sublingual UD PRN (Reason: chest pain) Qty: 20 0RF ranolazine 500 mg Tablet Extended Release 12 Hr 500 mg PO BID Qty: 60 0RF Continued aspirin [Aspir-81] 81 mg Tablet,Delayed Release (Dr/Ec) 81 mg PO DAILY atorvastatin 80 mg tablet 80 mg PO HS isosorbide mononitrate 30 mg tablet extended release 24 hr 30 mg PO DAILY clopidogrel 75 mg tablet 75 mg PO DAILY benzonatate 100 mg capsule 100 mg PO TID PRN (Reason: Cough) pantoprazole 40 mg tablet,delayed release (DR/EC) 40 mg PO DAILY metformin 500 mg tablet extended release 24 hr 500 mg PO DAILY ezetimibe 10 mg tablet 10 mg PO DAILY bupropion HCl 300 mg tablet extended release 24 hr 300 mg PO DAILY Praluent Pen 75 mg/mL pen injector 75 mg SUBCUT Q14D umeclidinium-vilanterol [Anoro Ellipta] 62.5-25 mcg/actuation blister with device 1 inh inhalation DAILY Qty: 60 0RF albuterol sulfate 90 mcg/actuation HFA aerosol inhaler 2 puff INHALATION Q4H PRN (Reason: Shortness Of Breath Or Wheezing) Qty: 1 1RF Discontinued allopurinol 100 mg tablet 100 mg PO DAILY Discharge Orders: Discharge Order (Routine); Ordered 04/04/25 Ordered By: Rosa Hugo Admission Data Admit Date/Time: 04/03/25 16:26 Attending Provider: Rosa Hugo Admit Provider: Frankie Torres Primary Care Provider: [place] Other Providers: Frankie Torres; Cherie Dent; Buck Samuels; Jarrod Mccabe; Chris Bennett; Ry Perez; Juan Daniel Cordova; Smita Trinidad; Lolita Wright; Brittany Cartwright; Cristel Mckeon; Cherie Fajardo; Dimitrios Johnson; Robert Wooten; Mini Ga; Le Harding; Ade Salvador; Elo Junior; [place]; Leatha Mccabe; Gisela Kaminski; Rudy Borges; Gini Egan
--- NOTE | 2025-04-04 17:30 | Cardiology Progress Note ---
Date of Service April 04, 2025 Assessment & Plan (1) Chest pain: (2) Nocturnal hypoxia: (3) VY (obstructive sleep apnea): (4) History of coronary artery stent placement: (5) CAD (coronary artery disease): Plan Nuclear stress test negative for inducible ischemia. Continue antianginal therapies including isosorbide monohydrate, and Ranexa (added 04/02/2025). Outpatient 14-day ZIO monitor for further evaluation of palpitations. Consider addition of low-dose beta-amanuel pending clinical response to Ranexa and review of ZIO monitor. Continue dual antiplatelet therapy, statin therapy, and PCSK9 inhibitor. Appropriate sublingual nitroglycerin reviewed. Outpatient cardiology follow-up in 2 to 4 weeks. Chris Bennett DO, [facility] Admission and Anticipated Discharge Date Admission Date: April 03, 2025 Subjective 49-year-old male seen and examined at bedside. No recurrent chest discomfort over the past 24 hours. Ambulating in room and halls without symptoms. Nuclear stress test negative for inducible ischemia. Ranexa added on admission. Review of Systems Review of Systems: All systems reviewed & are unremarkable except as noted in Subjective Physical Exam Constitutional: well nourished; no acute distress Respiratory: no respiratory distress, no labored breathing and no retractions Auscultation: no crackles, no rales, no rhonchi and no wheezes Cardiovascular: Rate/Rhythm: regular rate and regular rhythm Heart Sounds: normal S1 and normal S2; no murmur Vessels: radial pulses present; no JVD and no carotid bruit Extremities: no edema Neurologic: CN's II-XI intact bilaterally and moves all extremities; no focal motor deficits Results & Data Vital Signs (Past 12 Hours) Vital Signs Temp Pulse Resp BP Pulse Ox O2 Del Method 04/04/25 17:03 36.6 C 93 H 20 118/81 95 04/04/25 15:07 Room Air 04/04/25 15:01 36.6 C 93 H 20 118/81 95 Room Air 04/04/25 11:11 36.4 C L 80 16 106/69 94 Room Air 04/04/25 08:30 Room Air 04/04/25 07:50 36.3 C L 70 106/71 93 Room Air Laboratory Results Intake and Output 12/29/25 12/29/25 12/29/25 06:59 14:59 22:59 Other: Other Intake Source NPO # Unmeasured Voids 1 1 Weight 91.4 kg 91.4 kg Weight Measurement Method Built in [facility] Patient Weight 04/05/25 06:59 Weight 91.4 kg PG Care Time/CCT Total # of Minutes Spent Total Time Spent with Patient: Total time spent is greater than 50% in coordination of care (as documented) at patient's floor/unit and/or counseling patient: Coding Level of Care Code 11426 SUB INP/OBS CARE 3/50MIN Diagnoses Chest pain R07.9 Chest pain type: unspecified Nocturnal hypoxia G47.34 VY (obstructive sleep apnea) G47.33 History of coronary artery stent placement Z95.5 CAD (coronary artery disease) I25.119 Associated angina: with unspecified form of angina Coronary Disease-Associated Artery/Lesion type: [place] artery [place] vs. transplanted heart: [place] heart (1) Chest pain Chest pain type: unspecified Qualified Code(s): R07.9 - Chest pain, unspecified (5) CAD (coronary artery disease) Associated angina: with unspecified form of angina Coronary Disease- Associated Artery/Lesion type: [place] artery [place] vs. transplanted heart: [place] heart Qualified Code(s): I25.119 - Atherosclerotic heart disease of [place] coronary artery with unspecified angina pectoris
== END 2025-04-04 17:34 | disposition home or self-care (01) | DRG 313 ==
LOC: EDINP 17:35 → ED 17:35 → 2E 21:06